=== PATIENT | male | born 1960 | race Caucasian/White ===

== ENCOUNTER 2019-06-15 09:35 | Emergency (ER) | payer MEDICAID ==
[~2019-06-15] VITALS: Ht 188 cm; Wt 95.3 kg
[2019-06-15 09:55] VITALS: BP 115/79
--- NOTE | 2019-06-15 10:20 | NUR ---
PATIENT PRESENTED TO ED C/O RIGHT LOWER LEG AND RIGHT FOOT ULCER, STATED "I RAN OUT OF MEDICATIONS AND SUPPLIES FOR MY WOUND", WOUND WITH MODERATE AMOUNT OF YELLOWISH DRAINAGE, NO ODOR, WOUND BED RED ON THE RIGHT LOWER LEG AND TOP OF FOOT, BOTTOM OF RIGHT FOOT WITH BLACK IN COLOR, NO C/O PAIN OR DISCOMFORT, PATIENT AAOX4, RR EVEN UNLABORED, AFEBRILE, ED MD DR. GARCIA MADE AWARE, BED IN LOWEST POSITION, WILL CONTINUE TO MONITOR CLOSELY. HX OF A-FIB, CHF, DM, HTN, LEFT BKA, RIGHT FOOT ULCER.
--- NOTE | 2019-06-15 10:33 | NUR ---
Patient discharged with v/s stable. Written and verbal after care instructions given and explained. Patient alert, oriented and verbalized understanding of instructions. Wheelchair bound. All questions addressed prior to discharge. Patient advised to follow up with PMD. Rx of augmentin 875 mg and doxycycline 100mg given. Patient educated on indication of medication including possible reaction and side effects. Opportunity to ask questions provided and answered.
[2019-06-15 10:34] VITALS: BP 115/79
== END 2019-06-15 10:33 | disposition home or self-care (01) ==
LOC: MED 09:35
DX: L98.499 Non-pressure chronic ulcer of skin of other sites with unspecified severity (principal); E11.9 Type 2 diabetes mellitus without complications; I11.0 Hypertensive heart disease with heart failure; I50.9 Heart failure, unspecified; Z98.890 Other specified postprocedural states
CPT/HCPCS: 82948; 99283

== ENCOUNTER 2019-06-16 19:58 | Inpatient (IN) | payer MEDICAID ==
[~2019-06-16] VITALS: Ht 188 cm; Wt 93.0 kg
[2019-06-16] MEDS: NACL 0.9% 1,000 ML IV SCH (09:11)
[2019-06-16 20:15] VITALS: BP 109/73
--- NOTE | 2019-06-16 20:24 | NUR ---
PT AMBULATED TO ER BED 8
[2019-06-16] MEDS ORDERED: NACL 0.9% 500 ML IV ONE (20:55)
--- NOTE | 2019-06-16 20:55 | NUR ---
PT C/O VOMITTING X1 TODAY AND LOSS OF APPETITE FOR 3DAYS. C/O GENERALIZED WEAKNESS. PT STATED "I'VE BEEN OUT OF MY HEART MEDS FOR 10 DAYS". PT WAS HERE YESTERDAY AND WAS GIVEN ANTIBIOTICS FOR HIS WOUNDS ON HIS RIGHT LOWER LEG AND RIGHT FOOT WOUNDS. C/O HEADACHE 5/10, NO BLURRY VISION, AAOX4, RR EVEN AND UNLABORED, TACHYCARDIC, ED MD DR. GARCIA MADE AWARE, WILL CONTINUE TO MONITOR CLOSELY, BED IN LOWEST POSITION.
[2019-06-16] MEDS ORDERED: DILTIAZEM 25 MG/5 ML VIAL IVP ONE (21:15)
[2019-06-16] MEDS ORDERED: ALUMINUM HYD/MAG/SIMETHICONE 30 ML UDC PO ONE (22:05)
[2019-06-16 22:08] LABS: BASOPHILS # (AUTO) 0.1 K/uL (0.00-0.22); BASOPHILS % (AUTO) 0.6 % (0.0-2.0); HEMATOCRIT 37.5 % (36-52); HEMOGLOBIN 11.6 g/dL (12.0-18.0); LYMPHOCYTES # (AUTO) 1.5 K/uL (2.0-11.5); LYMPHOCYTES % (AUTO) 13.6 % (20.5-51.1); MEAN CORPUSCULAR HEMOGLOBIN 26 pg (27-31); MEAN CORPUSCULAR HGB CONC 31 g/dL (33-37); MEAN CORPUSCULAR VOLUME 82.6 fL (80-94); MONOCYTES # (AUTO) 0.9 K/uL (0.8-1.0); MONOCYTES % (AUTO) 8.7 % (1.7-9.3); NEUTROPHILS # (AUTO) 8.2 K/uL (1.8-7.7); NEUTROPHILS % (AUTO) 77.1 % (42.2-75.2); PLATELET COUNT (AUTO) 235 K/uL (140-450); RED BLOOD CELL COUNT(AUTO) 4.54 MIL/uL (4.20-6.10); RED CELL DISTRIBUTION WIDTH 18.8 % (11.6-13.7); WHITE BLOOD COUNT (AUTO) 10.7 K/uL (4.8-10.8)
[2019-06-16 22:23] LABS: ANION GAP 13.8 (8-16); CARBON DIOXIDE 24.5 mmol/L (21-32); CREATININE 1.1 mg/dL (0.7-1.3); POTASSIUM 4.3 mmol/L (3.5-5.1)
--- NOTE | 2019-06-16 22:30 | NUR ---
PATIENT UNABLE TO GIVE URINE AT THIS TIME. WILL CONTINUE TO MONITOR CLOSELY.
[2019-06-16 22:31] LABS: ALBUMIN 2.6 g/dL (3.4-5.0); TOTAL BILIRUBIN 0.8 mg/dL (0.0-1.0)
[2019-06-16] MEDS ORDERED: PIPERACILLIN/TAZOBACTAM 3.375 GM in DEXTROSE 5% 50 ML IV ONE (22:45)
[2019-06-16] MEDS ORDERED: NACL 0.9% 1,000 ML IV ONE (22:45)
[2019-06-16] MEDS ORDERED: LORazepam 2 MG/ML VIAL IM/IVP PRN (23:00)
[2019-06-16] MEDS ORDERED: ONDANSETRON 4 MG/2 ML VIAL IM/IVP PRN (23:00)
[2019-06-16] MEDS ORDERED: DOCUSATE SODIUM 100 MG GELCAP PO PRN (23:00)
[2019-06-16] MEDS ORDERED: ACETAMINOPHEN 325 MG TAB PO PRN (23:00)
[2019-06-16] MEDS ORDERED: ZOLPIDEM 5 MG TAB PO PRN (23:00)
[2019-06-16] MEDS ORDERED: NITROGLYCERIN 0.4 MG TAB SL PRN (23:05)
[2019-06-16] MEDS ORDERED: PIPERACILLIN/TAZOBACTAM 3.375 GM VIAL IV ONE (23:17)
[2019-06-16 23:24] LABS: PROTHROMBIN TIME 14.5 secs (10.8-13.4)
[2019-06-16] MEDS ORDERED: DEXTROSE 50% 50 ML SYR IVP PRN (23:25)
[2019-06-16] MEDS ORDERED: HEPARIN PER PHARMACY MC PRN (23:30)
[2019-06-16 23:34] LABS: CHOL/HDL RATIO 3.8 (1-4.5); MAGNESIUM 1.8 mg/dL (1.8-2.4); PHOSPHORUS 3.2 mg/dL (2.5-4.9); THYROID STIMULATING HORMONE 1.7 uIU/mL (0.34-3.74)
--- NOTE | 2019-06-17 00:03 | NUR ---
PT TRANSPORTED TO [facility] RM 125B VIA GURNEY ON ACLS ACCOMPANIED BY 2RNS AND EMT, BEDSIDE REPORT GIVEN TO [facility] OWENS PT IN STABLE CONDITION
[2019-06-17 00:22] VITALS: BP 122/70
--- NOTE | 2019-06-17 00:22 | NUR ---
RECIEVED PT FROM ER / MAHESH ,LUIS M , AAOX4 .IV SITE INTACT AND PATENT , WITH LEFT LEG AMPUTATED , WITH RIGHT LEG AND FOOT OPEN WOUND - DRESSING DRY AND INTACT , TACHYCARDIC - 134 , ON O2 AT 4LPM/NC , ON NPO , TRANSFER TO BED , PLAN OF CARE DISCUSSED AND VERBALIZE UNDERSTANDING , MRSA PECIMEN COLLECTED AND SENT TO LAB . , ADMISSION ASSESSMENT DONE CALL LIGHT WITHIN REACH , PUT ON FALL PREVENTION PROTOCOL - BED ON LOW POSITION , SIDR RAILS UP X2 , WILL CONT. TO MONITOR.
[2019-06-17] MEDS ORDERED: FUROSEMIDE 20 MG/2 ML VIAL IVP SCH (00:25)
[2019-06-17] MEDS ORDERED: hePARIN / DEXT 5% PREMIX 250 ML IV SCH (01:25)
--- NOTE | 2019-06-17 01:48 | NUR ---
SENT TO CT DEPT - CT W/O CONTRAST OF AD=BD. AND PELVIS AND HEAD -DONE- PROCEDURE TOLERATED WELL.
[2019-06-17] MEDS ORDERED: METOPROLOL 25 MG TAB PO SCH ×3 (02:00→09:00)
--- NOTE | 2019-06-17 02:10 | NUR ---
BACK TO ROOM , PT STILL TACHYCARDIC , O2 SAT 95% , CALL LIGHT WITH REACH , REFER TO MOLLY MADE ORDER AND CARRIED OUT, WILL CONT. TO MONITOR
[2019-06-17] MEDS: MORPHINE SULFATE 2 MG/ML SYR IVP PRN ×2 (02:12→15:55)
[2019-06-17] MEDS ORDERED: PANTOPRAZOLE 40 MG INJ VIAL IVP ONE (02:30)
--- NOTE | 2019-06-17 02:30 | NUR ---
HEPARIN DRIP STARTED ORDERED , RESP. EVEN AND UNLABORED , CALL LIGHT WITHIN REACH , VOMITING , WILL CONT. TO MONITOR.
[2019-06-17] MEDS ORDERED: PANTOPRAZOLE 40 MG TABEC PO SCH ×3 (02:45→09:00)
[2019-06-17] MEDS ORDERED: BISACODYL 10 MG SUPP RC SCH (02:50)
[2019-06-17] MEDS ORDERED: ALUMINUM HYD/MAG/SIMETHICONE 30 ML UDC PO SCH (03:05)
[2019-06-17 04:00] VITALS: BP 124/65
--- NOTE | 2019-06-17 04:00 | NUR ---
MADE ROUNDS , RESP. EVEN AND UNLABORED , CALL LIGHT WITHIN REACH , WILL CONT. TO MONITOR. THE ER NURSE TRIED TO IV CANNULA INSERTION FOR ANOTHER ACCESS FOR IVF -BUT FAILED . INFROMED MOLLY.
[2019-06-17] MEDS ORDERED: DILTIAZEM 25 MG/5 ML VIAL IVP ONE (04:50)
--- NOTE | 2019-06-17 05:36 | NUR ---
PT REFUSED IV INSERTION AT THIS MOMENT, PT STATED LATER, HE IS NOT FEELING GOOD RIGHT NOW, EXPLAIN TO PT THE RISK AND BENEFITS PT STILL REFUSED.
[2019-06-17] MEDS: ALBUTEROL SULFATE/IPRATROPIU 3 ML SOL IH SCH ×3 (05:51→20:09)
[2019-06-17] MEDS ORDERED: PIPERACILLIN/TAZOBACTAM 3.375 GM in DEXTROSE 5% 50 ML IV SCH (06:00)
--- NOTE | 2019-06-17 06:00 | NUR ---
MADE ROUNDS , S/E BY MOLLY - NO FURTHER ORDERS MADE , CALL LIGHT WITHIN REACH , WILL CONT. TO MONITOR .
[2019-06-17] MEDS: BLOOD GLUCOSE MONITORING 1 DEV DEV FS SCH ×4 (06:36→21:20)
--- NOTE | 2019-06-17 07:00 | NUR ---
RECEIVED BEDSIDE REPORT FROM NIGHT NURSE. PT IS RESTING IN BED AOX4 BREATHING UNLABORED WITHOUT OBVIOUS SIGNS OF IMMEDIATE DISTRESS. NIGHT NURSE INFORMED ME SHE HAD NOT ADMINISTERED PM IV MEDICATIONS INCLUDING DILTIAZEM, ZOSYN, OR NORMAL SALINE WHILE PATIENT WAS RECEIVING IV HEPARIN THERAPY AND THAT PATIENT WAS AWAITING PICC LINE FOR FURTHER IV MEDICATION ADMINISTRATION. PT HAS HEPARIN INFUSING AT 1000 UNITS CURRENTLY THROUGH A RIGHT UPPER ARM IV THAT IS ASYMPTOMATIC AND PATENT. PT HAS ALL SAFETY MEASURES IN PLACE AND CALL LIGHT WITHIN REACH. PT HAS DRY AND INTACT DRESSINGS TO RIGHT LOWER EXTREMITY WITH NO ODOR. NIGHT NURSE INFORMED ME PATIENT BASELINE HEART RATE HAS BEEN ELEVATED ALL NIGHT AT TACHYCARDIA AND THIS IS NOT A NEW OCCURRENCE IF HEART RATE IS ELEVATED IN 140S WHEN I ASSESS.
--- NOTE | 2019-06-17 07:00 | NUR ---
ENDORSED TO AM SHIFT NURSE FOR CONTINUITY OF CARE - ON CLOSELY MONITOR.
[2019-06-17 08:00] VITALS: BP 130/98
[2019-06-17] MEDS: LACTOBACILLUS RHAMNOSUS GG 1 EACH CAP PO SCH (08:15)
[2019-06-17] MEDS: ASCORBIC ACID 500 MG TAB PO SCH (08:15)
[2019-06-17] MEDS: NICOTINE TRANSD SYS 14 MG/24 HR PATCH TD SCH ×2 (08:15→08:21)
[2019-06-17] MEDS: ASPIRIN 81 MG TAB.CHEW PO SCH (08:15)
[2019-06-17] MEDS: FERROUS SULFATE 325 MG TABEC PO SCH (08:16)
--- NOTE | 2019-06-17 08:21 | NUR ---
ADMINISTERED MEDICATIONS. SPOKE WITH CHARGE NURSE REGARDING HEPARIN SUBCUTANEOUS ORDERED WELL HEPARIN DRIP. SHE SPOKE TO PHARMACY AND CLARIFIED TO DISCONTINUE HEPARIN DRIP RIGHT NOW AND TO CALL BACK IN ABOUT AN HOUR REGARDING HEPARIN ADMINISTRATION FOR SUBCUTANEOUS. PT ALSO REFUSED NICOTINE PATCH. LABORER POWERHOUSE AT BEDSIDE RIGHT NOW PERFORMING WOUND CARE AND ASSESSMENT AND ULTRASOUND ALSO AT BEDSIDE.
--- NOTE | 2019-06-17 08:25 | NUR ---
AGENT TELEGRAPHER INFORMED ME WRITTEN ORDER FOR WOUND CARE INSTRUCTIONS ARE IN THE PATIENT CHART FOR REFERENCE FOR THE WOUND CARE INSTRUCTIONS.
--- NOTE | 2019-06-17 08:27 | NUR ---
SPOKE WITH PHARMACY REGARDING ZOSYN AND DILTIAZEM NOT ADMINISTERED ON PRIOR SHIFT AND IF I SHOULD ADMINISTER THESE MEDICATIONS NOW. SHE INFORMED ME SHE WOULD CHANGE THE TIMES AND TO ADMINISTER THESE MEDICATIONS NOW PENDING TIME CHANGES.
[2019-06-17] MEDS ORDERED: DILTIAZEM 25 MG/5 ML VIAL IVP SCH (08:29)
--- NOTE | 2019-06-17 08:47 | NUR ---
CALLED PICC LINE NURSE, AT [phone]. GOT CONSENT AND ALSO PICC LINE SUPPLIES. K[facility] PICC LINE NURSE WILL BE HERE IN 15 MINS. PHARMACY DATA ANALYST AT BEDSIDE
[2019-06-17] MEDS ORDERED: LISINOPRIL 5 MG TAB PO SCH (09:00)
[2019-06-17] MEDS: PIPERACILLIN/TAZOBACTAM 3.375 GM in DEXTROSE 5% 50 ML IV SCH ×3 (09:11→21:21)
--- NOTE | 2019-06-17 09:22 | NUR ---
ADMINISTERED MEDICATIONS CLARIFIED WITH PHARMACY TO ONLY ADMINISTER THE ONE DILTIAZEM ON EMAR AND ADMINISTER ZOSYN NOW. NO DISTRESS OF PT.
--- NOTE | 2019-06-17 09:30 | NUR ---
SPOKE TO DR TENA AT THIS TIME AFTER RECEIVING CALL AT 0907 REGARDING TROPONIN 0.078 AND LACTIC ACID 6.4 SHE INFORMED ME TO CALL RT AND REQUEST BREATHING TREATMENT WHICH I DID. NO FURTHER ORDERS OR OTHER CHANGES.
--- NOTE | 2019-06-17 09:58 | NUR ---
PT RESTING IN BED ULTRASOUND AT BEDSIDE.
--- NOTE | 2019-06-17 10:08 | NUR ---
REASSESSED BLOOD PRESSURE AND PULSE AFTER DILTIAZEM FOUND TO BE 129/90 AND 116 FOR PULSE. PT RESTING IN BED ULTRASOUND AT BEDSIDE. ALSO ADMINISTERED SUBCUTANEOUS HEPARIN. NO SIGNS OF DISTRESS AT THIS TIME.
[2019-06-17] MEDS ORDERED: VANCOMYCIN PER PHARMACY MC PRN (10:20)
--- NOTE | 2019-06-17 10:22 | NUR ---
PT RESTING IN BED HELPED SIT HIM UP TO FINISH HIS BREAKFAST. NO OTHER REQUESTS.
[2019-06-17] MEDS: INSULIN LISPRO SLIDING SCALE 100 UNITS/ML VIAL SUBQ PRN ×3 (11:10→21:37)
--- NOTE | 2019-06-17 11:11 | NUR ---
ADMINISTERED INSULIN PER SLIDING SCALE. PT RESTING IN BED REPOSITIONING HIMSELF AND DENYING ANY REQUESTS WITH NO DISTRESS.
[2019-06-17] MEDS: VANCOMYCIN 1,500 MG in DEXTROSE 5% 500 ML IV SCH (11:41)
--- NOTE | 2019-06-17 11:44 | NUR ---
ADMINISTERED MEDICATION. PT RESTING IN BED NO DISTRESS.
[2019-06-17 12:00] VITALS: BP 123/90
--- NOTE | 2019-06-17 13:19 | NUR ---
SPOKE TO ELBA PIERRE, THAT PATIENT NEEDS CAM BOOT PER PODIATRY. SHE WILL CONTACT PATIENTS INSURANCE IN REGARDS TO THE CAM BOOT
--- NOTE | 2019-06-17 13:20 | NUR ---
PT RESTING IN BED WITH NO DISTRESS. SPOKE TO HIM ABOUT HIS REQUESTED [facility] STATED THAT HE TAKES 60MG DAILY AND GETS IT AT [facility]" I SPOKE WITH DR TENA AND INFORMED HER OF THIS AND THAT THE [facility] IS CLOSED CURRENTLY AND ACCORDING TO PATIENT IS ONLY OPEN DURING THE EARLY MORNINGS 5 TO 9 AM. AWARE.
[2019-06-17] MEDS ORDERED: RIVAROXABAN 10 MG TAB PO SCH (14:00)
--- NOTE | 2019-06-17 14:08 | NUR ---
ADMINISTERED MEDICATIONS PER ORDER. PT RESTING IN BED AND THEN FELL ASLEEP AFTER ADMINISTRATION BREATHING UNLABORED AND WITHOUT DISTRESS.
[2019-06-17] MEDS: NACL 0.9% 1,000 ML IV SCH (15:08)
--- NOTE | 2019-06-17 15:16 | NUR ---
AT 1450 THIS NURSE WAS ON LUNCH BREAK WHEN I WAS CALLED TO COME TO PATIENT'S ROOM FOR MIDLINE ISSUE. WHEN I ARRIVED AT ROOM ONE OF THE LUMENS OF THE MIDLINE HAD BEEN CONNECTED WITH BOTH LURE LOCK WHITE CAPS ON THE SAME LUMEN (RED ONE) WHILE THE PURPLE LUMEN WAS CURRENTLY LEFT OPEN TO AIR. PT STATED THAT THE LINES HAD PULLED OFF OF THE LUMENS AND WERE HANGING AND SOMEONE HAD RECONNECTED THE ONE IV LINE ON TOP OF THE OTHER. I THEN REPLACED BOTH LURE LOCKS AND CLEANED BOTH LUMENS WITH ALCOHOL AND INFORMED MD OF WHAT HAD HAPPENED. THEY INFORMED ME TO CONTACT THE PICC LINE NURSE FOR FURTHER ADVICE. I THEN LEFT A MESSAGE WITH PICC LINE NURSE NUMBER TO CONTACT ME SOON POSSIBLE.
[2019-06-17] MEDS ORDERED: METO25TA PO (15:22)
[2019-06-17] MEDS ORDERED: ATOR20TA PO (15:22)
[2019-06-17] MEDS ORDERED: RIVA20TA4 PO (15:22)
[2019-06-17] MEDS ORDERED: INSU100I7 SQ (15:22)
[2019-06-17] MEDS ORDERED: DEXTROSE 50% 50 ML SYR IVP PRN (15:25)
[2019-06-17] MEDS ORDERED: INSULIN LISPRO SLIDING SCALE 100 UNITS/ML VIAL SUBQ PRN (15:25)
--- NOTE | 2019-06-17 15:37 | NUR ---
WAS INFORMED BY CHARGE NURSE THAT PICC LINE NURSE INFORMED TO ASPIRATE AND FLUSH LINES. INFORMED HER THAT IS WHAT I DID WHEN I REPLACED THE LURE LOCK LINES FOR THE MIDLINE.
[2019-06-17 16:00] VITALS: BP 115/89
[2019-06-17] MEDS: SODIUM FERRIC GLUCONATE 125 MG in NACL 0.9% 100 ML IV SCH (16:26)
[2019-06-17] MEDS ORDERED: BLOOD GLUCOSE MONITORING 1 DEV DEV FS SCH (16:30)
--- NOTE | 2019-06-17 16:37 | NUR ---
ADMINISTERED MEDICATION AND BROUGHT PATIENT A CUP OF TEA PER HIS REQUEST. NO OTHER REQUESTS OR SIGNS OF DISTRESS.
--- NOTE | 2019-06-17 16:50 | NUR ---
ATTEMPTED 2X TIMES TO CALL PHARMACY AND 1X ATTEMPT AT PHYSICALLY GOING TO PHARMACY TO REQUEST Z GUARD FOR PATIENT BE BROUGHT UP FOR MD ORDER. NO ANSWER TO PHONE OR DOOR ON ATTEMPTS.
[2019-06-17 16:51] LABS: BASOPHILS % (AUTO) 0.5 % (0.0-2.0); EOSINOPHILS % (AUTO) 0.3 % (0.0-4.0); HEMATOCRIT 37.7 % (36-52); HEMOGLOBIN 11.7 g/dL (12.0-18.0); LYMPHOCYTES # (AUTO) 1.2 K/uL (2.0-11.5); LYMPHOCYTES % (AUTO) 14.8 % (20.5-51.1); MEAN CORPUSCULAR HEMOGLOBIN 25 pg (27-31); MEAN CORPUSCULAR HGB CONC 31 g/dL (33-37); MEAN CORPUSCULAR VOLUME 81.8 fL (80-94); MONOCYTES # (AUTO) 0.7 K/uL (0.8-1.0); MONOCYTES % (AUTO) 8.5 % (1.7-9.3); NEUTROPHILS # (AUTO) 6.1 K/uL (1.8-7.7); NEUTROPHILS % (AUTO) 75.9 % (42.2-75.2); PLATELET COUNT (AUTO) 157 K/uL (140-450); RED BLOOD CELL COUNT(AUTO) 4.61 MIL/uL (4.20-6.10); RED CELL DISTRIBUTION WIDTH 19.1 % (11.6-13.7)
[2019-06-17 17:11] LABS: ANION GAP 14.1 (8-16); CARBON DIOXIDE 25.3 mmol/L (21-32); POTASSIUM 4.4 mmol/L (3.5-5.1)
--- NOTE | 2019-06-17 17:46 | NUR ---
PT RESTING IN BED NO DISTRESS OR REQUESTS.
--- NOTE | 2019-06-17 18:09 | NUR ---
PT RESTING IN BED NO SIGNS OF DISTRESS. BREATHING UNLABORED.
--- NOTE | 2019-06-17 19:00 | NUR ---
GAVE BEDSIDE REPORT TO NIGHT NURSE. ENDORSED WC ORDERS IN CHART IN PAPER FORM FOR FURTHER INSTRUCTIONS. PT IN STABLE CONDITION.
--- NOTE | 2019-06-17 19:00 | NUR ---
RECEIVED REPORT FORM HAYLEE RN DAYSHIFT AT BEDSIDE FOR CONTINUITY OF CARE, PT IN STABLE CONDITION
[2019-06-17 20:00] VITALS: BP 99/72
--- NOTE | 2019-06-17 20:00 | NUR ---
PT IN BED ALL FALLS PRECAUTIONS IN PLACE. PT IS AOX3-4. IV SITE IN LEFT AC 20G INTACT AND FLUSHED PATENT. PT ALSO HAS R UPPER MIDLINE DOUBLE LUMEN RUNNING N/S ORDERED. PT RIGHT FOOT DRESSING DRY AND INTACT. ALL REQUESTED NEEDS ATTENDED AND V/S FOLLOWS T 97.2 P 116 R 18 B/P 99/72 02 98% ON 2 LITERS VIA N/C. Addendum: 06/17/19 at 2351 by Isaura Petty RN PT HAS LEFT UPPER MIDLINE DOUBLE LUMEN CATH AND RIGHT ARM 20 G
[2019-06-17] MEDS ORDERED: DILTIAZEM 30 MG TAB PO SCH (21:00)
[2019-06-17] MEDS: METOPROLOL 25 MG TAB PO SCH (21:00)
--- NOTE | 2019-06-17 21:00 | NUR ---
PT FINGERSTICK IS 208, PT GIVEN 4 UNITS OF COVERAGE SUB Q. LOPRESSOR HELD DUE TO LOW B/P (99/72). PT ALSO GIVEN LANTUS COVERAGE AND A DIABETIC SNACK. IV SITE ON RIGHT UPPER ARM DISCONTINUED DUE TO FUNCTIONING MIDLINE ON LEFT UPPER ARM. ALL REQUESTED NEEDS ATTENDED AND CALL SMITH IN REACH. ALL FALLS AND CONTACT PRECAUTIONS IN PLACE.
[2019-06-17] MEDS: ATORVASTATIN 20 MG TAB PO SCH (21:27)
[2019-06-17] MEDS: INSULIN LANTUS 100 UNITS/ML 10 ML VIAL SUBQ SCH (21:47)
--- NOTE | 2019-06-17 23:30 | NUR ---
GERMAN MARIE AND IS RUNNING AT 250MLS ORDERED.
[2019-06-18] VITALS: BP 102/78
[2019-06-18] MEDS: VANCOMYCIN 1,500 MG in DEXTROSE 5% 500 ML IV SCH ×3 (00:17→23:28)
--- NOTE | 2019-06-18 00:35 | NUR ---
PT TRANSFERRED TO A WOUND BED. V/S FOLLOWS T 97.0 P 116 R 18 B/P 102/78 02 95% WITH 2 LITERS VIA N/C. ALL FALLS PRECAUTIONS IN PLACE AND ALL REQUESTED NEEDS ATTENDED.
[2019-06-18] MEDS: MORPHINE SULFATE 2 MG/ML SYR IVP PRN (02:00)
--- NOTE | 2019-06-18 02:00 | NUR ---
PT C/O OF SEVERE GENERALIZED PAIN, PT GIVEN MORPHINE PRN/IVP ORDERED. WILL MONITOR FOR EFFECT. ALL FALLS PRECAUTIONS IN PLACE, ALL REQUESTED NEEDS ATTENDED. CALL SMITH IN REACH.
[2019-06-18 04:00] VITALS: BP 96/63
--- NOTE | 2019-06-18 04:00 | NUR ---
PT IN BED ALL FALLS PRECAUTIONS AND CONTACT PRECAUTIONS IN PLACE. V/S T 97.6 P 129 R 18 B/P 96/63 02 94 WITH 2 LITERS VIA N/C. PT C/O MILD PAIN BUT TOLERABLE.
[2019-06-18] MEDS: HYDROcodone/APAP 5/325 MG 1 TAB TAB PO PRN (05:10)
--- NOTE | 2019-06-18 05:24 | NUR ---
PT C/O MODERATE PAIN IN RIBS, GIVEN 1 TAB OF NORCO PO/PRN. PT REQUEST FOLLOW UP CONCERNING METHADONE. PT SAID HE WAS TAKING 60 MG DAILY. HE REQUESTED THAT MD FOLLOW UP WITH CLINIC, RESIDENTS MADE AWARE.
[2019-06-18] MEDS: PANTOPRAZOLE 40 MG TABEC PO SCH (06:32)
[2019-06-18] MEDS: BLOOD GLUCOSE MONITORING 1 DEV DEV FS SCH ×4 (06:45→20:56)
[2019-06-18] MEDS: FUROSEMIDE 20 MG/2 ML VIAL IVP SCH ×2 (06:54→09:00)
--- NOTE | 2019-06-18 07:00 | NUR ---
LASIX ORDERED STAT BY DAMEON RIVERA MD MADE AWARE OF B/P 96/63. STILL WANTS LASIX TO BE GIVEN IVP.
--- NOTE | 2019-06-18 07:04 | NUR ---
RESIDENT IN ROOM MAKING AM ROUNDS. PT WAS GETTING OUT OF BREATH AND USING SOME ACCESSORY MUSCLES TO BREATH. RT CALLED TO GIVE NEB TREATMENT. MD DR XIAO ORDERED LASIX TO BE GIVEN STAT. LASIX GIVEN ALSO DAMEON RIVERA SAID THAT FLUIDS SHOULD BE TKO, BUT NO RATE WAS ORDERED AT THIS TIME. DIET WAS ALSO CHANGED DUE TO PT TOLERATING CLEAR LIQUID ID WELL TOLERATED. LABS DRAWN FROM MIDLINE AND SENT TO LAB. WILL ENDORSE PLAN OF CARE TO NEXT SHIFT. PT IN LOW BED
--- NOTE | 2019-06-18 07:10 | NUR ---
RECEIVED REPORT FROM RESOURCE ROOM TEACHER NURSE STEFFI FOR CONTINUITY OF CARE. PT IN STABLE CONDITION. IV INTACT AND PATENT. RESPIRATIONS EVEN AND UNLABORED. O2 2L VIA NC INTACT AND PATENT. SAFETY MEASURES IN PLACE. BED IN LOW POSITION. BED ALARM ON. CALL LIGHT AT BEDSIDE. WILL CONTINUE TO MONITOR.
[2019-06-18 07:41] LABS: MAGNESIUM 1.8 mg/dL (1.8-2.4); PHOSPHORUS 1.7 mg/dL (2.5-4.9)
[2019-06-18] MEDS: ALBUTEROL SULFATE/IPRATROPIU 3 ML SOL IH SCH ×3 (07:45→20:28)
[2019-06-18 07:47] LABS: BASOPHILS % (AUTO) 0.3 % (0.0-2.0); EOSINOPHILS # (AUTO) 0.1 K/uL (0-0.4); EOSINOPHILS % (AUTO) 0.7 % (0.0-4.0); HEMOGLOBIN 10.3 g/dL (12.0-18.0); LYMPHOCYTES # (AUTO) 0.5 K/uL (2.0-11.5); MEAN CORPUSCULAR HEMOGLOBIN 26 pg (27-31); MEAN CORPUSCULAR HGB CONC 31 g/dL (33-37); MEAN CORPUSCULAR VOLUME 81.5 fL (80-94); MONOCYTES # (AUTO) 0.5 K/uL (0.8-1.0); MONOCYTES % (AUTO) 5.7 % (1.7-9.3); NEUTROPHILS # (AUTO) 7.5 K/uL (1.8-7.7); NEUTROPHILS % (AUTO) 87.3 % (42.2-75.2); PLATELET COUNT (AUTO) 167 K/uL (140-450); RED BLOOD CELL COUNT(AUTO) 4.05 MIL/uL (4.20-6.10); WHITE BLOOD COUNT (AUTO) 8.5 K/uL (4.8-10.8)
[2019-06-18 08:00] VITALS: BP 113/83
--- NOTE | 2019-06-18 08:17 | NUR ---
CRITICAL VALUE TROPONIN 0.089. DR. DRAPER AWARE. WILL CONTINUE TO MONITOR.
[2019-06-18 08:36] LABS: CARBON DIOXIDE 26.6 mmol/L (21-32); CREATININE 0.8 mg/dL (0.7-1.3); POTASSIUM 3.6 mmol/L (3.5-5.1)
--- NOTE | 2019-06-18 08:40 | NUR ---
FAXED OVER MEDICAL RELEASE FOR TO [facility] PT RECEIVES METHADONE 60MG DAILY. SPOKE TO BETH. RELEASE PAPERWORK IN PT CHART.
[2019-06-18] MEDS ORDERED: PANTOPRAZOLE 40 MG TABEC PO SCH (09:00)
[2019-06-18] MEDS: NICOTINE TRANSD SYS 14 MG/24 HR PATCH TD SCH (09:00)
--- NOTE | 2019-06-18 09:00 | NUR ---
ELVIEIX HELD DUE TO EARLY MEDICATION ADMINISTRATION AT 0704. PT IN STABLE CONDITION. BED IN LOW POSITION. BED ALARM ON. CALL LIGHT AT BEDSIDE. WILL CONTINUE TO MONITOR.
[2019-06-18] MEDS: ASPIRIN 81 MG TAB.CHEW PO SCH (09:41)
[2019-06-18] MEDS: FERROUS SULFATE 325 MG TABEC PO SCH (09:42)
[2019-06-18] MEDS: LACTOBACILLUS RHAMNOSUS GG 1 EACH CAP PO SCH (09:42)
[2019-06-18] MEDS: LISINOPRIL 5 MG TAB PO SCH (09:42)
[2019-06-18] MEDS: ASCORBIC ACID 500 MG TAB PO SCH (09:42)
[2019-06-18] MEDS: METOPROLOL 25 MG TAB PO SCH (09:43)
[2019-06-18] MEDS: PIPERACILLIN/TAZOBACTAM 3.375 GM in DEXTROSE 5% 50 ML IV SCH ×3 (09:47→20:57)
[2019-06-18] MEDS: RIVAROXABAN 10 MG TAB PO SCH (10:03)
--- NOTE | 2019-06-18 10:15 | NUR ---
PODIATRY AT BEDSIDE AT THIS TIME. PT IN STABLE CONDITION. RESPIRATIONS EVEN AND UNLABORED. BED IN LOW POSITION. BED ALARM ON. CALL LIGHT AT BEDSIDE. WILL CONTINUE TO MONITOR.
[2019-06-18] MEDS: Z-GUARD PASTE TP SCH (10:16)
[2019-06-18] MEDS ORDERED: ALUMINUM HYD/MAG/SIMETHICONE 30 ML UDC PO SCH (11:05)
[2019-06-18] MEDS ORDERED: LIDOCAINE VISCOUS 2% 20 ML UDC PO SCH (11:06)
[2019-06-18] MEDS ORDERED: DICYCLOMINE HCL LIQUID 10 MG/5 ML UDC PO SCH (11:06)
[2019-06-18 12:00] VITALS: BP 121/74
--- NOTE | 2019-06-18 12:10 | NUR ---
PATIENT HAS BEEN SCREENED AND CATEGORIZED HIGH NUTRITION RISK. PATIENT WILL BE SEEN WITHIN 1-2 DAYS OF ADMISSION. 06/17/19 - 06/18/19 ARABELLA COX MBA, RD
--- NOTE | 2019-06-18 12:47 | NUR ---
PT EATING AT THIS TIME IN STABLE CONDITION. RESPIRATIONS EVEN AND UNLABORED. BED IN LOW POSITION. BED ALARM ON. CALL LIGHT AT BEDSIDE. WILL CONTINUE TO MONITOR.
[2019-06-18] MEDS ORDERED: DILTIAZEM 25 MG/5 ML VIAL IVP SCH (13:07)
--- NOTE | 2019-06-18 13:28 | NUR ---
GAVE ORDERED MEDICATION CARDIZEM DUE TO PT HR 166.
[2019-06-18] MEDS: INSULIN LISPRO SLIDING SCALE 100 UNITS/ML VIAL SUBQ PRN ×3 (13:36→21:03)
[2019-06-18] MEDS ORDERED: SODIUM PHOS / POTASSIUM PHOS 1 PKT PDR PO SCH (14:56)
--- NOTE | 2019-06-18 15:15 | NUR ---
06/18/19 RD INITIAL ASSESSMENT COMPLETED PLEASE REFER TO NUTRITION ASSESSMENT UNDER CARE ACTIVITY FOR ESTIMATED NUTRITIONAL NEEDS. RD RECOMMENDATIONS: 1. RECOMMEND CONTINUE CARDIAC DIET, SUFFICIENT TO MEET >75% ESTIMATED NUTRITIONAL NEEDS 2. F/U 3-5 DAYS; MODERATE RISK ARABELLA COX MBA, RD
--- NOTE | 2019-06-18 15:38 | NUR ---
EKG BEING PREFORMED AT BEDSIDE BY RT AT THIS TIME. PT IN STABLE CONDITION.
[2019-06-18 16:00] VITALS: BP 107/85
[2019-06-18] MEDS: DILTIAZEM 25 MG/5 ML VIAL IVP SCH ×2 (16:00→16:03)
--- NOTE | 2019-06-18 16:03 | NUR ---
GAVE ORDERED CARDIZEM MEDICATION DUE TO HR 138.
[2019-06-18] MEDS ORDERED: METHADONE 10 MG TAB PO SCH (16:55)
[2019-06-18] MEDS: SODIUM FERRIC GLUCONATE 125 MG in NACL 0.9% 100 ML IV SCH (17:41)
[2019-06-18] MEDS ORDERED: METOPROLOL 50 MG TAB ONE (17:47)
--- NOTE | 2019-06-18 18:01 | NUR ---
PT SLEEPING AT THIS TIME. RESPIRATIONS EVEN AND UNLABORED. BED IN LOW POSITION. BED ALARM ON. CALL LIGHT AT BEDSIDE. WILL CONTINUE TO MONITOR.
--- NOTE | 2019-06-18 19:18 | NUR ---
GAVE REPORT TO CONSULTANTS INTERN NURSE DAMEON FOR CONTINUITY OF CARE. PT IN STABLE CONDITION.
--- NOTE | 2019-06-18 19:19 | NUR ---
RECEIVED PT FROM [facility]. A/O X4 PERSON, PLACE TIME AND EVENT. DISCUSSED PLAN OF CARE. VERBALIZED UNDERSTANDING. NASAL CANULA 2L. NO RESPIRATORY DISTRESS. SKIN IS NON INTACT. R FOOT WOUND. DRESSING CLEAN DRY AND INTACT. NO DRAINAGE NOTED. LEFT LOWER LEG AMPUTATION. CONTACT PRECAUTIONS IN PLACE. MIDLINE BREONNA DOUBLE LUMEN. PATENT AND INTACT. BEDREST. FALL RISK PROTOCOL IN PLACE. BED IN LOWEST POSITION. CALL LIGHT WITHIN REACH. WILL CONTINUE.
[2019-06-18 20:00] VITALS: BP 115/85
[2019-06-18] MEDS: ATORVASTATIN 20 MG TAB PO SCH (21:00)
[2019-06-18] MEDS: METOPROLOL 50 MG TAB PO SCH (21:00)
[2019-06-18] MEDS ORDERED: METOPROLOL 25 MG TAB PO SCH (21:00)
--- NOTE | 2019-06-18 21:00 | NUR ---
METOPROLOL NOT GIVEN DUE TO DAYSHIFT RN GIVING DOSE AT 1743. CURRENT BP 115/85. HR UNCONTROLLED A FIB. MAINTAINING IN THE 140'S. WILL CONTINUE TO MONITOR.
[2019-06-18] MEDS: INSULIN LANTUS 100 UNITS/ML 10 ML VIAL SUBQ SCH (21:02)
--- NOTE | 2019-06-18 23:00 | NUR ---
DR BARROSO UNDER DR COOPER GROUP MADE AWARE OF PT UNCONTROLLED AFIB MAINTAINING IN THE 140'S. SAYS TO UPDATE HER IF HR INCREASES. WILL CONTINUE TO MONITOR.
[2019-06-18] MEDS: ALBUTEROL SULFATE/IPRATROPIU 3 ML SOL IH PRN (23:43)
[2019-06-19] VITALS (36 sets, daily range): BP systolic 88–176; BP diastolic 23–89
--- NOTE | 2019-06-19 | NUR ---
BREATHING TREATMENT CALLED FOR PT. O2 SAT 94%. HR REMAINS AT 144.
--- NOTE | 2019-06-19 00:15 | NUR ---
RT AT BEDSIDE.
[2019-06-19] MEDS ORDERED: FAMOTIDINE 20 MG TAB ONE (00:25)
[2019-06-19] MEDS: FAMOTIDINE 20 MG TAB PO SCH ×2 (00:53→09:44)
--- NOTE | 2019-06-19 01:29 | NUR ---
PT REQUESTED PAIN MEDS. WILL MEDICATE WITH PRN PAIN MEDICATION.
[2019-06-19] MEDS: HYDROcodone/APAP 5/325 MG 1 TAB TAB PO PRN (01:35)
--- NOTE | 2019-06-19 03:00 | NUR ---
ASSISTED WITH [facility]. TOLERATED WELL. NO PT DISTRESS. REQUESTED COLACE PRN. WILL ADMINISTER AND WILL CONTINUE TO MONITOR.
--- NOTE | 2019-06-19 04:00 | NUR ---
PT REFUSED VITALS TO BE TAKEN, STATES HE HASN'T BEEN ABLE TO REST DUE TO CONSTANT INTERRUPTION WITH HIS SLEEP. NO SIGNS OF RESP DISTRESS. NO LABORED BREATHING. NO SOB. EVEN CHEST RISE. HR 123. O2 SAT 94%. WILL CONTINUE TO MONITOR.
[2019-06-19] MEDS: PANTOPRAZOLE 40 MG TABEC PO SCH (05:35)
[2019-06-19] MEDS: BLOOD GLUCOSE MONITORING 1 DEV DEV FS SCH ×4 (05:39→21:00)
[2019-06-19] MEDS: INSULIN LISPRO SLIDING SCALE 100 UNITS/ML VIAL SUBQ PRN ×3 (06:09→16:34)
--- NOTE | 2019-06-19 06:10 | NUR ---
BLOOD GLUCOSE 211. 4 UNITS OF HUMALOG GIVEN. EDUCATED ON SIDE EFFECTS. VERBALIZED UNDERSTANDING. TOLERATED WELL.
--- NOTE | 2019-06-19 06:17 | NUR ---
WILL ENDORSE PT TO DAYSHIFT RN FOR CONTINUITY OF CARE. PT IN STABLE CONDITION. WILL CONTINUE TO MONITOR.
[2019-06-19 06:48] LABS: ANION GAP 10.8 (8-16); CARBON DIOXIDE 27.8 mmol/L (21-32); POTASSIUM 4.6 mmol/L (3.5-5.1)
[2019-06-19 06:49] LABS: CREATININE 0.8 mg/dL (0.7-1.3)
[2019-06-19 06:56] LABS: BASOPHILS % (AUTO) 0.2 % (0.0-2.0); EOSINOPHILS % (AUTO) 0.1 % (0.0-4.0); HEMATOCRIT 33.4 % (36-52); HEMOGLOBIN 10.6 g/dL (12.0-18.0); LYMPHOCYTES # (AUTO) 0.7 K/uL (2.0-11.5); MEAN CORPUSCULAR HEMOGLOBIN 26 pg (27-31); MEAN CORPUSCULAR HGB CONC 32 g/dL (33-37); MEAN CORPUSCULAR VOLUME 81.6 fL (80-94); MONOCYTES # (AUTO) 0.7 K/uL (0.8-1.0); MONOCYTES % (AUTO) 9.8 % (1.7-9.3); NEUTROPHILS # (AUTO) 5.3 K/uL (1.8-7.7); NEUTROPHILS % (AUTO) 78.9 % (42.2-75.2); PLATELET COUNT (AUTO) 154 K/uL (140-450); RED BLOOD CELL COUNT(AUTO) 4.09 MIL/uL (4.20-6.10); RED CELL DISTRIBUTION WIDTH 19.1 % (11.6-13.7); WHITE BLOOD COUNT (AUTO) 6.7 K/uL (4.8-10.8)
[2019-06-19] MEDS: ALBUTEROL SULFATE/IPRATROPIU 3 ML SOL IH SCH ×3 (07:03→19:00)
[2019-06-19 07:13] LABS: APPEARANCE,URINE CLEAR (CLEAR); BILIRUBIN,URINE 1+ (NEGATIVE); BLOOD, URINE NEGATIVE (NEGATIVE); COLOR,URINE YELLOW (YELLOW); LEUKOCYTE ESTERASE ,URINE NEGATIVE (NEGATIVE); UGLUCOSE 2+ (NEGATIVE)
--- NOTE | 2019-06-19 07:19 | NUR ---
RECEIVED PT FROM PRINTED CIRCUIT BOARDS PINNER RN DAMEON. PT IS AAOX4 TO PERSON, PLACE TIME AND EVENT. PT ON O2 2L VIA NASAL CANULA. NO RESPIRATORY DISTRESS NOTED AT THIS TIME. SKIN IS NON INTACT. PT HAS R FOOT S/P DEBRIDEMENT. DRESSING CLEAN DRY AND INTACT. PER PRINTED CIRCUIT BOARDS PINNER RN, PODIATRY WILL CHANGE WOUND DRESSING. LEFT LOWER LEG AMPUTATION. CONTACT PRECAUTIONS IN PLACE FOR HX OF MRSA NARES. PT HAS MIDLINE BREONNA DOUBLE LUMEN, NO BLOOD DRAWS ALLOWED. PATENT AND INTACT. PT IS ON BEDREST BUT HAS WHEELCHAIR AT BEDSIDE. FALL RISK PROTOCOL IN PLACE. BED IN LOWEST POSITION. CALL LIGHT WITHIN REACH. DISCUSSED POC WITH PT AND PT VERBALIZED UNDERSTANDING. WILL ROUND FREQUENTLY ON PT.
--- NOTE | 2019-06-19 08:58 | NUR ---
Wound care consult not done. Pt. was seen and treated by Brady Sepulveda DPM on 06/18/19and will f/u in house.
[2019-06-19] MEDS: LISINOPRIL 5 MG TAB PO SCH (09:00)
[2019-06-19] MEDS: NICOTINE TRANSD SYS 14 MG/24 HR PATCH TD SCH (09:00)
[2019-06-19] MEDS: METOPROLOL 50 MG TAB PO SCH ×2 (09:00→14:21)
--- NOTE | 2019-06-19 09:24 | NUR ---
ADMINISTERED MORNING MEDS TO PT. PT TOLERATED THEM WELL. PER PARAMETERS, ZESTRIL AND LOPRESSOR WERE HELD. WILL NOTIFY MD. BED IN LOW POSITION, CALL LIGHT WITHIN REACH. PT DENIES PAIN OR SOB AT THIS TIME. WILL CONTINUE TO ROUND FREQUENTLY ON PT.
[2019-06-19] MEDS: RIVAROXABAN 10 MG TAB PO SCH (09:42)
[2019-06-19] MEDS: ASPIRIN 81 MG TAB.CHEW PO SCH (09:43)
[2019-06-19] MEDS: METHADONE 10 MG TAB PO SCH (09:43)
[2019-06-19] MEDS: LACTOBACILLUS RHAMNOSUS GG 1 EACH CAP PO SCH (09:43)
[2019-06-19] MEDS: FUROSEMIDE 20 MG/2 ML VIAL IVP SCH (09:44)
[2019-06-19] MEDS: FERROUS SULFATE 325 MG TABEC PO SCH (09:44)
[2019-06-19] MEDS: PIPERACILLIN/TAZOBACTAM 3.375 GM in DEXTROSE 5% 50 ML IV SCH ×3 (09:44→21:55)
[2019-06-19] MEDS: ASCORBIC ACID 500 MG TAB PO SCH (09:44)
[2019-06-19] MEDS: Z-GUARD PASTE TP SCH (09:45)
--- NOTE | 2019-06-19 10:02 | NUR ---
PER , LOPRESSOR TO BE ADMINISTERED FOR UNCONTROLLED A-FIB. WILL ADMINISTER TO PT.
[2019-06-19 10:10] LABS: RBC,URINE 0-5 /HPF (0-5); WBC,URINE 0-5 /HPF (0-5); YEAST,URINE Few /HPF (None Seen)
[2019-06-19 10:11] LABS: NITRITE, URINE NEGATIVE (NEGATIVE)
--- NOTE | 2019-06-19 10:20 | NUR ---
PT REFUSING LOPRESSOR AT THIS TIME. I EXPLAINED THE IMPORTANCE OF MED BUT PATIENT DOES JOT WANT IT AT THIS TIME. WILL RETRY LATER. ORDERED TO GIVE FOR UNCONTROLLED A FIB.
[2019-06-19 10:49] LABS: BARBITURATE, URINE NEG. ng/ml (NEG <=200); BENZODIAZEPINE, URINE NEG. ng/mL (NEG <=200); CANNABINOID, URINE NEG. ng/mL (NEG <=50); COCAINE, URINE NEG. ng/mL (NEG <=300); OPIATE, URINE POS. ng/mL (NEG <=2000); PHENCYCLIDINE SCREEN,URINE NEG. ng/mL (NEG <=25)
--- NOTE | 2019-06-19 11:03 | NUR ---
RESIDENT AWARE OF PT REFUSING LOPRESSOR. WILL WAIT FOR ADDITIONAL ORDERS.
--- NOTE | 2019-06-19 12:11 | NUR ---
DISCHARGE PLANNING Received CM order for a Cam boot. Contacted [facility] and was informed [employer] is the DME supplier for this member. [employer] was called however [employer] doesn't dispense cam boots. Called [facility] and was requested to submit a prior auth form for this pt for the boot. Form was faxed to . Sw will continue following up as needed. Stacy Hoyt, ACSW, Ext [phone]
[2019-06-19] MEDS: VANCOMYCIN 1,500 MG in DEXTROSE 5% 500 ML IV SCH (12:30)
[2019-06-19] MEDS ORDERED: METOPROLOL 5 MG/5 ML VIAL IV SCH (12:52)
[2019-06-19] MEDS ORDERED: SODIUM PHOS / POTASSIUM PHOS 1 PKT PDR PO SCH (12:53)
--- NOTE | 2019-06-19 13:04 | NUR ---
PT RESTING IN BED. NO COMPLAINTS OF PAIN OR SOB AT THIS TIME. PT HR JUMPING FROM 130'S TO 160'S. RESIDENT ASSIGNED IS AWARE. AWAITING ORDERS FOR PT.
--- NOTE | 2019-06-19 13:24 | NUR ---
SATURATION 88% ON ROOM AIR PATIENT SELF REMOVED SUPPLEMENTAL OXYGEN POST HHN THERAPY PLACED ON SUPPLEMENTAL OXYGENT AT 2 LPM VIA NC
[2019-06-19] MEDS ORDERED: METOCLOPRAMIDE 10 MG/2 ML INJ VIAL IVP PRN (14:00)
[2019-06-19] MEDS ORDERED: glipiZIDE ER 5 MG TABER PO SCH (14:00)
--- NOTE | 2019-06-19 14:03 | NUR ---
S.T. BEDSIDE SWALLOW EVAL COMPLETED Pt presents with adequate oropharyngeal swallow function across all textures. No overt s/s aspiration observed. Pt cleared throat during eval but verbally indicated that it was not due to aspiration. Recommend: 1) Continue P.O. diet but downgrade to mechanical soft chopped, thin liquids due to pt edentulous and not compliant with sitting fully upright for P.O. intake. 2) P.O. meds as tolerated. No further tx indicated at this time. DC to [facility]. Endorsed to [facility]. TIME [id number]
--- NOTE | 2019-06-19 14:09 | NUR ---
WOUND CARE EVALUATION NOTE: SKIN ASSESSMENT DONE , NO OPEN ACTIVE WOUND. -SACRALCOCCYX BLANCHABLE REDNESS, OPTIFOAM IN PLACE FOR PREVENTION -R/L INNER BUTTOCKS INCONTINENT ASSOCIATED DERMATITIS, SKIN REDNESS WITH SKIN INTACT -LEFT BKA STUMP HEALED SCARS -RIGHT LOWER LEG DRESSING CHANGED BY PODIATRY TODAY. DRESSING DRY CLEAN AND IN PLACE. RECOMMENDATION: -CONTINUE Z-GUARD TO R/L BUTTOCKS BID AND PRN IF SOILING -APPLY OPTIFOAM TO SACRALCOCCYX PREVENTION -TURN AND REPOSITION PATIENT Q 2H -ASSESS AND MONITOR SKIN CONDITION DURING POSITION CHANGE -OFFLOAD BILATERAL HEELS BY PLACING PILLOWS UNDER CALVES AT ALL TIMES, UNLESS OTHERWISE CONTRAINDICATED -PRESSURE REDISTRIBUTION BY PLACING PILLOWS AND OFFLOADING SACRALCOCCYX -KEEP SKIN CLEAN AND DRY AT ALL TIMES.
[2019-06-19] MEDS ORDERED: SENNA 8.6 MG TAB PO SCH (14:15)
[2019-06-19] MEDS ORDERED: AMIODARONE 150 MG in DEXTROSE 5% 100 ML IV SCH (15:00)
--- NOTE | 2019-06-19 15:30 | NUR ---
PT TRANSFERRED FROM TELEMETRY 125 B TO ICU. PT IS AFEBRILE, AAOX4, ABLE TO MAKE NEEDS KNOWN. SINUS TACHY ON MONITOR, HR IN 140'S. ON O2 AT 3 LPM/NC, CRACKLES HEARD BILATERAL LUNGS, NO SOB NOTED. MIDLINE DOUBLE LUMEN TO LEFT UPPER ARM IN PLACE. ABDOMEN SOFT, ROUND, NONTENDER, BOWEL SOUNDS PRESENT X 4 QUADRANTS. SKIN IS DRY AND WARM TO TOUCH. NON-BLANCHABLE REDNESS NOTED TO SACRAL AREA, OPTIFOAM DRESSING IN PLACE. DRESSING CLEAN DRY AND INTACT TO RIGHT LEG WOUNDS, LEFT LEG AMPUTATION NOTED.NO SIGNS OF DISTRESS NOTED. HOB 30 DEGREES, BED IN LOWEST POSITION LOCKED, CALL LIGHT WITHIN REACH. WILL CONTINUE TO MONITOR. Addendum: 06/19/19 at 1654 by Jurgen Tyler RN Leon. FIB ON MONITOR
--- NOTE | 2019-06-19 15:30 | NUR ---
PT TRANSFERRED TO ICU FOR HIGHER LEVEL OF CARE. PER RESIDENT, PT HR TOO UNSTABLE TO CONTINUE IN MED SURG/TELE. REPORT GIVEN TO [facility] ICU NURSE FOR CONTINUITY OF CARE. PT STABLE AND COOPERATIVE ASIDE FROM UNCONTROLLED A-FIB. ALL BELONGINGS INCLUDING WHEELCHAIR TAKEN WITH PT.
[2019-06-19] MEDS: AMIODARONE 450 MG in DEXTROSE 5% 250 ML IV SCH (16:09)
[2019-06-19] MEDS: ALBUTEROL SULFATE/IPRATROPIU 3 ML SOL IH PRN (16:47)
--- NOTE | 2019-06-19 17:30 | NUR ---
PT ABLE TO SIGN CONSENT FORM FOR CT CHEST ANGIO W/WO CONTRAST. PT IS NPO SINCE 16:30.
[2019-06-19] MEDS ORDERED: INSULIN LISPRO 100 UNITS/ML VIAL SUBQ SCH (18:00)
--- NOTE | 2019-06-19 18:00 | NUR ---
PT IS NPO SINCE [address] CHEST ANGIO W/WO CONTRAST, AND ONE TIME DOSE OF HUMALOG 10 UNITS HELD AT THIS TIME.
--- NOTE | 2019-06-19 19:26 | NUR ---
REPORT GIVEN TO TRAFFIC II MANAGER RN FOR CONTINUITY OF CARE. NO S/SX OF ACUTE DISTRESS NOTED AT THIS TIME.
--- NOTE | 2019-06-19 19:30 | NUR ---
RECEIVED BEDSIDE REPORT FROM MORNING SHIFT RN, CLEMENT. PT IS AWAKE, AAOX4. PERRL. ON 2L NASAL CANNULA, CRACKLES HEARD ON UPPER/LOWER BILATERAL LOBES. PT IS ON CARDIAC DIET, NPO AT THIS TIME DUE TO CT WITH CONTRAST AT 2029. BOWEL SOUNDS ACTIVE X4. PT IS CONTINENT HAS URINAL AT BEDSIDE. PT IS AFIB ON SUBSTANCE ABUSE THERAPIST. BP 155/60, RR 26, HR 138, TEMP 97.9. SATING 99%. PT HAS LEFT UA MIDLINE NS TKO AND AMIODARONE DRIP AT 33ML/HR. HOB ABOVE 30 DEG, LEFT BKA, AND CELLULITIS ON RLE COVERED WITH DRESSING, REMAINS DRY/INTACT. ON CONTACT PRECAUTIONS.
--- NOTE | 2019-06-19 19:40 | NUR ---
CALLED DR. HEATH INFORMED PT COMPLAINS OF 8/10 PAIN AT RLE FOR CELLULITIS AND PT NPO STATUS. TO PUT NEW ORDER FOR MORPHINE.
--- NOTE | 2019-06-19 19:46 | NUR ---
HHN TX NOT GIVEN. PT HR IS 145. RN AWARE AND AT BEDSIDE. WILL CONTINUE TO MONITOR.
[2019-06-19] MEDS: MORPHINE SULFATE 2 MG/ML SYR IVP PRN (20:11)
--- NOTE | 2019-06-19 20:22 | NUR ---
CALLED DR DE IN TO SIGN CONSENT FORM FOR CT CONTRAST, STATED OK TO HOLD PO MEDS AT THIS TIME
--- NOTE | 2019-06-19 20:36 | NUR ---
CALLED CT, SPOKE WITH MARGARITA, STATED PT HAS TO WAIT FOR CT SCAN AT THIS TIME THEY ARE BUSY WITH ER PATIENTS. WILL CALL BACK WITHIN HOUR.
[2019-06-19] MEDS: METOPROLOL 25 MG TAB PO SCH (21:00)
[2019-06-19] MEDS ORDERED: INSULIN LANTUS 100 UNITS/ML 10 ML VIAL SUBQ SCH (21:00)
[2019-06-19] MEDS ORDERED: MAGNESIUM CITRATE 300 ML BTL PO SCH (21:00)
[2019-06-19] MEDS: INSULIN LANTUS 100 UNITS/ML 10 ML VIAL SUBQ SCH (21:00)
--- NOTE | 2019-06-19 21:59 | NUR ---
CALLED SPOKE WITH DR. HEATH, INFORMED THAT WE HELD PO MEDS INCLUDING LOPRESSOR AT THIS TIME, PT REMAINS ON AMIODARONE DRIP, AND HR ELEVATED AT 129-133. DR. NUNES AT BEDSIDE TO SEE PATIENT.
[2019-06-19] MEDS ORDERED: FUROSEMIDE 20 MG/2 ML VIAL IVP SCH (22:30)
--- NOTE | 2019-06-19 22:59 | NUR ---
RE-CHECK BG SINCE PATIENT IS NPO AT THIS TIME FOR CT, PREVIOUS BG WAS 161. DID NOT ADMINISTER LANTUS INSULIN. INFORMED DR. NUNES STATED OK TO NOT GIVE TH LANTUS INSULIN, LOPRESSOR HELD, AND TO ADMINISTER REMAINING PO MEDS AFTER PT RETURNS FROM CT SCAN, WILL CARRY OUT. Addendum: 06/20/19 at 0113 by Ekaterina Solano RN BG THAT WAS REASSESSED AT THIS TIME WAS 93.
--- NOTE | 2019-06-19 23:10 | NUR ---
CALLED DR. NUNES, CONFIRMED TO GIVE THE CITROMA AFTER THE CT SCAN.
[2019-06-20] VITALS (99 sets, daily range): BP systolic 84–149; BP diastolic 35–100
--- NOTE | 2019-06-20 | NUR ---
TIME [address] SCAN GENESIS FROM RADIOLOGY ASSISTED GETTING PATIENT SET UP, INSERTED CONTRAST DYE INTO BREONNA MIDLINE AND CHECKED IV IS SECURE AND OKAY TO USED. PT RETURNED TO ICU AT 0000.
[2019-06-20] MEDS: POLYETHYLENE GLYCOL 17 GM/PKT PO SCH ×3 (00:11→20:41)
[2019-06-20] MEDS: ATORVASTATIN 20 MG TAB PO SCH ×2 (00:11→20:41)
[2019-06-20] MEDS: SENNA 8.6 MG TAB PO SCH ×3 (00:12→20:41)
[2019-06-20] MEDS: VANCOMYCIN 1,500 MG in DEXTROSE 5% 500 ML IV SCH ×3 (00:17→22:36)
[2019-06-20] MEDS: Z-GUARD PASTE TP SCH ×2 (00:18→13:22)
[2019-06-20] MEDS ORDERED: MAGNESIUM CITRATE 300 ML BTL ONE (00:34)
[2019-06-20] MEDS: AMIODARONE 450 MG in DEXTROSE 5% 250 ML IV SCH ×2 (02:46→19:03)
--- NOTE | 2019-06-20 02:51 | NUR ---
HR DECREASED TO 114-118, AMIODARONE DRIP REMAINS INFUSING AT 17CC/HR, PT EASY TO AROUSE. ON 2L N/C SATING AT 96%, RR 25. HOB ABOVE 30 DEG.
--- NOTE | 2019-06-20 04:20 | NUR ---
REPOSITIONED PATIENT IN BED, BED BATH PROVIDED TO PATIENT ASSIST X2, PT COMPLAINS OF DIFFICULTLY BREATHING AND PLACED NASAL CANNULA IN MOUTH. RT CALLED AT THIS TIME. ELEVATED HOB TO 45 DEG.
--- NOTE | 2019-06-20 04:30 | NUR ---
CALLED RT RAH AT BEDSIDE TO ASSESS PATIENT, RECOMMENDED TO INTUBATED PATIENT, CONTACT ER PHYSICIAN AND RESIDENT DOCS ON NEED FOR INTUBATION.
--- NOTE | 2019-06-20 04:55 | NUR ---
CALLED DR. NUNES ENDORSED THAT ACCORDING TO HOUSE SOUP NOT ENOUGH OF FENT/VERSED AVAILABLE AT THIS TIME WILL NEED TO CALL [facility] TO [facility]IX, DR NUNES TO UPDATE WITH NEW ORDERS FOR SEDATION.
[2019-06-20] MEDS ORDERED: SUCCINYLCHOLINE CHLORIDE 200 MG/10 ML VIAL IVP SCH (05:00)
[2019-06-20] MEDS ORDERED: ETOMIDATE 20 MG/10 ML VIAL IVP SCH (05:00)
--- NOTE | 2019-06-20 05:00 | NUR ---
CALLED [facility], SPOKE WITH JOSÉ MIGUEL, UPDATED ON IVP SEDATION NEEDS TO BE VERIFIED AT THIS TIME.
--- NOTE | 2019-06-20 05:01 | NUR ---
CALLED TO ICU FOR PT HAVING TROUBLE BREATHING. BAGGED PT WITH 100% FIO2. PT INTUBATED AT 0430 BY ER . MD NUNES AT BEDSIDE WELL. SETTINGS PER AC 14,500,+5 AND TITRATE FIO2 TOLERATED. PT INTUBATED WITH 7.5 ETT AT 23 CM AT LIP. ETT IS IN PLACE AND SECURED WITH ANCHOR-FAST. COLLECTED SPUTUM SAMPLE BUT LAB WONT ACCEPT IT BECAUSE ITS RED FLUID. WILL ENDORSE TO NEXT SHIFT TO RECOLLECT. VENT IS CONNECTED TO RED OUTLET.ALARMS AUDIBLE. AMBU BAG AT BEDSIDE. PT IS NOT ALERT. NO SOB OR DISTRESS. WILL CONTINUE TO MONITOR.
[2019-06-20] MEDS: MIDAZOLAM 2 MG/2 ML VIAL IV PRN ×2 (05:06→08:20)
--- NOTE | 2019-06-20 05:10 | NUR ---
GENESIS FROM RAD AT BEDSIDE TO COMPLETE CHEST XRAY FOLLOWING INTUBATION/NGT PLACEMENT.
--- NOTE | 2019-06-20 05:20 | NUR ---
CALLED JOSE RAMIREZ TO UPDATED ON PATIENT STATUS LEFT MESSAGE WITH CALL BACK NUMBER FOR ICU.
[2019-06-20] MEDS ORDERED: FUROSEMIDE 40 MG/4 ML VIAL IVP SCH (05:30)
--- NOTE | 2019-06-20 05:36 | NUR ---
RECEIVED CALL BACK FROM JOSE RAMIREZ, PROVIDED TELEPHONE CONSENT FOR RESTRAINTS AND UPDATED ON CURRENT PT STATUS. JOSE STATED SHE WILL MAKE A VISIT TO ICU TO SEE PATIENT.
[2019-06-20 06:07] LABS: HEPATITIS A ANTIBODY IGM Negative (Negative); HEPATITIS B CORE AB TOTAL Positive (Negative); HEPATITIS B SURFACE ANTIBODY Reactive (.); HEPATITIS B SURFACE ANTIGEN Negative (Negative)
[2019-06-20] MEDS: MORPHINE SULFATE 2 MG/ML SYR IVP PRN (06:13)
[2019-06-20] MEDS: ALBUTEROL SULFATE/IPRATROPIU 3 ML SOL IH SCH ×3 (06:34→19:18)
--- NOTE | 2019-06-20 06:35 | NUR ---
RECEIVED PT ON CARESCAPE ON DOCUMENTED SETTINGS, PTS ETT IS SECURE SIZE 7.5 AT 23 CM, ANCHOR FAST IN PLACE, PT IN HF QUIET HHN WITHHELD DUE TO ELEVATED HEART RATE, BMV HOB, VENT PLUGGED INTO RED OUTLET
--- NOTE | 2019-06-20 06:35 | NUR ---
INCREASE RR TO 18, VT TO 550
[2019-06-20] MEDS ORDERED: DEXT 5% / NACL 0.9% 500 ML IV SCH (06:50)
[2019-06-20] MEDS: BLOOD GLUCOSE MONITORING 1 DEV DEV FS SCH ×4 (06:59→21:32)
--- NOTE | 2019-06-20 07:01 | NUR ---
100ML D50 GIVEN TO PATIENT AT THIS TIME, DR OLIVEIRA AT BEDSIDE CHECKED BG=10 AMD 250ML CRANBERRY JUICE GIVEN VIA NGT.
[2019-06-20] MEDS ORDERED: DEXTROSE 50% 50 ML SYR IVP ONE (07:03)
--- NOTE | 2019-06-20 07:15 | NUR ---
RECEIVED BEDSIDE REPORT FROM EXERCISE SPECIALIST RNLESLIE. PT IS JUST INTUBATED. DROWSY. PERRL 2MM SLUGGISH. COARSE LUNG SOUNDS. AFIB ON MONITOR. BP AND O2 SAT STABLE. BOWEL SOUNDS ACTIVE X4. SIFUENTES IN PLACE, DRAINING CLEAR YELLOW URINE. PT HAS LEFT UA MIDLINE, AMIODARONE DRIP AT 17ML/HR. HOB ABOVE 40 DEG, LEFT BKA, AND CELLULITIS ON RLE COVERED WITH IDA BANDAGE, DRY AND INTACT. SACRAL REDNESS NOTED. ON CONTACT PRECAUTIONS FOR HX MRSA. SAFETY PRECAUTIONS IN PLACE. WILL CONTINUE TO MONITOR.
[2019-06-20] MEDS: PANTOPRAZOLE 40 MG TABEC PO SCH (07:33)
--- NOTE | 2019-06-20 07:50 | NUR ---
PT IS AWAKE, ABLE TO COMMUNICATE WITH WRITING. PT COMPLAINED BUTT SORE. REPOSITIONED PT. PT ASKING WHY HE IS BEING TIED. REORIENTED PT AND EXPLAINED TO PT THE PURPOSE OF THOSE TUBINGS AND MADE PT AGREE NOT TO PULL ANY TUBINGS. PT NODDED. REMOVED PT'S SOFT WRIST RESTRAINTS.
[2019-06-20] MEDS ORDERED: glipiZIDE ER 5 MG TABER PO SCH (08:00)
[2019-06-20] MEDS: fentaNYL 1 MG in NACL 0.9% 80 ML IV PRN (08:13)
--- NOTE | 2019-06-20 08:17 | NUR ---
JOSE RAMIREZ CALLED STATED SHE IS ON WAY TO ICU, ENDORSED TO RNCARMEL. PT SEDATED BUT AWAKE, NODDED IN UNDERSTANDING.
[2019-06-20] MEDS: MIDAZOLAM MDV 50 MG in NACL 0.9% 40 ML IV PRN (08:23)
--- NOTE | 2019-06-20 08:25 | NUR ---
STARTED VERSED AND FENTANYL DRIPS. RASS GOAL -3.
--- NOTE | 2019-06-20 08:40 | NUR ---
SIFUENTES CARE DONE, ORAL CARE DONE. REMOVED OPTIFOAM DRESSING ON THE SACRAL AREA, SMALL OPEN SKIN NOTED ON SACRAL-COCCYX. APPLIED Z GUARD AND REATTACHED OPTIFOAM. REPOSITIONED PT.
[2019-06-20] MEDS ORDERED: INSULIN LANTUS 100 UNITS/ML 10 ML VIAL SUBQ SCH (09:00)
[2019-06-20] MEDS: LISINOPRIL 5 MG TAB PO SCH (09:00)
[2019-06-20] MEDS: METOPROLOL 25 MG TAB PO SCH ×2 (09:00→21:00)
--- NOTE | 2019-06-20 09:40 | NUR ---
PT HAS NO FAMILY. PERSON TO NOTIFY IS PT'S FRIEND, JOSE. JOSE WERE CALLED, AGREES ON THE PROCEDURE. CENTRAL LINE CONSENT SIGNED BY PT'S FRIEND ANDREW THOMAS. DR DIAZ INSERTED CVC TO THE RIGHT IJ.
[2019-06-20] MEDS: METHADONE 10 MG TAB PO SCH (10:13)
[2019-06-20] MEDS: ASPIRIN 81 MG TAB.CHEW PO SCH (10:13)
[2019-06-20] MEDS: ASCORBIC ACID 500 MG TAB PO SCH (10:14)
[2019-06-20] MEDS: FAMOTIDINE 20 MG TAB PO SCH (10:14)
[2019-06-20] MEDS: LACTOBACILLUS RHAMNOSUS GG 1 EACH CAP PO SCH (10:15)
[2019-06-20] MEDS: RIVAROXABAN 10 MG TAB PO SCH (10:24)
--- NOTE | 2019-06-20 10:24 | NUR ---
Late Entry: DUSTIN called [facility] Libby [phone] regarding doctor's order for cam boot and SNF eval. Libby provided a list of contracted facilities: [facility] [phone] [facility] [phone] [facility] [phone] [facility] [phone] [facility] [phone] DUSTIN faxed clinical information to [facility], [facility], [facility], and [facility]. Libby stated that DME supplier is through [employer] [phone]. DUSTIN called [facility] and spoke to Mikaela. Per Mikaela, cam [facility] DUSTIN called [facility] to seek additional contracted DME providers. [facility] put SW on hold. DUSTIN consulted with [employer]er of Development Planner and Case Management Stacy who took over the call. Reference # for phone call: [id number]. DUSTIN/IGNACIO will follow up as needed.
[2019-06-20] MEDS: PIPERACILLIN/TAZOBACTAM 3.375 GM in DEXTROSE 5% 50 ML IV SCH ×3 (10:30→20:41)
--- NOTE | 2019-06-20 10:30 | NUR ---
STARTED G TUBE FEEDING AT 10ML/HR. WATER FLUSH 20ML Q8H
--- NOTE | 2019-06-20 10:35 | NUR ---
D/C D5 IVF.
[2019-06-20] MEDS: FUROSEMIDE 100 MG in DEXTROSE 5% 100 ML IV SCH (10:50)
--- NOTE | 2019-06-20 10:55 | NUR ---
WOUND CULTURE AND URINE CULTURE SENT TO LAB, DRESSING TO THE RLE WAS CHANGED BY MITCH NAVARRO.
[2019-06-20 11:03] LABS: BASOPHILS % (AUTO) 0.1 % (0.0-2.0); HEMATOCRIT 32.3 % (36-52); HEMOGLOBIN 9.9 g/dL (12.0-18.0); LYMPHOCYTES # (AUTO) 0.3 K/uL (2.0-11.5); LYMPHOCYTES % (AUTO) 2.2 % (20.5-51.1); MEAN CORPUSCULAR HEMOGLOBIN 25 pg (27-31); MEAN CORPUSCULAR HGB CONC 31 g/dL (33-37); MONOCYTES # (AUTO) 0.3 K/uL (0.8-1.0); MONOCYTES % (AUTO) 2.3 % (1.7-9.3); NEUTROPHILS # (AUTO) 11.5 K/uL (1.8-7.7); NEUTROPHILS % (AUTO) 95.4 % (42.2-75.2); PLATELET COUNT (AUTO) 171 K/uL (140-450); RED CELL DISTRIBUTION WIDTH 18.6 % (11.6-13.7); WHITE BLOOD COUNT (AUTO) 12.1 K/uL (4.8-10.8)
[2019-06-20 11:09] LABS: CARBON DIOXIDE 23.4 mmol/L (21-32); CREATININE 1.4 mg/dL (0.7-1.3); POTASSIUM 4.4 mmol/L (3.5-5.1)
[2019-06-20 11:13] LABS: MAGNESIUM 1.8 mg/dL (1.8-2.4); PHOSPHORUS 4.1 mg/dL (2.5-4.9)
[2019-06-20] MEDS: NICOTINE TRANSD SYS 14 MG/24 HR PATCH TD SCH (11:29)
[2019-06-20 12:04] LABS: BARBITURATE, URINE NEG. ng/ml (NEG <=200); BENZODIAZEPINE, URINE POS. ng/mL (NEG <=200); CANNABINOID, URINE NEG. ng/mL (NEG <=50); COCAINE, URINE NEG. ng/mL (NEG <=300); OPIATE, URINE POS. ng/mL (NEG <=2000); PHENCYCLIDINE SCREEN,URINE NEG. ng/mL (NEG <=25)
[2019-06-20 12:18] LABS: APPEARANCE,URINE HAZY (CLEAR); BILIRUBIN,URINE 1+ (NEGATIVE); BLOOD, URINE 3+ (NEGATIVE); COLOR,URINE YELLOW (YELLOW); LEUKOCYTE ESTERASE ,URINE NEGATIVE (NEGATIVE); NITRITE, URINE NEGATIVE (NEGATIVE); PH,URINE 5.5 (5.0-9.0); UGLUCOSE NEGATIVE (NEGATIVE)
[2019-06-20 12:35] LABS: RBC,URINE 50-80 /HPF (0-5); WBC,URINE 0-5 /HPF (0-5)
[2019-06-20 12:36] LABS: COARSE GRANULAR CASTS,URINE 0-10 /LPF (None Seen); FINE GRANULAR CASTS,URINE 0-10 /LPF (None Seen)
--- NOTE | 2019-06-20 13:09 | NUR ---
PT'S FRIEND, JOSE CAME, ASKING IF PT CAN MAKE IT OUT OF THIS. CALLED RESIDENT MD, WHO WILL BE TALKING TO THEM.
[2019-06-20] MEDS: INSULIN LISPRO SLIDING SCALE 100 UNITS/ML VIAL SUBQ PRN (13:19)
--- NOTE | 2019-06-20 13:20 | NUR ---
REMOVED OPTIFOAM DRESSING ON THE SACRAL, PIC TAKEN. REAPPLIED Z GUARD AND NEW OPTIFOAM.
--- NOTE | 2019-06-20 13:30 | NUR ---
G TUBE FEEDING RESIDUAL 10ML, INCREASED RATE TO 20ML/HR.
--- NOTE | 2019-06-20 13:34 | NUR ---
DR OAKES TALKED TO PT'S GIRL FRIEND JOSE.
[2019-06-20 15:16] LABS: FOLIC ACID 15.8 ng/mL (>3.0)
--- NOTE | 2019-06-20 16:00 | NUR ---
G TUBE RESIDUAL 10ML, INCREASE FEEDING TO 30ML/HR.
--- NOTE | 2019-06-20 16:07 | NUR ---
06/20/19 RD FOLLOW UP COMPLETED PLEASE REFER TO NUTRITION ASSESSMENT UNDER CARE ACTIVITY FOR ESTIMATED NUTRITIONAL NEEDS. 1.CONTINUE GLUCERNA 1.2 AT 70 ML/HR WITH FREE WATER FLUSH OF 160 ML Q6 H -THIS WILL PROVIDE 2,016 KCAL AND 120 GM PROTEIN WHICH MEETS 100% OF PATIENT�S RECOMMENDED NEEDS. 2. RD TO FOLLOW-UP 2-3 DAYS, HIGH RISK COLT RAI, RD
--- NOTE | 2019-06-20 19:28 | NUR ---
Received pt stable on vent support at documented settings, suctioned scant amount of thin clear secretions, gag present, hhn tx given, tolerated well, no resp distress or SOB noted at this time, 7.5 ETT secured at 23 cm at the lip, alarms set and audible, ambu bag at bedside, vent plugged into red outlet, cont pulse ox on, will cont to monitor.
--- NOTE | 2019-06-20 19:30 | NUR ---
RECEIVED BEDSIDE REPORT FROM MORNING NURSE. PATIENT SEDATED WITH VERSED AND FENTANYL DRIP, RASS -3 NOTED. ETT TO VENT WITH SETTING A/C MODE, 45% FIO2, VT 550, RATE 18, PEEP 5. BILATERAL LUNG SOUND RHONCHI. NGT TO LEFT NARES TO FEEDING WITH GLUCERNA 1.2 70ML/HR WITH WATER FLUSH 160ML Q4, TOLERATED WELL, RESIDUAL 10CC NOTED. RIGHT IJ WITH TRIPLE LUMENS AND MIDLINE TO LEFT UPPER ARM RUNNING WITH VERSED 2MG/HR, FENTANYL 47.5MCG/KG/HR, AMIODARONE 0.51MG/HR, AND LASIX 5MG/HR NOTED. A-FIB ON MONITOR. F/C IN PLACE WITH YELLOW CLEAR URINE DRAINING TO GRAVITY. ACTIVE BOWEL SOUND FROM ALL 4 QUADS. RIGHT LEG WITH DRESSING FOR CELLULITIS, LEFT BKA NOTED. CALL LIGHT WITHIN REACH. WILL CONTINUE TO MONITOR. Addendum: 06/20/19 at 2349 by Anil Sullivan RN FEEDING RATE 30ML/HR
--- NOTE | 2019-06-20 20:50 | NUR ---
AT BEDSIDE TO CHECK THE PATIENT.
--- NOTE | 2019-06-20 21:00 | NUR ---
HOLD LOPRESSOR PER PARAMETER BP 98/57 NOTED.
--- NOTE | 2019-06-20 21:15 | NUR ---
DR. HOWARD CALLED ON THE PHONE AND SHE ORDERED TO PUSH DOWN THE ETT TO 2 CM. AND DO CHEST X-RAY IN THE MORNING; RT RAZA NOTIFIED AND DID IT.
--- NOTE | 2019-06-20 21:21 | NUR ---
Advanced ETT 2 cm to 25 cm at the lip per CXR and Dr Franco, tolerated well, no resp distress or SOB noted at time of intervention. spo2 100%, CXR to follow, will cont to monitor.
--- NOTE | 2019-06-20 22:00 | NUR ---
TUBE FEEDING INCREASED TO 40ML/HR, RESIDUAL CHECKED 20CC NOTED. WILL CONTINUE TO MONITOR.
[2019-06-21] VITALS (104 sets, daily range): BP systolic 85–128; BP diastolic 48–89
--- NOTE | 2019-06-21 | NUR ---
NO ACUTE DISTRESS NOTED. FLACC 0 NOTED. TOLERATED WELL WITH VENT AND TUBE FEEDING. WILL CONTINUE TO MONITOR.
[2019-06-21] MEDS: Z-GUARD PASTE TP SCH ×2 (01:17→12:06)
[2019-06-21] MEDS: MIDAZOLAM MDV 50 MG in NACL 0.9% 40 ML IV PRN (01:44)
[2019-06-21] MEDS: fentaNYL 1 MG in NACL 0.9% 80 ML IV PRN ×2 (01:52→20:03)
--- NOTE | 2019-06-21 02:30 | NUR ---
PATIENT SEDATED WITH VERSED AND FENTANYL DRIP. TOLERATED WELL WITH TUBE FEEDING, 10CC RESIDUAL NOTED. NO ACUTE RESPIRATORY DISTRESS NOTED.
[2019-06-21] MEDS: FUROSEMIDE 100 MG in DEXTROSE 5% 100 ML IV SCH (04:19)
--- NOTE | 2019-06-21 05:00 | NUR ---
MORNING CARE GIVEN, PATIENT TOLERATED WELL. SEDATED WITH VERSED AND FENTANYL DRIP, RASS -3. NO ACUTE DISTRESS NOTED. FLACC 0. WILL CONTINUE TO MONITOR.
[2019-06-21] MEDS: ALBUTEROL SULFATE/IPRATROPIU 3 ML SOL IH SCH ×3 (06:35→19:00)
--- NOTE | 2019-06-21 06:35 | NUR ---
REC' D PT ON CARESCAPE VENT SETTINGS AC 18 VT 550 PEEP 5 FIO2 40% ALARMS ON AND AUDIBLE AND AMBU BAG AT SIDE OF VENT AND VENT IS PLUGGED INTO RED OUTLET, I\L TX GIVEN WITH DUONEB 3ML WITH NO ADVERSE REACTION POST TX B\S ARE CLEAR BILATERALLY SXN PT SMALL AMT OF CLEAR SECRETIONS, PT IS ORALLY INTUBATED WITH 7.5 ET TUBE SECURED WITH ANCHOR FAST AT 25CM MIDLINE AND SKIN INTEGRITY IS INTACT, PT RESTING WITH NO SIGNS OF DISTRESS NOTED AT THIS TIME.
[2019-06-21 06:38] LABS: ANION GAP 10.8 (8-16); CARBON DIOXIDE 27.7 mmol/L (21-32); CREATININE 1.1 mg/dL (0.7-1.3); POTASSIUM 3.5 mmol/L (3.5-5.1)
[2019-06-21 06:47] LABS: MAGNESIUM 1.6 mg/dL (1.8-2.4); PHOSPHORUS 2.1 mg/dL (2.5-4.9)
[2019-06-21] MEDS: PANTOPRAZOLE 40 MG TABEC PO SCH (06:56)
[2019-06-21] MEDS: BLOOD GLUCOSE MONITORING 1 DEV DEV FS SCH ×4 (07:01→21:49)
--- NOTE | 2019-06-21 07:30 | NUR ---
RECEIVED BEDSIDE REPORT FROM ROLLOUT MANAGER RN, PT SEDATED, RASS -3. VSS, FLACC 0, ETT TO VENT WITH FIO2 40, TV 550, R 18, PEEP 5, CLEAR LUNG SOUNDS COLLETTE. A-FIB ON SHELLFISH MANAGER, CAP REFILL <3 S, LARGE SOFT ABDOMEN WITH ACTIVE BOWEL SOUNDS, NGT TO LET NARES, PATENT, POSITIVE PLACEMENT, FEEDING WITH GLUCERNA1.2 AT 50ML/HR, 10ML RESIDUALS AT THIS TIME, SIFUENTES CATHETER IN PLACE, CLEAR YELLOW URINE VIA GRAVITY, SKIN IS WARM AND DRY TO TOUCH, OPEN WOUND PRESENT (SEE WOUND ASSESSMENT), LEFT BKA NOTED, CENTRAL LINE TO RIJ, TLC, PATENT, RUNNING VERSED AT 2MG/HR, FENTANYL AT 47.5 MCG/MIN, AND AMIODARONE AT 0.5 MG/HR, LEFT MIDLINE IN PLACE, PATENT RUNNING LASIX AT 5MG/HR. SEVERE WEAKNESS TO ALL EXTREMITIES, HOB ELEVATED TO 30 DEGREES, SAFETY MEASURE IN PLACE, ORAL CARE PROVIDED, POSITION CHANGED FOR OFF LOAD PRESSURE, WILL CONTINUE TO MONITOR.
[2019-06-21 07:34] LABS: BASOPHILS % (AUTO) 0.2 % (0.0-2.0); EOSINOPHILS % (AUTO) 0.4 % (0.0-4.0); HEMATOCRIT 31.9 % (36-52); HEMOGLOBIN 10.2 g/dL (12.0-18.0); LYMPHOCYTES # (AUTO) 0.9 K/uL (2.0-11.5); LYMPHOCYTES % (AUTO) 10.4 % (20.5-51.1); MEAN CORPUSCULAR HEMOGLOBIN 26 pg (27-31); MEAN CORPUSCULAR HGB CONC 32 g/dL (33-37); MEAN CORPUSCULAR VOLUME 81.3 fL (80-94); MONOCYTES # (AUTO) 0.3 K/uL (0.8-1.0); MONOCYTES % (AUTO) 3.6 % (1.7-9.3); NEUTROPHILS # (AUTO) 7.3 K/uL (1.8-7.7); NEUTROPHILS % (AUTO) 85.4 % (42.2-75.2); PLATELET COUNT (AUTO) 182 K/uL (140-450); RED BLOOD CELL COUNT(AUTO) 3.92 MIL/uL (4.20-6.10); RED CELL DISTRIBUTION WIDTH 19.3 % (11.6-13.7); WHITE BLOOD COUNT (AUTO) 8.5 K/uL (4.8-10.8)
[2019-06-21] MEDS ORDERED: DOBUTamine 500 MG/D5W PREMIX 250 ML IV SCH (08:20)
--- NOTE | 2019-06-21 08:49 | NUR ---
as per dr. garcia increase fio2 to 60%
[2019-06-21] MEDS: LISINOPRIL 5 MG TAB PO SCH (09:00)
[2019-06-21] MEDS: METOPROLOL 25 MG TAB PO SCH ×2 (09:00→21:26)
[2019-06-21] MEDS: METHADONE 10 MG TAB PO SCH (09:13)
[2019-06-21] MEDS: PIPERACILLIN/TAZOBACTAM 3.375 GM in DEXTROSE 5% 50 ML IV SCH ×3 (09:13→21:00)
[2019-06-21] MEDS: ASPIRIN 81 MG TAB.CHEW PO SCH (09:14)
[2019-06-21] MEDS: SENNA 8.6 MG TAB PO SCH ×2 (09:14→21:25)
[2019-06-21] MEDS: ASCORBIC ACID 500 MG/5 ML ORASYR PO SCH (09:14)
[2019-06-21] MEDS: RIVAROXABAN 10 MG TAB PO SCH (09:15)
[2019-06-21] MEDS ORDERED: MAG SULF 2000 MG/WATER PREMIX 100 ML IV SCH (09:15)
[2019-06-21] MEDS: LACTOBACILLUS RHAMNOSUS GG 1 EACH CAP PO SCH (09:16)
[2019-06-21] MEDS: FAMOTIDINE 20 MG TAB PO SCH (09:16)
[2019-06-21] MEDS: POLYETHYLENE GLYCOL 17 GM/PKT PO SCH ×2 (09:17→21:27)
--- NOTE | 2019-06-21 09:30 | NUR ---
SCHEDULED MEDICATION GIVEN VIA GT, PT TOLERATED WELL.
--- NOTE | 2019-06-21 10:00 | NUR ---
NO S/S OF DISTRESS, VSS, FLACC 0, POSITION CHANGED FOR OFF LOAD PRESSURE.
[2019-06-21] MEDS: NACL 0.9% 500 ML IV SCH (10:25)
[2019-06-21] MEDS: NICOTINE TRANSD SYS 14 MG/24 HR PATCH TD SCH (10:27)
[2019-06-21] MEDS: AMIODARONE 450 MG in DEXTROSE 5% 250 ML IV SCH (11:30)
--- NOTE | 2019-06-21 12:00 | NUR ---
NO CHANGE OF CONDITION AT THIS TIME, VSS, FLACC 0, ORAL CARE PROVIDED, POSITION CHANGED FOR OFF LOAD PRESSURE.
[2019-06-21] MEDS ORDERED: SODIUM PHOS / POTASSIUM PHOS 1 PKT PDR GT SCH (13:15)
[2019-06-21] MEDS ORDERED: SODIUM PHOS / POTASSIUM PHOS 1 PKT PDR PO SCH (13:15)
--- NOTE | 2019-06-21 13:54 | NUR ---
SKIN ASSESSMENT DONE WITH PRIMARY RN WITH CHANGE OF SKIN CONDITION NOTICE. PT. IS RESTLESS DURING ASSESSMENT. FRICTION TO SACRALCOCCYX AND BILATERAL ELBOWS WITH REDNESS. NOTIFIED TABATHA IN SKIN. -PRESSURE ULCER STAGE2 TO SACRALCOCCYX 1X1CM SUPERFICIAL DEPTH, WOUND BED 100% GRANULATING TISSUE, MOIST, NO ODOR,PERIWOUND SKIN INTACT WITH SURROUNDING REDNESS/PURPLE COLOR INDICATED FURTHER DAMAGE. -RIGHT /LEFT ELBOWS BLANCHABLE REDNESS, SKIN INTACT RECOMMENDATIONS: -CLEANSE SACRALCOCCYX WOUND WITH NS, PAT DRY, APPLY Z-GUARD AND COVER WITH OPTIFOAM QD AND PRN IF SOILING. -APPLY FOAM DRESSING TO RIGHT/LEFT ELBOWS PREVENTION. -CONTINUE TO TURN AND REPOSITION, KEEP SACRALCOCCYX AREA DRY AND CLEAN POSSIBLE.
--- NOTE | 2019-06-21 14:00 | NUR ---
WOUND CARE PROVIDED, PICTURE TAKEN, DRESSING CHANGED, PT TOLERATED WELL, VSS, FLACC 0, POSITION CHANGED FOR OFF LOAD PRESSURE.
--- NOTE | 2019-06-21 16:00 | NUR ---
VSS, FLACC 0, PM CARE AND ORAL CARE PROVIDED, SIFUENTES CATHETER CARE PROVIDED, POSITION CHANGED FOR OFF LOAD PRESSURE.
--- NOTE | 2019-06-21 16:05 | NUR ---
DR. DE LA ROSA CAME IN TO SEE PT AT BEDSIDE, UPDATED PT'S CONDITION, WILL FOLLOW UP WITH NEW ORDERS.
--- NOTE | 2019-06-21 17:05 | NUR ---
DR. HOWARD CAME IN TO SEE PT AT BEDSIDE, UPDATED PT'S CONDITION, RT AT BEDSIDE, WILL FOLLOW UP WITH NEW ORDERS.
[2019-06-21] MEDS: FUROSEMIDE 40 MG/4 ML VIAL IVP SCH (17:24)
--- NOTE | 2019-06-21 18:00 | NUR ---
NO S/S OF DISTRESS, VSS, FLACC 0, POSITION CHANGED FOR OFF LOAD PRESSURE.
--- NOTE | 2019-06-21 18:40 | NUR ---
VENT CK DONE. ABG DRAWN, PH 7.445, PCO2 40.7, PO2 74.4, HCO2 27.3, BE 3, , CALL DR CASTELLANO , BUT DR MENDOZA CALLED BACK AND HE TOLD ME THAT NO CHANGES IN PT VENT SETTINGS. HHNDUONEB HOLD DUE TO HR 125-133
--- NOTE | 2019-06-21 19:15 | NUR ---
RECEIVED REPORT FROM AM NURSE. PT AT BED EYES CLOSED. PT SEDATED, RASS -3, AFEBRILE, 97.3, PERRL 2MM, BREATHING REGULARLY, UNLABORED, ETT TO VENT, FIO2 70%, PC/AC, RR 18, PEEP 5, LUNG SOUNDS RALES ON RIGHT UPPER LOBE, CLEAR ON LEFT UPPER, MIDDLE, LOWER LOBES, HR A.FIB 130 WITH PVC, S1S2 PRESENT, CAP REFILL <3S, ABDOMEN, SOFT, ROUND, NONDISTENDED, NONTENDER,, NGT IN PLACE GLUCERNA RUNNING AT 70 ML/HR, 160 ML. Q4HR H20 WATER FLUSH, RIGHT IJ TRIPLE LUMEN, RUNNING NS 10 ML/HR, FENTANYL 47 MCG/KG/MIN, VERSED 2MG/MIN, SKIN NONINTACT, SACRAL WOUND, DRESSING IN PLACE, DRY, INTACT, RIGHT LOWER LEG WRAPPED WITH KERLIX DRESSING, DRY AND INTACT. SIFUENTES IN PLACE. DRAINING YELLOW, CLEAR, AROMATIC, URINE. Addendum: 06/22/19 at 0222 by Raheem Fraser RN CORRECTION: VERSED RUNNING AT 2MG/HR
--- NOTE | 2019-06-21 19:21 | NUR ---
REPORT GIVEN TO TEXTILE COLORIST FORMULATOR NURSE AT BEDSIDE FOR CONTINUE OF CARE, PT IS IN STABLE CONDITION AT THIS TIME.
[2019-06-21] MEDS: AMIODARONE 200 MG TAB PO SCH (21:25)
[2019-06-21] MEDS: ATORVASTATIN 20 MG TAB PO SCH (21:25)
--- NOTE | 2019-06-21 21:30 | NUR ---
DR. RITTER AT BEDSIDE. ORDERED ZOSYN TO BE CONTINUED INITIAL PLAN.
--- NOTE | 2019-06-21 21:45 | NUR ---
MEDICATIONS GIVEN. VAP ORAL CARE PERFORMED. PT TOELRATED WELL. WILL CONTINUE TO MONITOR.
[2019-06-21] MEDS: INSULIN LISPRO SLIDING SCALE 100 UNITS/ML VIAL SUBQ PRN (22:08)
[2019-06-22] VITALS (106 sets, daily range): BP systolic 83–140; BP diastolic 46–86
--- NOTE | 2019-06-22 01:25 | NUR ---
VAP ORAL CARE PERFORMED, SUCTIONED PT WITH THICK, WHITE, MUCOUS, PT TOLERATED PROCEDURE WELL.
[2019-06-22] MEDS: Z-GUARD PASTE TP SCH ×3 (01:48→13:00)
[2019-06-22] MEDS: PIPERACILLIN/TAZOBACTAM 3.375 GM in DEXTROSE 5% 50 ML IV SCH ×4 (02:39→20:37)
[2019-06-22] MEDS: MIDAZOLAM MDV 50 MG in NACL 0.9% 40 ML IV PRN (02:41)
--- NOTE | 2019-06-22 03:20 | NUR ---
PT AT BED EYES CLOSED, BREATHING REGULARLY, VS WNL, HOB 30 DEGREES, SIDERAILS UP X2, BED AT LOWEST POSITION, WILL CONTINUE TO MONITOR.
--- NOTE | 2019-06-22 05:28 | NUR ---
VAP ORAL CARE PERFORMED. SUCTIONED THICK, WHITE, MUCOUS, MODERATE AMOUNT. PT TOLERATED PROCEDURE WELL. RIGHT IJ DRESSING CHANGED.
[2019-06-22] MEDS: PANTOPRAZOLE 40 MG TABEC PO SCH (05:30)
[2019-06-22 06:11] LABS: ANION GAP 7.4 (8-16); CARBON DIOXIDE 33.8 mmol/L (21-32); CREATININE 0.8 mg/dL (0.7-1.3); POTASSIUM 3.2 mmol/L (3.5-5.1)
[2019-06-22 06:27] LABS: MAGNESIUM 1.7 mg/dL (1.8-2.4)
[2019-06-22 06:45] LABS: BASOPHILS % (AUTO) 0.2 % (0.0-2.0); EOSINOPHILS # (AUTO) 0.1 K/uL (0-0.4); EOSINOPHILS % (AUTO) 0.8 % (0.0-4.0); HEMOGLOBIN 10.4 g/dL (12.0-18.0); LYMPHOCYTES # (AUTO) 0.7 K/uL (2.0-11.5); MEAN CORPUSCULAR HEMOGLOBIN 26 pg (27-31); MEAN CORPUSCULAR HGB CONC 32 g/dL (33-37); MEAN CORPUSCULAR VOLUME 81.4 fL (80-94); MONOCYTES # (AUTO) 0.5 K/uL (0.8-1.0); MONOCYTES % (AUTO) 7.3 % (1.7-9.3); NEUTROPHILS # (AUTO) 5.5 K/uL (1.8-7.7); NEUTROPHILS % (AUTO) 80.7 % (42.2-75.2); PLATELET COUNT (AUTO) 188 K/uL (140-450); RED BLOOD CELL COUNT(AUTO) 4.05 MIL/uL (4.20-6.10); RED CELL DISTRIBUTION WIDTH 19.1 % (11.6-13.7); WHITE BLOOD COUNT (AUTO) 6.8 K/uL (4.8-10.8)
[2019-06-22] MEDS: BLOOD GLUCOSE MONITORING 1 DEV DEV FS SCH ×4 (06:48→20:36)
[2019-06-22] MEDS: INSULIN LISPRO SLIDING SCALE 100 UNITS/ML VIAL SUBQ PRN ×4 (06:53→20:35)
[2019-06-22] MEDS: ALBUTEROL SULFATE/IPRATROPIU 3 ML SOL IH SCH ×3 (06:57→19:39)
--- NOTE | 2019-06-22 07:20 | NUR ---
CHANGE OF SHIFT REPORT GIVEN TO AM NURSE.
--- NOTE | 2019-06-22 07:21 | NUR ---
RECEIVED BEDSIDE REPORT FROM GRASSLAND CONSERVATIONIST RN, PT SEDATED, RASS -3. VSS, FLACC 0, ETT TO VENT WITH PC SETTING FIO2 60, R 18, PEEP 5, CLEAR LUNG SOUNDS COLLETTE. A-FIB ON PAYROLL OFFICER, CAP REFILL <3 S, SOFT ABDOMEN WITH ACTIVE BOWEL SOUNDS, NGT TO LET NARES, PATENT, POSITIVE PLACEMENT, FEEDING WITH GLUCERNA1.2 AT 70ML/HR, 15 ML RESIDUALS AT THIS TIME, SIFUENTES CATHETER IN PLACE, CLEAR YELLOW URINE VIA GRAVITY, SKIN IS WARM AND DRY TO TOUCH, OPEN WOUND PRESENT (SEE WOUND ASSESSMENT), LEFT BKA NOTED, CENTRAL LINE TO RIJ, TLC, PATENT, RUNNING VERSED AT 2MG/HR, FENTANYL AT 47.5 MCG/MIN, LEFT MIDLINE IN PLACE, PATENT AND SL. SEVERE WEAKNESS TO ALL EXTREMITIES, HOB ELEVATED TO 30 DEGREES, SAFETY MEASURE IN PLACE, ORAL CARE PROVIDED, POSITION CHANGED FOR OFF LOAD PRESSURE, WILL CONTINUE TO MONITOR.
--- NOTE | 2019-06-22 07:22 | NUR ---
RECEIVING PT ON VENT WITH SETTING AT CHART, BREATH SOUND PRESENT BILAT CLEAR AND DIMINISHED ET TUBE SECURE SUCTION WITH MINIMUM OF WHITE SECRETION AMBU BAG BEDSIDE AND VENTILATOR PLUG IN THE RED OUTLET WILL CONTINUE TO MONITOR PT ON VENT
--- NOTE | 2019-06-22 07:42 | NUR ---
decreased fi02to .60 rn aware
--- NOTE | 2019-06-22 08:20 | NUR ---
PT RESTLESS, PULLED OUT NG TUBE AND ADMINISTRATIVE RESOURCES ASSOCIATE WIRES, TRYING TO REACH OUT THE ET TUBE, DR. HEATH MADE AWARE, ORDERED SOFT RESTRAIN, WILL PUT PT ON RESTRAIN AND CONTINUE TO MONITOR.
[2019-06-22] MEDS: LISINOPRIL 5 MG TAB PO SCH (09:00)
[2019-06-22] MEDS: METOPROLOL 25 MG TAB PO SCH ×2 (09:00→20:37)
[2019-06-22] MEDS: AMIODARONE 200 MG TAB PO SCH ×2 (09:27→20:34)
[2019-06-22] MEDS: METHADONE 10 MG TAB PO SCH (09:27)
[2019-06-22] MEDS: FUROSEMIDE 40 MG/4 ML VIAL IVP SCH ×2 (09:27→17:18)
[2019-06-22] MEDS: ASCORBIC ACID 500 MG/5 ML ORASYR PO SCH (09:28)
[2019-06-22] MEDS: LACTOBACILLUS RHAMNOSUS GG 1 EACH CAP PO SCH (09:28)
[2019-06-22] MEDS: POLYETHYLENE GLYCOL 17 GM/PKT PO SCH ×2 (09:28→20:32)
[2019-06-22] MEDS: FAMOTIDINE 20 MG TAB PO SCH (09:28)
[2019-06-22] MEDS ORDERED: POTASSIUM CHLORIDE 20% 40 MEQ/15 ML UDC GT SCH (09:30)
--- NOTE | 2019-06-22 09:30 | NUR ---
INSERTED OGT, SUCTION PROVIDED, PLACEMENT CHECKED BY TWO RNS AT BEDSIDE, SCHEDULED MEDICATION GIVEN, CONTINUE GT FEEDING AT THIS TIME, WILL CONTINUE TO MONITOR.
[2019-06-22] MEDS: RIVAROXABAN 10 MG TAB PO SCH (09:38)
[2019-06-22] MEDS: NICOTINE TRANSD SYS 14 MG/24 HR PATCH TD SCH (09:43)
[2019-06-22] MEDS: ASPIRIN 81 MG TAB.CHEW PO SCH (09:46)
[2019-06-22] MEDS: SENNA 8.6 MG TAB PO SCH ×2 (09:47→20:33)
--- NOTE | 2019-06-22 10:00 | NUR ---
NO S/S OF DISTRESS, VSS, FLACC 0, POSITION CHANGED FOR OFF LOAD PRESSURE.
[2019-06-22] MEDS: NACL 0.9% 500 ML IV SCH (10:21)
[2019-06-22] MEDS: VANCOMYCIN 1,000 MG in DEXTROSE 5% 250 ML IV SCH ×2 (11:35→23:15)
[2019-06-22] MEDS ORDERED: MAG SULF 2000 MG/WATER PREMIX 50 ML IV SCH (12:00)
--- NOTE | 2019-06-22 12:00 | NUR ---
NO S/S OF DISTRESS, VSS, FLACC 0, ORAL CARE PROVIDED, POSITION CHANGED FOR OFF LOAD PRESSURE.
--- NOTE | 2019-06-22 12:40 | NUR ---
DR. HOWARD CAME IN TO SEE PT AT BEDSIDE, UPDATED PT'S CONDITION, RT AND RESIDENT AT BEDSIDE, WILL FOLLOW UP WITH NEW ORDERS.
--- NOTE | 2019-06-22 14:00 | NUR ---
NO S/S OF DISTRESS, VSS, FLACC 0, POSITION CHANGED FOR OFF LOAD PRESSURE.
--- NOTE | 2019-06-22 16:00 | NUR ---
PM CARE AND ORAL CARE PROVIDED, F/C DONE, WOUND CARE PROVIDED, PT TOLERATED WELL, POSITION CHANGED FOR OFF LOAD PRESSURE.
--- NOTE | 2019-06-22 17:04 | NUR ---
CONTINUED TO MONITOR PT ON VENT WITH SETTINGS CHARTED BREATH SOUNDS PRESENT CLEAR SXN PT WITH MIN AMT OFF WHITE SECS ETT SECURE AMBU BAG AT BEDSIDE VENT PLUGGED INTO RED OUTLET
--- NOTE | 2019-06-22 18:00 | NUR ---
NO CHANGE OF CONDITION, VSS, FLACC 0, POSITION CHANGED FOR OFF LOAD PRESSURE.
[2019-06-22] MEDS: fentaNYL 1 MG in NACL 0.9% 80 ML IV PRN (18:23)
--- NOTE | 2019-06-22 19:10 | NUR ---
DR. ALFORD IN THE ROOM AT THIS TIME. WILL F/U IF ANY CHANGES MADE. PT STABLE AT THIS TIME. Addendum: 06/22/19 at 2121 by Heidy Helton RN DR. OAKES NOT DR. ALFORD
--- NOTE | 2019-06-22 19:13 | NUR ---
REPORT GIVEN TO FIREWALL SECURITY ENGINEER NURSE AT BEDSIDE FOR CONTINUE OF CARE, PT IS IN STABLE CONDITION AT THIS TIME.
--- NOTE | 2019-06-22 19:15 | NUR ---
REPORT GIVEN BY DAY NURSE AT BEDSIDE. RT CRUZ AND MD OAKES AT PATIENT BEDSIDE. PATIENT LYING IN BED WITH EYES CLOSED. MECHANICAL VENTILATOR SETTINGS AT FI02 40-PINSP 16-RR 12-PEEP 5 ON A/C PC. 25 AT LIP LINE. SEDATED WITH FENTANYL 47.5MCG/HR WITH A DRY WEIGHT OF 95 KG AND VERSED 2MG/HR WITH NS RUNNING AT 10ML/HR. PATIENT HAS OG LINE INTACT HEARD BY AUSCULTATION. NO RESIDUAL. GLUCERNA 1.2 70 CC/HR WITH A 160 CC FREE WATER Q4H RUNNING. PERRL BOTH EYES. PUPILS SYMMETRICAL. R IJ TRIPLE LUMEN DRESSING INTACT AND DRY. PATENT AND RUNNING ALL 3 MEDS. LUNCG SOUNDS BILATERAL AND SYMMETRICAL WITH RHONCHI HEARD. ALL 4 QUADRANTS ACTIVE BOWEL SOUNDS. SIFUENTES CATHETER INTACT WITH YELLOW URINE IN TUBING. NO BM AT THIS TIME. WOUND COVERED ON RIGHT LOWER EXTREMITY INTACT AND DRY. MIDLINE ON LEFT ARM ABOVE INNNER ELBOW. SIDE RAILS UP. HOB 30 DEGREES. SAFETY PRECAUTIONS IN PLACE. COLOR OF SKIN PINK AND DRY, WARM TO TOUCH. TEMPT 98.6. WILL CONTINUE TO MONITOR.
--- NOTE | 2019-06-22 19:52 | NUR ---
RT IN THE ROOM AT THIS TIME. PT STABLE AT THIS TIME.
--- NOTE | 2019-06-22 20:02 | NUR ---
CALLED RESIDENT DOCTORS, SPOKE WITH DR. OAKES. CLARIFIED WITH HIM THE PROTONIX AND SODIUM CHLORIDE ORDER. PER DR. OAKES CONTINUE PT ON NS AT 10ML/HR D/T HYPONATREMIA. PROTONIX ORDER TO BE CHANGED.
[2019-06-22] MEDS ORDERED: FAMOTIDINE 20 MG/2 ML VIAL IV SCH (20:10)
[2019-06-22] MEDS: ATORVASTATIN 20 MG TAB PO SCH (20:33)
--- NOTE | 2019-06-22 21:25 | NUR ---
DR. RITTER AT PATIENT BEDSIDE. UPDATED PATIENT STATUS. NO CHANGES AT THIS TIME.
--- NOTE | 2019-06-22 23:30 | NUR ---
RT IN ROOM TO CHECK PT ALARM. WILL F/U
[2019-06-23] VITALS (67 sets, daily range): BP systolic 85–130; BP diastolic 46–81
--- NOTE | 2019-06-23 01:00 | NUR ---
ZGUARD ORDERED. ZGUARD APPLIED DURING WOUND CARE CHECK. DRESSING DRY AND INTACT
[2019-06-23] MEDS: Z-GUARD PASTE TP SCH ×3 (01:20→14:45)
[2019-06-23] MEDS: PIPERACILLIN/TAZOBACTAM 3.375 GM in DEXTROSE 5% 50 ML IV SCH ×4 (02:38→20:36)
--- NOTE | 2019-06-23 04:00 | NUR ---
VAP ORAL CARE PERFORMED. PT SUCTIONED OF CREAMY COLORED SECRETIONS. TOLERATED WELL. VSS AT THIS TIME.
--- NOTE | 2019-06-23 04:00 | NUR ---
VAP ORAL CARE PERFORMED. CHECKED PT WOUNDS AGAIN AT THIS TIME, DRESSINGS INTACT AND DRY. NO BM AT THIS TIME. VSS. WILL CONTINUE TO MONITOR
[2019-06-23] MEDS: MIDAZOLAM MDV 50 MG in NACL 0.9% 40 ML IV PRN (05:23)
[2019-06-23 06:40] LABS: MAGNESIUM 1.6 mg/dL (1.8-2.4); PHOSPHORUS 2.3 mg/dL (2.5-4.9)
--- NOTE | 2019-06-23 06:45 | NUR ---
CHANGE OF SHIFT RT AT PT BEDSIDE.
[2019-06-23 06:49] LABS: ANION GAP 3.6 (8-16); CARBON DIOXIDE 37.8 mmol/L (21-32); CREATININE 0.8 mg/dL (0.7-1.3); POTASSIUM 3.4 mmol/L (3.5-5.1)
[2019-06-23 06:52] LABS: BASOPHILS % (AUTO) 0.2 % (0.0-2.0); EOSINOPHILS # (AUTO) 0.1 K/uL (0-0.4); HEMATOCRIT 32.1 % (36-52); HEMOGLOBIN 10.1 g/dL (12.0-18.0); MEAN CORPUSCULAR HEMOGLOBIN 26 pg (27-31); MEAN CORPUSCULAR HGB CONC 32 g/dL (33-37); MEAN CORPUSCULAR VOLUME 81.8 fL (80-94); MONOCYTES # (AUTO) 0.7 K/uL (0.8-1.0); MONOCYTES % (AUTO) 9.8 % (1.7-9.3); NEUTROPHILS # (AUTO) 5.1 K/uL (1.8-7.7); PLATELET COUNT (AUTO) 153 K/uL (140-450); RED BLOOD CELL COUNT(AUTO) 3.92 MIL/uL (4.20-6.10); RED CELL DISTRIBUTION WIDTH 19.6 % (11.6-13.7); WHITE BLOOD COUNT (AUTO) 6.9 K/uL (4.8-10.8)
[2019-06-23] MEDS: BLOOD GLUCOSE MONITORING 1 DEV DEV FS SCH ×4 (06:53→20:35)
[2019-06-23] MEDS: INSULIN LISPRO SLIDING SCALE 100 UNITS/ML VIAL SUBQ PRN ×4 (06:57→20:39)
[2019-06-23] MEDS: ALBUTEROL SULFATE/IPRATROPIU 3 ML SOL IH SCH ×3 (07:01→19:04)
--- NOTE | 2019-06-23 07:10 | NUR ---
RECEIVED BEDSIDE REPORT FROM MIGRATORY FARM HAND RNWENDY. PT IN BED WITH RASS -3, ETT TO VENT. VERSED AND FENTANYL WERE TURNED OFF FOR SEDATION VACATION AND WEAN OFF TRIAL. FIO2 32%, PEEP 5, RR12, 25 AT LIP LINE. OGT IN PLACE PLACEMENT CONFIRMED BY AUSCULTATION. RESIDUAL 10ML. RUNNING GLUCERNA 1.2, 70 ML/HR. WATER FLUSH 160 ML Q4H. PERRL EYES, 3MM. R IJ TRIPLE LUMEN DRESSING INTACT AND DRY, RUNNING 10ML NS. RIGHT UA MIDLINE FLUSHED, PATENT AND INTACT. LUNG SOUNDS CRACKLES. BOWEL SOUNDS ACTIVE. SIFUENTES CATHETER IN PLACE DRAINING CLEAR YELLOW URINE. RIGHT LOWER EXTREMITY DRESSING INTACT AND DRY. SIDE RAILS UP X2. HOB 30 [address]GREES. SAFETY PRECAUTIONS IN PLACE. WILL CONTINUE TO MONITOR.
--- NOTE | 2019-06-23 07:12 | NUR ---
RECIVED PT ON VENT WITH SETTINGS CHARTED BREATH SOUNDS PRESENT BILAT CLEAR BREATH SOUNDS PESENT BILAT WITH SOME HICK UP LIKE BREATHS DECREASED FI02 TO ,32 RN AWARE SXNPT WITH MIN AMT SECS PT ON SEDATION VACATION VENT PLUGGED INTO RED OUTLET WILL CONTINUE TO MONITOR PT ON VENT
[2019-06-23] MEDS: POLYETHYLENE GLYCOL 17 GM/PKT PO SCH ×2 (08:16→20:35)
[2019-06-23] MEDS: ASCORBIC ACID 500 MG/5 ML ORASYR PO SCH (08:16)
[2019-06-23] MEDS: LACTOBACILLUS RHAMNOSUS GG 1 EACH CAP PO SCH (08:18)
[2019-06-23] MEDS: NICOTINE TRANSD SYS 14 MG/24 HR PATCH TD SCH (08:18)
[2019-06-23] MEDS: METOPROLOL 25 MG TAB PO SCH ×2 (08:19→20:36)
[2019-06-23] MEDS: LISINOPRIL 5 MG TAB PO SCH (08:19)
[2019-06-23] MEDS: METHADONE 10 MG TAB PO SCH (08:19)
[2019-06-23] MEDS: FAMOTIDINE 20 MG TAB PO SCH ×2 (08:20→20:36)
[2019-06-23] MEDS: FUROSEMIDE 40 MG/4 ML VIAL IVP SCH ×2 (08:20→16:54)
[2019-06-23] MEDS: ASPIRIN 81 MG TAB.CHEW PO SCH (08:20)
[2019-06-23] MEDS: AMIODARONE 200 MG TAB PO SCH ×2 (08:20→20:35)
[2019-06-23] MEDS: RIVAROXABAN 10 MG TAB PO SCH (08:22)
[2019-06-23] MEDS ORDERED: POTASSIUM CHLORIDE 20% 40 MEQ/15 ML UDC GT SCH (09:00)
--- NOTE | 2019-06-23 09:00 | NUR ---
PT PLACED ON CPAP [address] ANITA JAUREGUI PT WITH MON AMT THICK YELLOW SECS BREATH SOUNDS PRESENT BILAT CLEAR DIMINISHED PT NOT AWAKE RACTS TO STIMULI SEEMS TO NOE CPAP OK AT THIS TIME AMBU BAG AT BEDSIDE VENT PLUGGED INTO RED OUTLET WILL CONTINUE TO MONITOR PT ON VENT
[2019-06-23] MEDS: SENNA 8.6 MG TAB PO SCH ×2 (09:13→20:35)
[2019-06-23] MEDS: VANCOMYCIN 1,000 MG in DEXTROSE 5% 250 ML IV SCH ×2 (11:34→23:08)
--- NOTE | 2019-06-23 12:30 | NUR ---
PT TRYING TO PULL TUBES OUT. REORIENTED PT. PT CALMED DOWN. AND ABLE TO FOLLOW SIMPLE COMMAND BY SQUEEZING HIS HAND. HOWEVER, PT IS NOT FULLY AWAKE, NO VERBAL RESPONSE.
--- NOTE | 2019-06-23 13:00 | NUR ---
CHANGED DRESSING ON THE RIGHT LE AND SACRAL, Z GUARD APPLIED TO PERINEAL AREA. ABD SKIN FOLD NEAR PERINEAL AREA HAS INCONTINENT DERMATITIS, PIC TAKEN, Z GUARD AND INTERDRY APPLIED.
--- NOTE | 2019-06-23 15:01 | NUR ---
06/23/19 RD FOLLOW UP COMPLETED PLEASE REFER TO NUTRITION ASSESSMENT UNDER CARE ACTIVITY FOR ESTIMATED NUTRITIONAL NEEDS. 1. CONTINUE GLUCERNA 1.2 AT 70 ML/HR WITH FREE WATER FLUSH OF 160 ML Q6 H -THIS WILL PROVIDE 2,016 KCAL AND 120 GM PROTEIN, WHICH MEETS 100% OF ESTIMATED KCAL NEEDS AND 84% OF ESTIMATED PROTEIN NEEDS. 2. RD TO FOLLOW-UP 2-3 DAYS, HIGH RISK COLT RAI RD
--- NOTE | 2019-06-23 15:55 | NUR ---
REPOSITIONED PT. PT GOT AGITATED AND TRYING TO PULL TUBES OUT. VENTILATOR WENT FROM CPAP MODE TO AC/VC MODE. CALLED RT CATALINO. CATALINO CAME AND CHANGED BACK TO CPAP.
--- NOTE | 2019-06-23 16:00 | NUR ---
REORIENTED PT, PT IS CALM AT THIS TIME.
[2019-06-23] MEDS: NACL 0.9% 500 ML IV SCH (16:18)
--- NOTE | 2019-06-23 18:15 | NUR ---
DR HOWARD CAME, PT FIGHTING VENT, TURNING HIS BODY LEFT AND RIGHT. DR HOWARD ORDER TO TURNING BACK VERSED AND FENTANYL.
--- NOTE | 2019-06-23 18:41 | NUR ---
CONTINUED TO MONITOR PT ON VENT PLACED BACK ON PC BY DR HOWARD BREATH SOUNDS PRESENT BILAT COARSE ETT SECURE AMBU BAG AT BEDSIDE SXN MOD AMT THICK YELLOW SECS VENT PLUGGED INTO RED OUTLET WILL PASS ON IN REPORT
--- NOTE | 2019-06-23 19:30 | NUR ---
RECEIVED REPORT FROM MORNING RN, CARMEL, FOR CONTINUITY OF CARE. VS STABLE AT THIS TIME. AFEBRILE. PERRL. FLACC 0. PT UNABLE TO MAKE NEEDS KNOWN. PT CURRENTLY SEDATED WITH VERSED AT 2MG/HR AND FENTANYL AT 47.5 MCG/HR. RASS -3. ETT TO VENT WITH SETTINGS A/C PC FIO2 35%, PRESSURE 16, RR12, AND PEEP 5. RESPIRATIONS ARE EVEN AND UNLABORED. CHEST RISE SYMMETRIC. CRACKLES HEARD ALL THROUGHOUT. OXYGEN SATURATION WNL. S1+S2 HEARD. PULSES ARE PALPABLE IN ALL EXTREMITIES. AFIB WITH PVCS ON MONITOR. ABDOMEN ROUND, SOFT AND NONDISTENDED. OGT IN PLACE. PLACEMENT CHECKED. NO RESIDUAL ASPIRATED AT THIS TIME. BS ACTIVE IN ALL QUADRANTS. PT HAS GLUCERNA RUNNING AT 70ML/HR AND WATER FLUSH 160ML Q4H. SIFUENTES CATHETER IN PLACE. CURRENTLY DRAINING CLEAR AND YELLOW URINE. NO BLADDER DISTENTION NOTED. NO BM AT THIS TIME. SKIN IS WARM AND DRY TO TOUCH. DRESSINGS ARE CLEAN, DRY AND INTACT. PT HAS LEFT UPPER ARM MIDLINE AND RIGHT IJ CENTRAL LINE. ALL DRESSINGS ARE CLEAN, DRY AND INTACT. PT CURRENTLY HAS NS AT 10ML/HR. HOB AT 30 DEGREES. ALL SAFETY PRECAUTIONS ARE IN PLACE. BED AT LOW POSSIBLE POSITION. ORAL CARE PROVIDED TO PT. CALL LIGHT WITHIN REACH AND WILL CONTINUE TO MONITOR PT.
[2019-06-23] MEDS ORDERED: MAG SULF 2000 MG/WATER PREMIX 50 ML IV SCH (19:40)
--- NOTE | 2019-06-23 20:20 | NUR ---
DR. RITTER AT BEDSIDE. GAVE HIM UPDATE REGARDING PT'S CONDITION. PER DR. RITTER KEEP THE SAME IV ABX FOR NOW. WILL CONTINUE TO MONITOR PT FOR S/S OF INFECTION.
[2019-06-23] MEDS: ATORVASTATIN 20 MG TAB PO SCH (20:35)
[2019-06-23] MEDS: fentaNYL 1 MG in NACL 0.9% 80 ML IV PRN (20:39)
--- NOTE | 2019-06-23 22:03 | NUR ---
NO CHANGE IN PT'S CONDITION AT THIS TIME. PT STILL HAS ADEQUATE URINE OUTPUT. RESPIRATIONS ARE EVEN AND UNLABORED. PT DOES NOT APPEAR TO BE EXPERIENCING ANY DISCOMFORT AT THIS TIME. FLACC 0. RASS -3. ALL SAFETY PRECAUTIONS REMAINS IN PLACE. WILL CONTINUE TO MONITOR PT.
--- NOTE | 2019-06-23 23:12 | NUR ---
VANCO TROUGH 10.5; 2300 VANCOMYCIN DOSE ADMINISTERED PER PARAMETER ON ORDER.
[2019-06-24] VITALS (73 sets, daily range): BP systolic 84–163; BP diastolic 24–96
--- NOTE | 2019-06-24 00:16 | NUR ---
VAP ORAL CARE PROVIDED TO PT. STILL SEDATED WITH VERSED AND FENTANYL WITH THE SAME RATE AT THE BEGINNING OF THE SHIFT. RASS -3. FLACC 0. RESPIRATIONS EVEN AND UNLABORED. NO SOB NOTED. NON-BEHAVIORAL RESTRAINTS STILL IN PLACE. PT TURNED AND REPOSITIONED. ALL SAFETY PRECAUTIONS ARE IN PLACE WILL CONTINUE TO MONITOR PT.
[2019-06-24] MEDS: Z-GUARD PASTE TP SCH ×3 (00:58→12:39)
--- NOTE | 2019-06-24 02:50 | NUR ---
VS STABLE AT THIS TIME. NO CHANGE IN PT'S CONDITION AT THIS TIME. AFIB WITH PVC ON MONITOR. OXYGEN SATURATION WNL. RESPIRATIONS ARE EVEN AND UNLABORED. ALL SAFETY PRECAUTIONS ARE IN PLACE.
[2019-06-24] MEDS: PIPERACILLIN/TAZOBACTAM 3.375 GM in DEXTROSE 5% 50 ML IV SCH ×4 (03:28→21:07)
--- NOTE | 2019-06-24 04:20 | NUR ---
MORNING CARE PROVIDED TO PT. TOLERATED BEING TURNED AND REPOSITIONED. VS REMAINS STABLE. REMAINS AFIB ON MONITOR. ALL SAFETY PRECAUTIONS ARE IN PLACE. WILL CONTINUE TO MONITOR PT
[2019-06-24 05:24] LABS: BASOPHILS % (AUTO) 0.4 % (0.0-2.0); EOSINOPHILS # (AUTO) 0.1 K/uL (0-0.4); HEMOGLOBIN 9.9 g/dL (12.0-18.0); LYMPHOCYTES # (AUTO) 1.1 K/uL (2.0-11.5); LYMPHOCYTES % (AUTO) 16.8 % (20.5-51.1); MEAN CORPUSCULAR HEMOGLOBIN 26 pg (27-31); MEAN CORPUSCULAR HGB CONC 32 g/dL (33-37); MEAN CORPUSCULAR VOLUME 82.2 fL (80-94); MONOCYTES # (AUTO) 0.6 K/uL (0.8-1.0); MONOCYTES % (AUTO) 9.5 % (1.7-9.3); NEUTROPHILS # (AUTO) 4.9 K/uL (1.8-7.7); NEUTROPHILS % (AUTO) 72.3 % (42.2-75.2); PLATELET COUNT (AUTO) 128 K/uL (140-450); RED BLOOD CELL COUNT(AUTO) 3.77 MIL/uL (4.20-6.10); RED CELL DISTRIBUTION WIDTH 20.2 % (11.6-13.7); WHITE BLOOD COUNT (AUTO) 6.7 K/uL (4.8-10.8)
[2019-06-24 05:38] LABS: ANION GAP 0.2 (8-16); CREATININE 0.7 mg/dL (0.7-1.3); POTASSIUM 3.3 mmol/L (3.5-5.1)
[2019-06-24 05:42] LABS: MAGNESIUM 1.6 mg/dL (1.8-2.4); PHOSPHORUS 2.8 mg/dL (2.5-4.9)
[2019-06-24 05:45] LABS: CARBON DIOXIDE 43.1 mmol/L (21-32)
--- NOTE | 2019-06-24 06:30 | NUR ---
DR. HEATH AT BEDSIDE TO SEE PT. UPDATED HIM REGARDING PT'S CONDITION.
[2019-06-24] MEDS: INSULIN LISPRO SLIDING SCALE 100 UNITS/ML VIAL SUBQ PRN ×3 (06:31→15:33)
[2019-06-24] MEDS: BLOOD GLUCOSE MONITORING 1 DEV DEV FS SCH ×4 (06:32→21:19)
[2019-06-24] MEDS: ALBUTEROL SULFATE/IPRATROPIU 3 ML SOL IH SCH ×3 (06:48→19:02)
--- NOTE | 2019-06-24 06:48 | NUR ---
RECEIVED PT ON CARESCAPE ON DOCUMENTED SETTINGS, ALARMS ARE ON AND FUNCTIONAL, PTS ETT IS SECURE, 23 CM ANCHOR FAST IN PLACE, PT IN HF ASLEEP , HHN GIVEN I\L WITH 3 MG DUONEB, BMV HOB, VENT PLUGGED INTO RED OUTLET
--- NOTE | 2019-06-24 08:00 | NUR ---
RECEIVED PATIENT ORALLY INTUBATED, 24CM LIP LEVEL, ON VENTILATOR PC MODE FIO2 35% PRESSURE 16 RATE 12 PEEP5, RECEIVED OFF SEDATIONS, PLAN TO CPAP TODAY, LOCALIZES TO PAIN, WITH OG TUBE AND FEEDING TURNED OFF
[2019-06-24] MEDS: ASCORBIC ACID 500 MG/5 ML ORASYR PO SCH (08:06)
[2019-06-24] MEDS: FUROSEMIDE 40 MG/4 ML VIAL IVP SCH ×3 (08:07→18:48)
[2019-06-24] MEDS: POLYETHYLENE GLYCOL 17 GM/PKT PO SCH ×2 (08:07→21:09)
[2019-06-24] MEDS: ASPIRIN 81 MG TAB.CHEW PO SCH (08:07)
[2019-06-24] MEDS: LISINOPRIL 5 MG TAB PO SCH (08:08)
[2019-06-24] MEDS: LACTOBACILLUS RHAMNOSUS GG 1 EACH CAP PO SCH (08:08)
[2019-06-24] MEDS: SENNA 8.6 MG TAB PO SCH ×2 (08:09→21:07)
[2019-06-24] MEDS: FAMOTIDINE 20 MG TAB PO SCH ×2 (08:09→21:08)
[2019-06-24] MEDS: AMIODARONE 200 MG TAB PO SCH ×2 (08:10→21:13)
[2019-06-24] MEDS: METOPROLOL 25 MG TAB PO SCH ×2 (08:10→21:08)
[2019-06-24] MEDS: METHADONE 10 MG TAB PO SCH (08:11)
--- NOTE | 2019-06-24 08:33 | NUR ---
PT PLACED ON CPAP 5 PS 8 ,PT APNEIC RETURED TO PC Addendum: 06/24/19 at 0851 by Sarah Cadena RT PLACED PT ON CPAP AGAIN HEART RATED INCREASED TO 144 RETURNED TO P\C
[2019-06-24] MEDS: RIVAROXABAN 10 MG TAB PO SCH (09:48)
[2019-06-24] MEDS: NICOTINE TRANSD SYS 14 MG/24 HR PATCH TD SCH (09:51)
[2019-06-24] MEDS ORDERED: POTASSIUM CHLORIDE 20% 40 MEQ/15 ML UDC GT SCH (11:00)
[2019-06-24] MEDS ORDERED: MAG SULF 2000 MG/WATER PREMIX 50 ML IV SCH (11:00)
[2019-06-24] MEDS: VANCOMYCIN 1,250 MG in DEXTROSE 5% 250 ML IV SCH ×2 (11:12→23:42)
[2019-06-24] MEDS: FOAM DRESSING TP SCH (12:38)
[2019-06-24] MEDS: fentaNYL 1 MG in NACL 0.9% 80 ML IV PRN ×2 (12:41→23:45)
[2019-06-24] MEDS: MIDAZOLAM MDV 50 MG in NACL 0.9% 40 ML IV PRN (15:29)
[2019-06-24] MEDS: NACL 0.9% 500 ML IV SCH (18:33)
--- NOTE | 2019-06-24 18:48 | NUR ---
DR. CASTRO AT BEDSIDE. INFORMED PHYSICIAN OF BLOOD PRESSURE TREND. PER PHYSICIAN "OK TO HOLD LASIX AFTERNOON DOSE"
--- NOTE | 2019-06-24 19:01 | NUR ---
REPORT GIVEN TO NIGHT RN
--- NOTE | 2019-06-24 19:05 | NUR ---
RECEIVED REPORT FROM DAYSHIFT NURSE AT PATIENT'S BEDSIDE. PATIENT STABLE FLACC 0. WILL FOLLOWUP FOR CONTINUITY OF CARE.
--- NOTE | 2019-06-24 19:25 | NUR ---
PT FOUND ON CHARTED SETTINGS. TX GIVEN INLINE W/O ADVERSE EFFECTS. AIRWAY PATENT AND SECURE. VENT PLUGGED INTO RED OUTLET. ALARMS ARE SET APPROPRIATELY AND AUDIBLE. PT IS RESTING COMFORTABLY AT THIS TIME. WILL MONITOR.
--- NOTE | 2019-06-24 19:35 | NUR ---
DR. HUDSONANY IN FOR UPDATES AND TO ASSESS PATIENT. NO NEW ORDERS AT THIS TIME.
--- NOTE | 2019-06-24 20:40 | NUR ---
DR. MANCIA IN TO ASSESS PATIENT, NO NEW ORDERS AT THIS TIME
[2019-06-24] MEDS: ATORVASTATIN 20 MG TAB PO SCH (21:08)
--- NOTE | 2019-06-24 22:35 | NUR ---
PATIENT REPOSITIONED, ASSESSED SKIN FOR BREAKDOWN AND RESTRAINTS TEMPORARILY REMOVED. PATIENT IS AROUSED WITH LIGHT TOUCH, ON FENTANYL AND VERSED DRIPS, NO CHANGE IN STATUS.
[2019-06-25] VITALS (18 sets, daily range): BP systolic 91–149; BP diastolic 44–97
--- NOTE | 2019-06-25 00:29 | NUR ---
VAP ORAL CARE PROVIDED, PATIENT WITHDRAWS TO LIGHT SUCTION. PATIENT TOLERATED FAIRLY. PATIENT REPOSITIONED AND RESTRAINTS REMOVED TO ASSESS CIRCULATION. NO SIGNS OF INJURY. WILL CONTINUE FREQUENT ROUNDS.
--- NOTE | 2019-06-25 02:40 | NUR ---
VSS. FLACC 0. PATIENT TURNED AND REPOSITIONED.VENT SETTING THE SAME START OF SHIFT. RESPIRATIONS UNLABORED, RESTRAINTS IN PLACE.
[2019-06-25] MEDS: Z-GUARD PASTE TP SCH ×3 (03:44→13:56)
[2019-06-25] MEDS: PIPERACILLIN/TAZOBACTAM 3.375 GM in DEXTROSE 5% 50 ML IV SCH ×4 (03:44→21:38)
--- NOTE | 2019-06-25 04:25 | NUR ---
ORAL CARE, SPONGE BATH, JAMIE CARE PROVIDED. PATIENT DID NOT TOLERATE WELL, INFUSION FOR SEDATION WAS OCCLUDED DUE TO POSITIONING.PATIENT REDIRECTED, READJUSTED LINES AND FLUSHED RIJ LINES, INFUSION GOING THROUGH NOW. LEFT UPPER ARM MIDLINE DRESSING CHANGED, AND DATED, DRY AND INTACT. SIFUENTES CATHETER SECUREMENT REPLACED. BLOOD NOTED IN SIFUENTES CATHETER. SUCTION CANISTER DISCARDED IN BIOHAZARD BIN AND REPLACED. PATIENT'S LEFT INDEX FINGERNAIL SLIGHTLY BLEEDING DUE TO HITTING ON SIDERAIL WHEN CHANGING POSITION. SIDERAILS SANITIZED, PATIENT SEDATED RASS -3, VITALS WITHIN NORMAL LIMITS.
[2019-06-25] MEDS: MIDAZOLAM MDV 50 MG in NACL 0.9% 40 ML IV PRN (05:22)
--- NOTE | 2019-06-25 05:38 | NUR ---
DR. HEATH IN TO ASSESS PATIENT AND RECEIVE UPDATES. PATIENT STABLE, RESTING WELL, EYES CLOSED, FLACC 0.
[2019-06-25] MEDS: ALBUTEROL SULFATE/IPRATROPIU 3 ML SOL IH SCH ×3 (06:21→19:28)
--- NOTE | 2019-06-25 06:21 | NUR ---
REC'D PT ON CARESCAPE VENT SETTINGS PC16 RR 12 ITME 0.95 PEEP 5 FIO2 28% ALARMS ON AND AUDIBLE AND AMBU BAG IS AT SIDE OF VENT AND VENT IS PLUGGED INTO RED OUTLET, I\L TX GIVEN WITH DUONEB 3ML WITH NO ADVERSE REACTION POST TX, B\S ARE CLEAR BILATERALLY, SXN PT SMALL AMT OF YELLOW SECRETIONS, PT IS ORALLY INTUBATED WITH 7.5 ET TUBE SECURED WITH ANCHOR FAST AT 23CM AND SKIN INTEGRITY IS INTACT PT IS RESTING
[2019-06-25 06:37] LABS: BASOPHILS % (AUTO) 0.3 % (0.0-2.0); EOSINOPHILS # (AUTO) 0.1 K/uL (0-0.4); EOSINOPHILS % (AUTO) 1.1 % (0.0-4.0); HEMATOCRIT 33.4 % (36-52); HEMOGLOBIN 10.4 g/dL (12.0-18.0); LYMPHOCYTES # (AUTO) 1.5 K/uL (2.0-11.5); MEAN CORPUSCULAR HEMOGLOBIN 26 pg (27-31); MEAN CORPUSCULAR HGB CONC 31 g/dL (33-37); MEAN CORPUSCULAR VOLUME 82.4 fL (80-94); MONOCYTES # (AUTO) 0.8 K/uL (0.8-1.0); MONOCYTES % (AUTO) 9.7 % (1.7-9.3); NEUTROPHILS # (AUTO) 5.8 K/uL (1.8-7.7); NEUTROPHILS % (AUTO) 70.9 % (42.2-75.2); PLATELET COUNT (AUTO) 152 K/uL (140-450); RED BLOOD CELL COUNT(AUTO) 4.06 MIL/uL (4.20-6.10); RED CELL DISTRIBUTION WIDTH 19.9 % (11.6-13.7); WHITE BLOOD COUNT (AUTO) 8.2 K/uL (4.8-10.8)
[2019-06-25 06:41] LABS: ANION GAP 4.3 (8-16); CARBON DIOXIDE 39.2 mmol/L (21-32); CREATININE 0.8 mg/dL (0.7-1.3); MAGNESIUM 2.1 mg/dL (1.8-2.4); PHOSPHORUS 3.8 mg/dL (2.5-4.9); POTASSIUM 3.5 mmol/L (3.5-5.1)
--- NOTE | 2019-06-25 07:20 | NUR ---
RECEIVED BEDSIDE CHANGE OF SHIFT REPORT FROM PM NURSE. PATIENT'S VITALS ARE STABLE AND IS SEDATED WTIH RASS -3 AND ON FENTANYL 95MCG/H AND VERSED 4MG/H. PERRLA PRESENT. PATIENT HAS RIJ CENTRAL TRIPLE LUMEN CENTRAL LINE WITH ALL LUMENS PATENT AND DRESSING/INSERTION SITE IS DRY AND INTACT. PATIENT ALSO HAS PATENT LEFT MIDLINE WITH DRESSING AND INSERTION SITE DRY AND INTACT IVF NORMAL SALINE RUNNING AT 10 ML/H. ETT SIZE 7.5 TO VENT WITH ETT 23CM AT TOOTH/GUM LINE. VENTILATOR MODE AC/PC; SETTINGS: FI02: 28%, INSPIRATORY PRESSURE: 16, RR: 12, AND PEEP OF 5. NSR ON TREATING PLANT OPERATOR. TACHYPNEIC RESPIRATIONS WITH CLEAR LUNG SOUNDS THROUGHOUT. SKIN WARM, DRY, AND INTACT EXCEPT FOR RIGHT LOWER LEG CELLULITIS AND DEEP TISSUE INJURY ON SACRUM. BILATERAL HAND 2+ PITTING EDEMA PRESENT. PATIENT HAS OG FEEDING TUBE RUNNING AT 70ML/H OF GLUCERNA FORMULA WITH WATER 160ML Q4H. OG TUBE PLACEMENT AND PATENCY CONFIRMED, WITH NO RESIDUALS. PATIENT HAS BILATERAL SOFT WRIST RESTRAINTS. SIFUENTES CATHETER IN PLACE, PATENT AND WITH DARK GLADYS URINE. BED LEFT IN LOW POSITION, HOB AT 30 DEGREES, AND CALL LIGHT WITHIN REACH. WILL CONTINUE TO MONITOR PATIENT.
[2019-06-25] MEDS: BLOOD GLUCOSE MONITORING 1 DEV DEV FS SCH ×4 (07:30→21:00)
--- NOTE | 2019-06-25 07:45 | NUR ---
PATIENT HAD 1 LARGE BROWN MUSHY BM. TUBE FEEDING OFF. PERINEAL ANAL CARE DONE. SOFT WRIST RESTRAINTS RE APPLIED AFTER ROUTINE RELEASE AND FOR ROUTINE ASSESSMENT. WILL CONTINUE TO DO NPO FOR CPAP TRIAL AND POSSIBLE EXTUBATION
--- NOTE | 2019-06-25 08:00 | NUR ---
VERSED AND FENTANYL OFF FOR SEDATION VACATION AND PLAN TO CPAP
--- NOTE | 2019-06-25 08:10 | NUR ---
PATIENT OPENS EYES TO LIGHT PAIN AND ABLE TO OBEY COMMANDS, NOD AND SHAKE HEAD FOR YES OR NO QUESTIONS. REORIENTED PATIENT AND INFORMED OF PLAN OF CARE FOR TODAY
--- NOTE | 2019-06-25 08:19 | NUR ---
NOTED PATIENT'S ETT TUBE OUT WITH VENTILATOR ALARM "PATIENT DISCONNECTED" SO2 98% AT THIS TIME, AMBUBAGGING DONE SO2 100%, RT MICHELLE INFOMED
--- NOTE | 2019-06-25 08:20 | NUR ---
called to icu 7 due to pt self extubated and placed on 100% nrb dr. singleton called and order abg to be done and ordered racepinphine 2.25% with 2 cc normal saline breathing tx. placed then placed on 60% cool areosol
[2019-06-25] MEDS ORDERED: RACEPINEPHRINE 2.25% 13.5 MG/0.5 ML NEBU INH SCH (08:45)
[2019-06-25] MEDS ORDERED: RACEPINEPHRINE 2.25% 13.5 MG/0.5 ML NEBU INH ONE (08:46)
--- NOTE | 2019-06-25 08:57 | NUR ---
PATIENT ON AEROSOL MASK 40% FIO2 PER RT MICHELLE, PATIENT'S SO2 100% AT THIS TIME, PATIENT OPENING EYES SPONTANEOUSLY AND OBEYING COMMANDS
[2019-06-25] MEDS: POLYETHYLENE GLYCOL 17 GM/PKT PO SCH ×2 (09:00→21:00)
[2019-06-25] MEDS: NICOTINE TRANSD SYS 14 MG/24 HR PATCH TD SCH (09:11)
[2019-06-25] MEDS: FUROSEMIDE 40 MG/4 ML VIAL IVP SCH ×2 (09:12→17:20)
[2019-06-25] MEDS: NACL 0.9% 500 ML IV SCH ×2 (10:20→15:42)
[2019-06-25] MEDS ORDERED: VANCOMYCIN PER PHARMACY MC PRN (10:40)
--- NOTE | 2019-06-25 11:09 | NUR ---
DECREASED FIO2 TO 40% CA
[2019-06-25] MEDS: VANCOMYCIN 1,250 MG in DEXTROSE 5% 250 ML IV SCH ×2 (11:25→23:45)
[2019-06-25] MEDS: RIVAROXABAN 10 MG TAB PO SCH (11:28)
[2019-06-25] MEDS: LISINOPRIL 5 MG TAB PO SCH (11:30)
[2019-06-25] MEDS: METHADONE 10 MG TAB PO SCH (11:30)
[2019-06-25] MEDS: SENNA 8.6 MG TAB PO SCH ×2 (11:30→21:00)
[2019-06-25] MEDS: ASCORBIC ACID 500 MG/5 ML ORASYR PO SCH (11:31)
[2019-06-25] MEDS: LACTOBACILLUS RHAMNOSUS GG 1 EACH CAP PO SCH (11:31)
[2019-06-25] MEDS: FAMOTIDINE 20 MG TAB PO SCH ×2 (11:31→21:39)
[2019-06-25] MEDS: ASPIRIN 81 MG TAB.CHEW PO SCH (11:31)
[2019-06-25] MEDS: METOPROLOL 25 MG TAB PO SCH ×2 (11:33→21:00)
[2019-06-25] MEDS: AMIODARONE 200 MG TAB PO SCH ×2 (11:33→21:39)
--- NOTE | 2019-06-25 12:39 | NUR ---
DECREASED FIO2 TO 30% AT 9L AND INFORMED RN BARRETT
--- NOTE | 2019-06-25 12:41 | NUR ---
INFORMED DR. HEATH THAT TUBE FEEDING STOPPED FOR NOW AND OG TUBE MEDICATIONS WERE GIVEN, METHADONE GIVEN GRADUALLY WHILE RE ASSESSING RESPIRATORY AND NEUROLOGICAL STATUS. "OK THAT'S FINE" PER DR. HEATH. MIRALAX NOT GIVEN PATIENT HAD 1 LARGE BM EARLIER. PATIENT CONTINUES TO BE SATURATING 100%, OPENS EYES TO LIGHT PAIN
--- NOTE | 2019-06-25 15:30 | NUR ---
Performed wound care on right lower extremity and sacrum. Cleaned and repositioned patient, took his temperature and gave medications.
[2019-06-25] MEDS: INSULIN LISPRO SLIDING SCALE 100 UNITS/ML VIAL SUBQ PRN (15:45)
[2019-06-25] MEDS ORDERED: HALOPERIDOL IM 5 MG/ML VIAL IM ONE (17:10)
[2019-06-25] MEDS: DEXT 5% / NACL 0.45% 1,000 ML IV SCH (18:38)
--- NOTE | 2019-06-25 19:10 | NUR ---
RECEIVED REPORT FROM AM NURSE. PT AT BED RESTLESS, AWAKE, LIFTING LEGS, PERRLA 3MM, BRISK, HEART RATE REGULAR SINUS RHYTHM ON MONITOR, S1S2 PRESENT, CAP REFILL <3S, TRACE EDEMA ON LEFT HAND, LUNG SOUNDS CRACKLES ON BILATERAL UPPER LOBES, DIMINISHED AT BASES, PT ON VENTURI MASK AT 30%, 4L/MIN, BREATHING REGULARLY, ABDOMEN SOFT ROUND, NONDISTENDED, NONTENDER, OG TUBE IN PLACE, SIFUENTES CATHETER IN PLACE, YELLOW, URINE, DRAINING. SKIN NON INTACT, SACROCOCCYX AREA DTI, WITH SKIN TEAR ON THE MIDDLE, OPTIFOAM DRESSING IN PLACE, SCATTERED RASHES ON TRUNK AND BILATERAL AXILLARY AREA, LEFT LEG BKA, RIGHT LEG DRESSING ON LOWER LEG EXTREMITIES, LEFT BOOT PROTECTOR IN PLACE. RIGHT IJ IN PLACE, SALINE LOCK, LEFT UPPER ARM, CENTRAL LINE, DOUBLE LUMEN, D5 1/2 NS, RUNNING AT 50 ML/HR, HOB AT 30 DEGREES, SIDE RAILS UP X2, CALL LIGHT WITHIN REACH. Addendum: 06/26/19 at 0258 by Raheem Fraser RN BILATERAL SOFT WRIST RESTRAINTS. IN PLACE
[2019-06-25] MEDS: LORazepam 2 MG/ML VIAL IM/IVP PRN (20:02)
[2019-06-25] MEDS: ATORVASTATIN 20 MG TAB PO SCH (21:39)
--- NOTE | 2019-06-25 22:40 | NUR ---
INFORMED PHARMACY OF [facility] TROUGH OF 15.6, RECEIVED INFORMATION THAT VANCOMYCIN IS OK TO GIVE.
[2019-06-26] VITALS (10 sets, daily range): BP systolic 90–146; BP diastolic 54–88
[2019-06-26] MEDS: Z-GUARD PASTE TP SCH ×3 (01:49→13:01)
--- NOTE | 2019-06-26 02:39 | NUR ---
PT AT BED RESTING, EYES CLOSED, BREATHING REGULARLY. HOB AT 30 DEGREES, SIDE RAILS UP X2, CALL LIGHT WITHIN REACH.
[2019-06-26] MEDS: PIPERACILLIN/TAZOBACTAM 3.375 GM in DEXTROSE 5% 50 ML IV SCH ×3 (03:09→23:43)
--- NOTE | 2019-06-26 04:15 | NUR ---
PT AT BED RESTING, EYES CLOSED, BREATHING REGULARLY. HOB AT 30 DEGREES, SIDE RAILS UP X2, CALL LIGHT WITHIN REACH.
[2019-06-26] MEDS: ALBUTEROL SULFATE/IPRATROPIU 3 ML SOL IH SCH ×3 (06:58→19:04)
[2019-06-26 07:10] LABS: BASOPHILS % (AUTO) 0.3 % (0.0-2.0); EOSINOPHILS % (AUTO) 0.7 % (0.0-4.0); HEMATOCRIT 29.2 % (36-52); HEMOGLOBIN 9.2 g/dL (12.0-18.0); LYMPHOCYTES # (AUTO) 0.9 K/uL (2.0-11.5); LYMPHOCYTES % (AUTO) 12.9 % (20.5-51.1); MEAN CORPUSCULAR HEMOGLOBIN 26 pg (27-31); MEAN CORPUSCULAR HGB CONC 31 g/dL (33-37); MEAN CORPUSCULAR VOLUME 82.2 fL (80-94); MONOCYTES # (AUTO) 0.7 K/uL (0.8-1.0); MONOCYTES % (AUTO) 9.8 % (1.7-9.3); NEUTROPHILS # (AUTO) 5.5 K/uL (1.8-7.7); NEUTROPHILS % (AUTO) 76.3 % (42.2-75.2); PLATELET COUNT (AUTO) 115 K/uL (140-450); RED BLOOD CELL COUNT(AUTO) 3.56 MIL/uL (4.20-6.10); RED CELL DISTRIBUTION WIDTH 19.7 % (11.6-13.7); WHITE BLOOD COUNT (AUTO) 7.1 K/uL (4.8-10.8)
[2019-06-26 07:15] LABS: ANION GAP 3.9 (8-16); CREATININE 0.7 mg/dL (0.7-1.3); POTASSIUM 3.1 mmol/L (3.5-5.1)
[2019-06-26 07:18] LABS: MAGNESIUM 1.7 mg/dL (1.8-2.4); PHOSPHORUS 3.4 mg/dL (2.5-4.9)
--- NOTE | 2019-06-26 07:29 | NUR ---
RECEIVED BEDSIDE REPORT FROM ASSISTANT CREDIT MANAGER RN,MAHOGANY, FOR CONTINUITY OF CARE. PATIENT IS AAOX2, ABLE TO MAKE NEEDS KNOWN, FOLLOWS SOME COMMANDS, RESTLESS AT THIS TIME, SOFT WRISTS RESTRAINTS ASSESSED AND ENFORCED, NO SIGNS OF INJURY NOTED. PATIENT SKIN IS WARM, DRY, NOT INTACT, HE HAS A PRESSURE INJURY TO SACROCOCCYX, DRESSING AND ZGUARD APPLIED. PATIENT IS ON AEROSOL MASK AT 28%, 6LPM. PATIENT IS SR ON MONITOR. SAFETY ALARMS AND PRECAUTIONS ASSESSED AND ENFORCED. WILL CONTINUE TO MONITOR.
--- NOTE | 2019-06-26 07:30 | NUR ---
CHANGE OF SHIFT REPORT GIVEN TO AM NURSE.
[2019-06-26 07:32] LABS: CARBON DIOXIDE 41.2 mmol/L (21-32)
[2019-06-26] MEDS: BLOOD GLUCOSE MONITORING 1 DEV DEV FS SCH ×4 (07:44→21:16)
[2019-06-26] MEDS: ASCORBIC ACID 500 MG/5 ML ORASYR PO SCH (08:12)
[2019-06-26] MEDS: POLYETHYLENE GLYCOL 17 GM/PKT PO SCH ×2 (08:12→21:02)
[2019-06-26] MEDS: METHADONE 10 MG TAB PO SCH (08:14)
[2019-06-26] MEDS: FUROSEMIDE 40 MG/4 ML VIAL IVP SCH ×2 (08:17→16:02)
[2019-06-26] MEDS: LACTOBACILLUS RHAMNOSUS GG 1 EACH CAP PO SCH (08:17)
[2019-06-26] MEDS: METOPROLOL 25 MG TAB PO SCH ×2 (08:18→20:52)
[2019-06-26] MEDS: AMIODARONE 200 MG TAB PO SCH ×2 (08:18→20:53)
[2019-06-26] MEDS: ASPIRIN 81 MG TAB.CHEW PO SCH (08:18)
[2019-06-26] MEDS: FAMOTIDINE 20 MG TAB PO SCH ×2 (08:18→20:54)
[2019-06-26] MEDS: LISINOPRIL 5 MG TAB PO SCH (08:19)
[2019-06-26] MEDS: NICOTINE TRANSD SYS 14 MG/24 HR PATCH TD SCH (08:30)
[2019-06-26] MEDS ORDERED: MAG SULF 2000 MG/WATER PREMIX 50 ML IV SCH (08:30)
--- NOTE | 2019-06-26 08:33 | NUR ---
DR. COOPER AND RESIDENTS AT BEDSIDE.
[2019-06-26] MEDS: SENNA 8.6 MG TAB PO SCH ×2 (08:45→20:54)
--- NOTE | 2019-06-26 09:04 | NUR ---
PATIENT'S FRIENDS ARE HERE AT BEDSIDE.
[2019-06-26] MEDS: RIVAROXABAN 10 MG TAB PO SCH (09:51)
[2019-06-26] MEDS: VANCOMYCIN 1,250 MG in DEXTROSE 5% 250 ML IV SCH ×2 (11:31→23:04)
[2019-06-26] MEDS: KETOROLAC 15 MG/ML VIAL IVP PRN ×2 (11:56→18:03)
[2019-06-26] MEDS ORDERED: POTASSIUM CHLORIDE 40 MEQ, LIDOCAINE MPF 1% - 5 mL VIAL 25 MG in NACL 0.9% 250 ML IV SCH (12:00)
--- NOTE | 2019-06-26 12:12 | NUR ---
SPEECH THERAPIST AT BEDSIDE FOR SWALLOW EVAL.
[2019-06-26] MEDS: LORazepam 2 MG/ML VIAL IM/IVP PRN ×3 (12:54→20:47)
--- NOTE | 2019-06-26 12:57 | NUR ---
S.T. BEDSIDE SWALLOW EVAL COMPLETED See report for details. Pt presents w/ moderate-severe oropharyngeal dysphagia c/b poor oral bolus management, delayed pharyngeal swallow initiation and wet vocal quality after swallows of thin and nectar thick liquids. Pt is at risk for aspiration. Recommend: 1) Advance to pureed diet, honey thick liquids only. No straws. 2) P.O. meds crushed and mixed w/ puree 3) Defer to MD for dietary restrictions. 4) 1:1 feeder w/ aspiration precautions. 5) Advance diet slowly/conservatively per pt tolerance. DC to nsg care at this time. Endorsed to MITCH Castillo. Time [id number]
[2019-06-26] MEDS: DEXT 5% / NACL 0.45% 1,000 ML IV SCH (13:01)
--- NOTE | 2019-06-26 13:49 | NUR ---
DR. MENDOZA IN TO SEE PATIENT, UPDATED ON PATIENT'S CONDITION. WILL FOLLOW UP ON ANY ORDERS
--- NOTE | 2019-06-26 14:21 | NUR ---
PICC LINE D/C, PATIENT TOLERATED WELL
--- NOTE | 2019-06-26 15:53 | NUR ---
PATIENT IS RESTLESS, REORIENTED PATIENT, RELEASED RESTRAINTS FOR 15 MINS BUT PATIENT CONTINUES TO PULL ON PICC LINE AND SIFUENTES CATHETER, EDUCATED ON PREVENTING INJURY BUT PATIENT IS NOT COOPERATIVE. RESTRAINTS BACK IN PLACE, NO INJURY NOTED.
--- NOTE | 2019-06-26 16:24 | NUR ---
06/26/19 RD FOLLOW UP COMPLETED PLEASE REFER TO NUTRITION ASSESSMENT UNDER CARE ACTIVITY FOR ESTIMATED NUTRITIONAL NEEDS. 1. CONTINUE PUREE DIET WITH HONEY THICK LIQUIDS TOLERATED 2. RD TO FOLLOW-UP 2-3 DAYS, HIGH RISK COLT RAI RD
--- NOTE | 2019-06-26 18:21 | NUR ---
PATIENT PULLED OUT RIJ CENTRAL LINE, DR. OAKES IS AWARE. STARTED PERIPHERAL IV TO LEFT HAND 22 GAUGE. PATIENT TOLERATED WELL. PER DR. OAKES, RECEIVED ORDER FOR HALDOL 2MG IM ONE TIME DOSE.
--- NOTE | 2019-06-26 18:51 | NUR ---
HALDOL 2MG IM ADMINISTERED, PATIENT TOLERATED WELL. SIFUENTES CATHETER D/C, PATIENT TOLERATED WELL.
[2019-06-26] MEDS ORDERED: HALOPERIDOL IM 5 MG/ML VIAL IM SCH (19:00)
--- NOTE | 2019-06-26 19:22 | NUR ---
ENDORSED CONTINUITY OF CARE TO AUTHORIZER [facility] RN. PATIENT TRANSFERRED TO [facility] VIA RNEY.
--- NOTE | 2019-06-26 19:25 | NUR ---
RECEIVED PT CONFUSED TRYING TO GET OUT OF BED ON TELEMETRY ST, RT LE MULTIPLES WOUND AND DRESSING, , AND LEFT BKA SACROCOCCYGEAL DRESSING DRY AND INTACT PT ORIENTED TO THE FLOOR CALL LIGHT WITHIN REACH MEDIC WILL BE GIVEN ORDER
[2019-06-26] MEDS ORDERED: HALOPERIDOL IM 5 MG/ML VIAL IM ONE (20:50)
[2019-06-26] MEDS: ATORVASTATIN 20 MG TAB PO SCH (20:55)
[2019-06-26] MEDS: INSULIN LISPRO SLIDING SCALE 100 UNITS/ML VIAL SUBQ PRN (21:17)
--- NOTE | 2019-06-26 21:30 | NUR ---
PT CONFUSED VERY AGITATED MEDIC GIVEN ORDER AND MILIEU THERAPIST AT BED SIDE EVEN PTON BILATERAL SOFT WRIST RESTERAINT, ON TELMETRY SR
[2019-06-26] MEDS ORDERED: PIPERACILLIN/TAZOBACTAM 3.375 GM VIAL IV ONE (23:52)
--- NOTE | 2019-06-27 | NUR ---
PT RESTING AFTER MEDIC GIVEN SLEEPING PEARL RESTORER AT BED SIDE ALL TIME AND PT ON BILATERAL SOFT WRIST RESTRAIN,
[2019-06-27] MEDS: Z-GUARD PASTE TP SCH ×3 (01:00→13:56)
[2019-06-27] MEDS: LORazepam 2 MG/ML VIAL IM/IVP PRN ×4 (02:41→23:45)
--- NOTE | 2019-06-27 03:00 | NUR ---
PT IS REPOSITIONED Q2H CONFUSED, WITH PERIODOS OF AGITATION ON TELMETRY SR
--- NOTE | 2019-06-27 05:00 | NUR ---
SPONGE BATH GIVEN LINEN CHANGED REPOSITIONED Q 2H IV ONLEFT HAND INFUSING WELL ON TELMETRY SR AND ST DEPRESSION
[2019-06-27] MEDS: PIPERACILLIN/TAZOBACTAM 3.375 GM in DEXTROSE 5% 50 ML IV SCH ×3 (06:23→17:28)
[2019-06-27] MEDS ORDERED: PIPERACILLIN/TAZOBACTAM 3.375 GM VIAL IV ONE (06:29)
[2019-06-27] MEDS: ALBUTEROL SULFATE/IPRATROPIU 3 ML SOL IH SCH ×3 (06:35→19:50)
[2019-06-27] MEDS: BLOOD GLUCOSE MONITORING 1 DEV DEV FS SCH ×4 (06:40→20:25)
--- NOTE | 2019-06-27 07:01 | NUR ---
PT WILL BE ENDODRSED TO DAY SHIFT NURSE FOR CONTINUE OF CARE
--- NOTE | 2019-06-27 07:02 | NUR ---
RECEIVED REPORT FROM COTTON STOMPER NURSE. PATIENT LYING DOWN IN BED TRYING TO GET OUT. AAOX1, ANXIOUS, SKIN COLOR APPROPRIATE TO ETHNICITY, WARM TO TOUCH. HAS RLE OPEN CELLULITIS, DRESSING DRY AND INTACT. IV SITE INTACT, PATENT, AND INFUSING IVF PER MD ORDERS. RESPIRATIONS EVEN, UNLABORED, ON ROOM AIR REVIEWED PLAN OF CARE WITH PATIENT. UNABLE TO COMPREHEND. SAFETY MEASURES IN PLACE, CALL LIGHT WITHIN REACH. WILL CONTINUE TO MONITOR.
[2019-06-27 07:39] LABS: CREATININE 0.9 mg/dL (0.7-1.3)
[2019-06-27 07:50] LABS: ANION GAP 8.5 (8-16); POTASSIUM 3.5 mmol/L (3.5-5.1)
[2019-06-27 07:54] LABS: PHOSPHORUS 3.1 mg/dL (2.5-4.9)
[2019-06-27 08:00] VITALS: BP 130/85
--- NOTE | 2019-06-27 08:06 | NUR ---
PATIENT LYING DOWN ANXIOUS, TRYING TO GET UP AND PULL ON IV LINES. ATIVAN GIVEN AT THIS TIME PER MD ORDERS. WILL CONTINUE TO MONITOR.
[2019-06-27 08:09] LABS: BASOPHILS % (AUTO) 0.4 % (0.0-2.0); EOSINOPHILS # (AUTO) 0.1 K/uL (0-0.4); EOSINOPHILS % (AUTO) 1.2 % (0.0-4.0); HEMATOCRIT 33.2 % (36-52); HEMOGLOBIN 10.4 g/dL (12.0-18.0); LYMPHOCYTES % (AUTO) 12.8 % (20.5-51.1); MEAN CORPUSCULAR HEMOGLOBIN 26 pg (27-31); MEAN CORPUSCULAR HGB CONC 31 g/dL (33-37); MEAN CORPUSCULAR VOLUME 82.2 fL (80-94); MONOCYTES % (AUTO) 12.9 % (1.7-9.3); NEUTROPHILS # (AUTO) 5.8 K/uL (1.8-7.7); NEUTROPHILS % (AUTO) 72.7 % (42.2-75.2); PLATELET COUNT (AUTO) 127 K/uL (140-450); RED BLOOD CELL COUNT(AUTO) 4.04 MIL/uL (4.20-6.10); RED CELL DISTRIBUTION WIDTH 19.9 % (11.6-13.7); WHITE BLOOD COUNT (AUTO) 7.9 K/uL (4.8-10.8)
[2019-06-27] MEDS: FOAM DRESSING TP SCH (09:00)
[2019-06-27] MEDS: DEXT 5% / NACL 0.45% 1,000 ML IV SCH (09:10)
--- NOTE | 2019-06-27 09:30 | NUR ---
SITTER AT BEDSIDE. PATIENT PULLED OUT IV LINE. EYE PHYSICIAN AT BEDSIDE PUTTING NEW IV LINE. WILL CONTINUE TO MONITOR.
[2019-06-27] MEDS: QUEtiapine FUMARATE 25 MG TAB PO SCH ×3 (10:15→21:00)
[2019-06-27] MEDS: NACL 0.9% 500 ML IV SCH (10:20)
[2019-06-27] MEDS: LISINOPRIL 5 MG TAB PO SCH (10:21)
[2019-06-27] MEDS: METOPROLOL 25 MG TAB PO SCH ×2 (10:21→20:26)
[2019-06-27] MEDS: ASPIRIN 81 MG TAB.CHEW PO SCH (10:21)
[2019-06-27] MEDS: ASCORBIC ACID 500 MG/5 ML ORASYR PO SCH (10:22)
[2019-06-27] MEDS: SENNA 8.6 MG TAB PO SCH ×3 (10:22→21:00)
[2019-06-27] MEDS: RIVAROXABAN 10 MG TAB PO SCH (10:22)
[2019-06-27] MEDS: FUROSEMIDE 40 MG/4 ML VIAL IVP SCH ×2 (10:23→17:28)
[2019-06-27] MEDS: LACTOBACILLUS RHAMNOSUS GG 1 EACH CAP PO SCH (10:23)
[2019-06-27] MEDS: NICOTINE TRANSD SYS 14 MG/24 HR PATCH TD SCH (10:23)
[2019-06-27] MEDS: AMIODARONE 200 MG TAB PO SCH ×3 (10:23→22:00)
[2019-06-27] MEDS: POLYETHYLENE GLYCOL 17 GM/PKT PO SCH ×3 (10:24→21:00)
[2019-06-27] MEDS: FAMOTIDINE 20 MG TAB PO SCH ×3 (10:24→21:00)
[2019-06-27] MEDS ORDERED: LORazepam 2 MG/ML VIAL IM/IVP SCH (10:30)
--- NOTE | 2019-06-27 10:43 | NUR ---
PATIENT LYING DOWN IN BED CONFUSED, TRYING TO GET OUT OF BED AND PULL OUT LINES. ATIVAN X 1 DOSE GIVEN PER MD ORDERS. OTHER SCHEDULED MEDICATIONS DUE GIVEN. SITTER AT BEDSIDE. WILL CONTINUE TO MONITOR.
--- NOTE | 2019-06-27 10:44 | NUR ---
RECEIVED A CALL FROM SULEMA PIERRE FROM [facility], MADE HER AWARE OF PATIENT'S DC PLAN TO SNF FOR CONTINUING IV ANTIBIOTIC AND PT. SHE STATED THAT SHE WILL FAX OVER CONTRACTED FACILITY. WILL FOLLOW UP
[2019-06-27] MEDS: VANCOMYCIN 1,250 MG in DEXTROSE 5% 250 ML IV SCH ×2 (11:29→23:00)
[2019-06-27 12:00] VITALS: BP 123/77
--- NOTE | 2019-06-27 12:00 | NUR ---
PATIENT LYING DOWN IN BED SLEEPING, AROUSABLE BY TOUCH. ASSISTED PATIENT IN REPOSITIONING. NO RESTRAINTS ON AT THIS TIME. SITTER AT BEDSIDE. WILL CONTINUE TO MONITOR.
[2019-06-27] MEDS: INSULIN LISPRO SLIDING SCALE 100 UNITS/ML VIAL SUBQ PRN ×2 (12:17→17:45)
--- NOTE | 2019-06-27 13:15 | NUR ---
WOUND CARE DRESSINGS CHANGED PER MD ORDERS ON RLE CELLULITIS WOUNDS. PATIENT TOLERATED WELL. WILL CONTINUE TO MONITOR.
--- NOTE | 2019-06-27 13:30 | NUR ---
ASSISTED FLOOR MECHANIC IN CLEANING AND REPOSITIONING PATIENT. SCHEDULED MEDICATIONS DUE GIVEN. WOUND CARE DRESSING CHANGED PERFORMED PER MD ORDERS. PATIENT TOLERATED WELL. WILL CONTINUE TO MONITOR.
[2019-06-27 16:00] VITALS: BP 113/76
--- NOTE | 2019-06-27 17:46 | NUR ---
PATIENT AWAKE, CONFUSED TRYING TO GET OUT OF BED AND PULL IV LINES. SITTER AT BEDSIDE. NO RESTRAINTS AT THIS TIME. ATIVAN AND OTHER SCHEDULED MEDICATIONS DUE GIVEN AT THIS TIME. WILL CONTINUE TO MONITOR.
--- NOTE | 2019-06-27 19:24 | NUR ---
GAVE REPORT TO SENIOR NET WEB DEVELOPER NURSE FOR CONTINUITY OF CARE. PATIENT IN STABLE CONDITION.
--- NOTE | 2019-06-27 19:25 | NUR ---
REPORT RECEIVED FROM AM NURSE AT BEDSIDE. PT IN STABLE CONDITION. AAOX1. INTRODUCED SELF TO PT. BOARD UPDATED. FLACC 0. NO SOB. AFEBRILE. PT IS ON BEDREST. 1:1 SITTER. IV SITE R HAND 24G RUNNING D5 1/2NS@50ML/HR PATENT AND INTACT. SKIN WARM, DRY, AND NOT INTACT DUE TO MULTIPLE WOUNDS AND SACRAL ULCER STAGE 2. BED LOCKED IN LOW POSITION. CALL SMITH WITHIN REACH. SAFETY PRECAUTION IN PLACE. ALL NEEDS MET AT THIS TIME.
[2019-06-27 20:00] VITALS: BP 114/61
[2019-06-27] MEDS: ATORVASTATIN 20 MG TAB PO SCH ×2 (20:29→21:00)
--- NOTE | 2019-06-27 20:30 | NUR ---
BS 102. NO INSULIN COVERAGE NEEDED. LOPRESSOR HELD DUE TO DECREASED BP OF 114/61. LIPITOR, CARDORONE, MIRALAX, PEPCID, SENNA, AND SEROQUEL WERE PULLED FROM THE PYXIS. I MIXED THEM IN APPLESAUCE TO GIVE TO PT BUT PATIENT IS AAOX1 AND WAS GIVEN ATIVAN EARLIER. NOTIFIED THAT PATIENT IS UNABLE TO TAKE MEDICATION AT THIS TIME. MD SAID ALL OTHER MEDICATIONS ARE OK TO NOT GIVE. BUT WHEN PATIENT WAKES UP GIVE HIM CARDORONE. OTHER MEDICATIONS NON-ADMINISTERED AND WAITING FOR PATIENT TO BECOME MORE AWAKE AND ORIENTED BEFORE GIVING CARDORONE.
--- NOTE | 2019-06-27 22:00 | NUR ---
PT MORE AWAKE AND ALERT. AMIODARONE GIVEN PO WITH APPLESAUCE. PT TOLERATED WELL.
--- NOTE | 2019-06-27 22:40 | NUR ---
CRITICAL VALUE CALLED IN BY LAB. PORTER@20.5. NOTIFIED. WILL CALL PHARMACY.
--- NOTE | 2019-06-27 23:00 | NUR ---
CALLED PHARMACY TO INFORM THEM THAT THE VANCO TROUGH IS 20.5. PHARMACY SAID TO HOLD THIS DOSE AND ENDORSE TO IN HOUSE PHARMACY TO ADJUST THE NEXT DOSE.
--- NOTE | 2019-06-27 23:45 | NUR ---
ATIVAN GIVEN IVP. PT TOLERATED WELL.
[2019-06-28] VITALS: BP 106/75
--- NOTE | 2019-06-28 00:16 | NUR ---
MICHAEL MARIE AND LUKAS. PT TOLERATING WELL. Addendum: 06/28/19 at 0122 by Memo Mccloud RN BOBY RUANO.
[2019-06-28] MEDS: Z-GUARD PASTE TP SCH ×3 (00:17→13:35)
[2019-06-28] MEDS: PIPERACILLIN/TAZOBACTAM 3.375 GM in DEXTROSE 5% 50 ML IV SCH ×4 (00:19→17:43)
--- NOTE | 2019-06-28 02:00 | NUR ---
PT AWAKE AND VERY CONFUSED AND AGITATED. WILL CONTINUE TO MONITOR.
--- NOTE | 2019-06-28 03:30 | NUR ---
PT SLEEPING COMFORTABLY BUT AROUSABLE. NO S/S OF DISTRESS NOTED. WILL CONTINUE TO MONITOR.
[2019-06-28 04:00] VITALS: BP 107/64
[2019-06-28] MEDS: DEXT 5% / NACL 0.45% 1,000 ML IV SCH (05:10)
--- NOTE | 2019-06-28 05:15 | NUR ---
PT BECAME EXTREMELY AGITATED AND TRIED TO GET OUT OF BED. PT SAID HE WANTED TO GO HOME. PATIENT WAS HELPED TO THE FLOOR BY MYSELF AND THE VEHICLE MAINTENANCE SUPERVISOR. I ASKED HIM WHERE HE WAS GOING AND HE SAID HE WAS LEAVING AND CRAWLED TOWARDS THE DOOR. SECURITY WAS CALLED TO KEEP PATIENT IN HIS ROOM. PATIENT PICKED UP AND PUT ON HIS WHEELCHAIR. PT DID NOT FALL. PT IS SAFE.
--- NOTE | 2019-06-28 06:19 | NUR ---
MICHAEL HUNG AND RUNNING. PT TOLERATED WELL.
[2019-06-28] MEDS: BLOOD GLUCOSE MONITORING 1 DEV DEV FS SCH ×4 (06:42→21:04)
--- NOTE | 2019-06-28 06:42 | NUR ---
BS 135. NO INSULIN COVERAGE NEEDED.
--- NOTE | 2019-06-28 07:27 | NUR ---
RECEIVED REPORT FROM WATER SERVER NURSE. PATIENT SITTING ON HIS WHEELCHAIR WATCHING TV. SITTER AT BEDSIDE. AAOX2, INTERMITTENT CONFUSION. IV SITE INTACT, PATENT, AND INFUSING IVF PER MD ORDERS. RESPIRATIONS EVEN, UNLABORED, ON ROOM AIR. SITTER AT BEDSIDE. REVIEWED PLAN OF CARE WITH PATIENT. REINFORCEMENT NEEDED. SAFETY MEASURES IN PLACE, CALL LIGHT WITHIN REACH. WILL CONTINUE TO MONITOR.
[2019-06-28] MEDS: ALBUTEROL SULFATE/IPRATROPIU 3 ML SOL IH SCH ×3 (07:39→19:13)
[2019-06-28 08:00] VITALS: BP 120/75
--- NOTE | 2019-06-28 08:55 | NUR ---
LATE ENTRY FOR 06/27/19: ALL CLINICAL FAXED TO: [facility] AT [phone]. [facility] - [phone] [facility] - [phone] [facility] - [phone] PER KEVIN OF [facility], NO BEDS AT THIS TIME. PER ANGEL OF [facility], WILL REVIEW CLINICALS PER HANNAH OF [facility], WILL REVIEW CLINICALS
[2019-06-28] MEDS: POLYETHYLENE GLYCOL 17 GM/PKT PO SCH ×2 (09:00→21:03)
--- NOTE | 2019-06-28 09:50 | NUR ---
PATIENT CONFUSED, TRYING TO GET OUT OF BED AND PULL IV LINES. SCHEDULED MEDICATIONS DUE GIVEN. SITTER AT BEDSIDE. WILL CONTINUE TO MONITOR.
[2019-06-28] MEDS: LORazepam 2 MG/ML VIAL IM/IVP PRN ×2 (09:51→20:05)
[2019-06-28] MEDS: FUROSEMIDE 40 MG/4 ML VIAL IVP SCH ×2 (09:54→17:00)
[2019-06-28] MEDS: LACTOBACILLUS RHAMNOSUS GG 1 EACH CAP PO SCH (09:54)
[2019-06-28] MEDS: RIVAROXABAN 10 MG TAB PO SCH (09:55)
[2019-06-28] MEDS: FAMOTIDINE 20 MG TAB PO SCH ×2 (09:56→21:02)
[2019-06-28] MEDS: ASCORBIC ACID 500 MG/5 ML ORASYR PO SCH (09:56)
[2019-06-28] MEDS: LISINOPRIL 5 MG TAB PO SCH (09:56)
[2019-06-28] MEDS: ASPIRIN 81 MG TAB.CHEW PO SCH (09:56)
[2019-06-28] MEDS: SENNA 8.6 MG TAB PO SCH ×2 (09:56→21:03)
[2019-06-28] MEDS: QUEtiapine FUMARATE 25 MG TAB PO SCH ×2 (09:56→21:03)
[2019-06-28] MEDS: METOPROLOL 25 MG TAB PO SCH ×2 (09:56→21:03)
[2019-06-28] MEDS: NICOTINE TRANSD SYS 14 MG/24 HR PATCH TD SCH (10:00)
--- NOTE | 2019-06-28 10:05 | NUR ---
ATTEMPT TO RE-EVALUATE WOUNDS AND PT. IS RESTLESS AT THIS TIME. WILL TRY AGAIN
[2019-06-28] MEDS: NACL 0.9% 500 ML IV SCH (10:20)
[2019-06-28] MEDS ORDERED: LORazepam 2 MG/ML VIAL IM/IVP SCH (10:43)
--- NOTE | 2019-06-28 10:45 | NUR ---
PER TICO OF [facility] AT [phone], THEY ONLY HAVE FEMALE BEDS AT THIS TIME.
[2019-06-28] MEDS: AMIODARONE 200 MG TAB PO SCH ×2 (10:53→21:02)
--- NOTE | 2019-06-28 11:00 | NUR ---
PATIENT CONTINUOUSLY TRYING TO GET OUT OF BED HANGING ON TO SIDE RAILS AND REFUSES TO GET BACK TO BED. ATIVAN X 1 DOSE GIVEN AT THIS TIME PER MD ORDERS. PATIENT CALMER AFTER ATIVAN. SITTER AT BEDSIDE. WILL CONTINUE TO MONITOR.
[2019-06-28 12:00] VITALS: BP 115/70
--- NOTE | 2019-06-28 12:05 | NUR ---
CONTINUES TO BE CONFUSED AND TRYING TO GET OUT OF BED. SITTER AT BEDSIDE. SCHEDULED MEDICATIONS DUE GIVEN. WILL CONTINUE TO MONITOR.
[2019-06-28] MEDS: INSULIN LISPRO SLIDING SCALE 100 UNITS/ML VIAL SUBQ PRN ×2 (12:34→21:11)
[2019-06-28] MEDS: VANCOMYCIN 1,000 MG in DEXTROSE 5% 250 ML IV SCH ×2 (13:25→23:00)
--- NOTE | 2019-06-28 14:00 | NUR ---
PATIENT LYING DOWN IN BED SLEEPING, AROSUABLE BY VOICE. SITTER AT BEDSIDE. NO DISTRESS NOTED. WILL CONTINUE TO MONITOR.
[2019-06-28 16:00] VITALS: BP 95/54
--- NOTE | 2019-06-28 16:52 | NUR ---
ASSISTED HALL TENDER IN CLEANING AND REPOSITIONING PATIENT. PATIENT TOLERATED WELL. WILL CONTINUE TO MONITOR.
--- NOTE | 2019-06-28 19:25 | NUR ---
GAVE REPORT TO LAB NURSE NURSE FOR CONTINUITY OF CARE. PATIENT IN STABLE CONDITION.
--- NOTE | 2019-06-28 19:26 | NUR ---
RECEIVED PATIENT ON ROOM AIR, PULSE OX SAT 95%. SCHEDULED BREATHING TREATMENT ADMINISTERED. TOLERATED TX WELL, NO ADVERSE SIDE EFFECTS. ASSISTED IN DRESSING PATIENT. NO RESPIRATORY DISTRESS NOTED AT THIS TIME. WILL CONTINUE TO MONITOR.
--- NOTE | 2019-06-28 19:30 | NUR ---
RECEIVED BEDSIDE REPORT FROM DAY SHIFT RN, PATIENT MOVING AROUND IN BED, YELLING, NOT ABLE TO FOLLOW COMMANDS STATING HE NEEDS TO GET OUT OF THIS CAR. SITTER AT BEDSIDE. WILL MEDICATE WITH ATIVAN, V/S STABLE. IV IN RIGHT HAND DRESSING INTACT. LEFT BKA, RIGHT LEG CELLULITIS, SACRAL ULCER NOTED. ON RA, CALL LIGHT WITHIN REACH, BED IN LOWEST POSITION.
[2019-06-28 20:00] VITALS: BP 110/78
[2019-06-28] MEDS: ATORVASTATIN 20 MG TAB PO SCH (21:03)
--- NOTE | 2019-06-28 21:04 | NUR ---
DUE MEDICATION GIVEN EDUCATION PROVIDED
--- NOTE | 2019-06-28 23:22 | NUR ---
DR OAKES INSTRUCTED TO HOLD VANCO DUE TO VANCO TROUGH 20.5 Addendum: 07/03/19 at 0545 by Mary Jara RN CALLED DR OAKES, DR OAKES WAS REPORTED TO BE IN SURGERY, LEFT MESSAGE TO CALL BACK REGARDING IF HE WANTED ME TO GIVE VANCO. DR OAKES CALLED BACK AND INSTRUCTED HE WILL REVIEW ORDERS TO SEE IF WE SHOULD GIVE VANCO. DR OAKES CALLED BACK AND INSTRUCTED TO HOLD VANCO.
[2019-06-29] VITALS: BP 105/70
[2019-06-29] MEDS: PIPERACILLIN/TAZOBACTAM 3.375 GM in DEXTROSE 5% 50 ML IV SCH ×4 (00:13→18:29)
[2019-06-29] MEDS: Z-GUARD PASTE TP SCH ×3 (00:14→14:09)
[2019-06-29] MEDS: DEXT 5% / NACL 0.45% 1,000 ML IV SCH ×2 (00:14→21:10)
--- NOTE | 2019-06-29 01:00 | NUR ---
WOUND CARE PROVIDED EDUCATION GIVEN PATIENT UNABLE TO VERBALIZE UNDERSTANDING
--- NOTE | 2019-06-29 02:00 | NUR ---
SLEEPING IN BED SITTER AT BEDSIDE
[2019-06-29 04:00] VITALS: BP 108/80
--- NOTE | 2019-06-29 04:00 | NUR ---
PATIENT HAD 1 BM JAMIE CARE PROVIDED
--- NOTE | 2019-06-29 06:10 | NUR ---
PATIENT HAD BM BED BATH PROVIDED
[2019-06-29] MEDS: BLOOD GLUCOSE MONITORING 1 DEV DEV FS SCH ×4 (06:28→20:55)
--- NOTE | 2019-06-29 06:59 | NUR ---
WILL ENDORSED PATIENT TO DAY SHIFT NURSE, PATIENT STABLE.
[2019-06-29] MEDS: ALBUTEROL SULFATE/IPRATROPIU 3 ML SOL IH SCH ×3 (07:35→19:00)
[2019-06-29 08:00] VITALS: BP 97/46
[2019-06-29 08:31] LABS: BASOPHILS % (AUTO) 0.7 % (0.0-2.0); EOSINOPHILS # (AUTO) 0.1 K/uL (0-0.4); EOSINOPHILS % (AUTO) 1.3 % (0.0-4.0); HEMATOCRIT 32.1 % (36-52); HEMOGLOBIN 10.2 g/dL (12.0-18.0); LYMPHOCYTES # (AUTO) 0.8 K/uL (2.0-11.5); LYMPHOCYTES % (AUTO) 11.6 % (20.5-51.1); MEAN CORPUSCULAR HEMOGLOBIN 26 pg (27-31); MEAN CORPUSCULAR HGB CONC 32 g/dL (33-37); MEAN CORPUSCULAR VOLUME 82.4 fL (80-94); MONOCYTES # (AUTO) 0.8 K/uL (0.8-1.0); MONOCYTES % (AUTO) 11.5 % (1.7-9.3); NEUTROPHILS # (AUTO) 5.1 K/uL (1.8-7.7); NEUTROPHILS % (AUTO) 74.9 % (42.2-75.2); PLATELET COUNT (AUTO) 156 K/uL (140-450); RED BLOOD CELL COUNT(AUTO) 3.89 MIL/uL (4.20-6.10); RED CELL DISTRIBUTION WIDTH 19.6 % (11.6-13.7); WHITE BLOOD COUNT (AUTO) 6.8 K/uL (4.8-10.8)
[2019-06-29 08:40] LABS: ANION GAP 7.4 (8-16); CARBON DIOXIDE 35.2 mmol/L (21-32); CREATININE 0.8 mg/dL (0.7-1.3)
[2019-06-29 08:44] LABS: POTASSIUM 2.6 mmol/L (3.5-5.1)
[2019-06-29 08:47] LABS: MAGNESIUM 1.6 mg/dL (1.8-2.4); PHOSPHORUS 2.8 mg/dL (2.5-4.9)
--- NOTE | 2019-06-29 08:50 | NUR ---
RECEIVED CRITICAL LAB FOR POTASSIUM 2.6L, REPORTED TO DR HEATH AND DR HEATH WAS AWARE. PER DR HEATH, HE WILL INPUT THE ORDER.
[2019-06-29] MEDS ORDERED: POTASSIUM CHLORIDE 10 MEQ TABER PO SCH ×2 (09:00→17:30)
[2019-06-29] MEDS ORDERED: POTASSIUM CHLORIDE 40 MEQ, LIDOCAINE MPF 1% - 5 mL VIAL 25 MG in NACL 0.9% 250 ML IV SCH (09:30)
--- NOTE | 2019-06-29 09:45 | NUR ---
PATIENT ATTEMPTED TO PULL OUT IV LINE, BLOOD RE-FLOW AND KERLIX WAS WET AND DIRTY. CHANGED KERLIX AND CHANGE IV LINE, IV LINE PATENT AND INTACT. EDUCATION PROVIDED TO PATIENT, BUT PT UNABLE TO COMPREHEND. 1:1 SITTER BY BEDSIDE. BED IN LOW POSITION AND CALL LIGHT WITHIN IN REACH. TELE MONITOR IN PLACE.
[2019-06-29] MEDS: POLYETHYLENE GLYCOL 17 GM/PKT PO SCH ×2 (10:07→20:41)
[2019-06-29] MEDS: ASPIRIN 81 MG TAB.CHEW PO SCH (10:07)
[2019-06-29] MEDS: METOPROLOL 25 MG TAB PO SCH ×2 (10:08→20:31)
[2019-06-29] MEDS: LISINOPRIL 5 MG TAB PO SCH (10:08)
[2019-06-29] MEDS: AMIODARONE 200 MG TAB PO SCH ×2 (10:09→20:41)
[2019-06-29] MEDS: LACTOBACILLUS RHAMNOSUS GG 1 EACH CAP PO SCH (10:09)
[2019-06-29] MEDS: QUEtiapine FUMARATE 25 MG TAB PO SCH ×2 (10:10→20:30)
[2019-06-29] MEDS: SENNA 8.6 MG TAB PO SCH ×2 (10:10→20:29)
[2019-06-29] MEDS: FAMOTIDINE 20 MG TAB PO SCH ×2 (10:10→20:29)
[2019-06-29] MEDS: RIVAROXABAN 10 MG TAB PO SCH (10:12)
[2019-06-29] MEDS: FUROSEMIDE 40 MG/4 ML VIAL IVP SCH ×2 (10:13→18:28)
--- NOTE | 2019-06-29 10:15 | NUR ---
ADMINISTERED MEDS PER MD ORDER, PATIENT TOLERATED WELL. HOLD BP MEDS LISINOPRIL AND METOPROLOL DUE TO BP IS LOW; 97/46 AND PULSE 66. EDUCATION PROVIDED TO PATIENT, REINFORCEMENT NEEDED. PATIENT AWAKE AND RESTING ON BED. 1:1 SITTER BY BEDSIDE. SAFETY MEASURES IN PLACE. BED IN LOW POSITION AND CALL LIGHT WITHIN REACH.
[2019-06-29] MEDS: NICOTINE TRANSD SYS 14 MG/24 HR PATCH TD SCH (10:19)
[2019-06-29] MEDS: NACL 0.9% 500 ML IV SCH (10:19)
[2019-06-29] MEDS: ASCORBIC ACID 500 MG/5 ML ORASYR PO SCH (10:46)
[2019-06-29] MEDS ORDERED: LISI-424 PO (11:01)
[2019-06-29] MEDS ORDERED: Foam Dressing TP (11:01)
[2019-06-29] MEDS ORDERED: QUET25TA46 PO (11:01)
[2019-06-29] MEDS ORDERED: LACT10CA PO (11:01)
[2019-06-29] MEDS ORDERED: NITR0.4T1 SL (11:01)
[2019-06-29] MEDS ORDERED: ASPI81CT95 PO (11:01)
[2019-06-29] MEDS ORDERED: FAMO20TA13 PO (11:01)
[2019-06-29] MEDS ORDERED: METO25TA PO (11:01)
[2019-06-29] MEDS ORDERED: ATOR20TA40 PO (11:01)
[2019-06-29] MEDS ORDERED: VANC1PIG IV (11:01)
[2019-06-29] MEDS ORDERED: XAR10 PO (11:01)
[2019-06-29] MEDS: VANCOMYCIN 1,000 MG in DEXTROSE 5% 250 ML IV SCH ×2 (11:43→23:49)
--- NOTE | 2019-06-29 11:43 | NUR ---
ADMINISTERED VANCOMYCIN VIA IV PER MD ORDER, PATIENT AWAKE AND WATCHING TV ON BED. RESPIRATION EVEN AND UNLABORED ON RA. DENIED PAIN AT THIS TIME. NO SIGNS OF DISTRESS NOTED. SAFETY MEASURES IN PLACE. 1:! SITTER BY BEDSIDE. BED IN LOW POSITION AND CALL LIGHT WITHIN REACH.
[2019-06-29] MEDS: INSULIN LISPRO SLIDING SCALE 100 UNITS/ML VIAL SUBQ PRN ×3 (11:58→20:58)
[2019-06-29 12:00] VITALS: BP 96/45
[2019-06-29 12:01] VITALS: BP 96/45
[2019-06-29] MEDS ORDERED: MAG SULF 2000 MG/WATER PREMIX 50 ML IV SCH ×2 (13:00→22:30)
--- NOTE | 2019-06-29 13:14 | NUR ---
WELLNESS PROGRAM MANAGER AND RN AT BEDSIDE FOR PHYSICAL HYGIENE AND REPOSITION NUTRITION PROGRAM INSTRUCTOR TO ATTEMPT [facility] THERAPY AND RES[IRATORY DRUG AT A LATER TIME
--- NOTE | 2019-06-29 13:40 | NUR ---
CLEAN AND CHANGED WOUND DRESSING ON BILTERAL FOOT AND SACRAL, MINIMAL DRAINAGE, PATIENT TOLERATED WELL. NO SIGNS OF DISTRESS NOTED. SAFETY MEASURES IN PLACE. 1:1 SITTER BY BEDSIDE. BED IN LOW POSITION AND CALL LIGHT WITHIN REACH.
--- NOTE | 2019-06-29 14:59 | NUR ---
06/29/19 RD FOLLOW UP COMPLETED PLEASE REFER TO NUTRITION ASSESSMENT UNDER CARE ACTIVITY FOR ESTIMATED NUTRITIONAL NEEDS. 1. CONTINUE PUREE DIET WITH HONEY THICK LIQUIDS TOLERATED 2. CONTINUE PROVIDING ASSISTANCE TO FEED PATIENT 3. RD TO FOLLOW-UP 3-5 DAYS, MODERATE RISK COLT RAI, MCKENZIE
--- NOTE | 2019-06-29 15:25 | NUR ---
PATIENT AWAKE AND SITTING UP ON BED. RESPIRATION EVEN AND UNLABORED ON RA. DENIED PAIN. NO SIGNS OF DISTRESS NOTED. SAFETY MEASURES IN PLACE. 1:1 BY BEDSIDE. BED IN LOW POSITION AND CALL LIGHT WITHIN REACH.
--- NOTE | 2019-06-29 17:15 | NUR ---
RECEIVED CRITICAL LAB FOR POTASSIUM 2.7. REPORTED TO DR HEATH AND DR HEATH WAS AWARE. DR VICKERS INPUT ORDER.
--- NOTE | 2019-06-29 17:45 | NUR ---
PATIENT IS SITTING ON A WHEEL CHAIR, 1:1 SITTER IS BY PATIENT' SIDE. NO SIGNS OF DISTRESS NOTED.
[2019-06-29] MEDS ORDERED: POTASSIUM CHLORIDE 40 MEQ, LIDOCAINE 1% 25 MG in NACL 0.9% 250 ML IV SCH (18:00)
[2019-06-29] MEDS ORDERED: MAGNESIUM OXIDE 400 MG TAB PO SCH (18:30)
--- NOTE | 2019-06-29 19:15 | NUR ---
RECD. SITTING ON W/C, A/0X2, CONFUSED. RESPIRATION EVEN AND UNLABORED. K-RIDER 40 MEQ IVPB INFUSING AT 68 ML/HR, RIGHT HAND G24. LEFT BELOW THE KNEE AMPUTATION, WOUNDS ON BILATERAL LOWER EXTREMITIES COVERED WITH DRESSING, DRY AND INTACT. REORIENTED TO HOSPITAL SETTING, AT TIMES STUBBORN AND UNCOOPERATIVE. PLAN OF CARE FOR THE SHIFT DISCUSSED. SEEMS NOT INTERESTED. NEEDS REINFORCEMENT. DENIES PAIN 0/10.
--- NOTE | 2019-06-29 19:25 | NUR ---
ENDORSED PATIENT AT BEDSIDE TO POLE FRAME CONSTRUCTION WORKER NURSE FOR CONTINUITY OF CARE. PATIENT AWAKE AND SITTING UP WHEELCHAIR. 1:1 SITTER IS BY PATIENT' SIDE. NO SIGNS OF DISTRESS NOTED. PATIENT IS IN STABLE CONDITION.
--- NOTE | 2019-06-29 19:40 | NUR ---
PUT BACK TO BED, SEEMS DROWSY, CLOSED EYES FOR 15 MINUTES, THEN TRIED TO GET OUT OF BED TO W/C. TRANSFERRED BACK TO W/C.
[2019-06-29 20:00] VITALS: BP 96/52
--- NOTE | 2019-06-29 20:00 | NUR ---
TRYING TO GET OUT OF THE ROOM. REORIENTED TO HOSPITAL SETTING, GETS ANGRY. SAYING BAD WORDS. WANTS TO G0 OUT AND SMOKE. EXPLAINED THAT HE IS IN THE HOSPITAL. WON'T LISTENED TO NURSES.
--- NOTE | 2019-06-29 20:00 | NUR ---
Patient's Plan of Care was discussed and reviewed with URBAN RENEWAL MANAGER: KAITY NORIEGA
[2019-06-29] MEDS: ATORVASTATIN 20 MG TAB PO SCH (20:30)
--- NOTE | 2019-06-29 20:30 | NUR ---
NELSON GARCIA CAME TO BE THE NEW SITTER. PATIENT STILL IS BEING STUBBORN.
[2019-06-30] MEDS: LORazepam 2 MG/ML VIAL IM/IVP PRN ×2 (00:06→23:21)
--- NOTE | 2019-06-30 00:06 | NUR ---
WITH AGITATION, ALWAYS TRYING TO GET OUT OF THE ROOM, MEDICATED WITH ATIVAN ORDERED.
[2019-06-30] MEDS: PIPERACILLIN/TAZOBACTAM 3.375 GM in DEXTROSE 5% 50 ML IV SCH ×4 (00:08→18:00)
--- NOTE | 2019-06-30 00:30 | NUR ---
STILL AWAKE, GOES TO BED THEN GOES BACK TO W/C. INSISTED ON GOING OUT OF THE ROOM EVEN IF NURSE DOES NOT WANT HIM TO GO OUT. WHEELED OUT HIS W/C WITH HIM SITTING ON IT AND TURN AROUND THE NURSES STATION. CALLED SECURITY AND AGREED TO STAY IN BED.
--- NOTE | 2019-06-30 00:35 | NUR ---
NO AGITATION, SLEEPING COMFORTABLY.
[2019-06-30] MEDS: Z-GUARD PASTE TP SCH ×3 (01:52→13:00)
--- NOTE | 2019-06-30 02:00 | NUR ---
AWAKE, IV GOT PULLED OUT. WILL INSERT NEW IV LINE.
--- NOTE | 2019-06-30 03:00 | NUR ---
NEW IV LINE INSERTED BY ICU NURSE VIRGIE LEFT HAND G24. RIGHT HAND SWOLLEN DUE TO IV INFILTRATION, APPLIED WARM COMPRESS.
--- NOTE | 2019-06-30 04:00 | NUR ---
SLEEPING COMFORTABLY IN BED.
[2019-06-30 05:00] VITALS: BP 97/46
--- NOTE | 2019-06-30 06:00 | NUR ---
AWAKE, NEW SITTER NEAR DOOR MONITORING PATIENT. CONDITION REMAIN STABLE.
[2019-06-30] MEDS: INSULIN LISPRO SLIDING SCALE 100 UNITS/ML VIAL SUBQ PRN ×2 (06:36→12:22)
[2019-06-30] MEDS: BLOOD GLUCOSE MONITORING 1 DEV DEV FS SCH ×4 (06:36→21:49)
[2019-06-30] MEDS: ALBUTEROL SULFATE/IPRATROPIU 3 ML SOL IH SCH ×3 (07:13→21:10)
--- NOTE | 2019-06-30 07:15 | NUR ---
ENDORSED TO AM SHIFT NURSE FOR CONTINUITY OF CARE.
[2019-06-30 07:41] LABS: BASOPHILS % (AUTO) 0.6 % (0.0-2.0); EOSINOPHILS # (AUTO) 0.1 K/uL (0-0.4); EOSINOPHILS % (AUTO) 0.7 % (0.0-4.0); HEMATOCRIT 30.8 % (36-52); HEMOGLOBIN 9.7 g/dL (12.0-18.0); LYMPHOCYTES # (AUTO) 0.9 K/uL (2.0-11.5); LYMPHOCYTES % (AUTO) 12.1 % (20.5-51.1); MEAN CORPUSCULAR HEMOGLOBIN 26 pg (27-31); MEAN CORPUSCULAR HGB CONC 31 g/dL (33-37); MEAN CORPUSCULAR VOLUME 82.9 fL (80-94); MONOCYTES # (AUTO) 0.8 K/uL (0.8-1.0); MONOCYTES % (AUTO) 10.4 % (1.7-9.3); NEUTROPHILS # (AUTO) 5.6 K/uL (1.8-7.7); NEUTROPHILS % (AUTO) 76.2 % (42.2-75.2); PLATELET COUNT (AUTO) 189 K/uL (140-450); RED BLOOD CELL COUNT(AUTO) 3.71 MIL/uL (4.20-6.10); RED CELL DISTRIBUTION WIDTH 19.7 % (11.6-13.7); WHITE BLOOD COUNT (AUTO) 7.3 K/uL (4.8-10.8)
[2019-06-30 07:47] LABS: ANION GAP 11.2 (8-16); CARBON DIOXIDE 30.5 mmol/L (21-32); CREATININE 0.9 mg/dL (0.7-1.3); POTASSIUM 3.7 mmol/L (3.5-5.1)
--- NOTE | 2019-06-30 07:51 | NUR ---
RECEIVED HAND OFF REPORT FROM PM RN. PT IS AWAKE IN BED PT HAS SITTER AT BEDSIDE. IV IN LEFT FOREARM. BED IN LOWEST LOCKED POSITION. ALL SAFETY MEASURES ARE IN PLACE WILL CONTINUE TO MONITOR.
[2019-06-30 08:03] LABS: MAGNESIUM 2.2 mg/dL (1.8-2.4); PHOSPHORUS 2.8 mg/dL (2.5-4.9)
[2019-06-30] MEDS: NICOTINE TRANSD SYS 14 MG/24 HR PATCH TD SCH ×2 (09:00→09:23)
[2019-06-30] MEDS: FUROSEMIDE 40 MG/4 ML VIAL IVP SCH ×2 (09:19→17:00)
[2019-06-30] MEDS: ASPIRIN 81 MG TAB.CHEW PO SCH (09:20)
[2019-06-30] MEDS: FAMOTIDINE 20 MG TAB PO SCH ×2 (09:20→21:39)
[2019-06-30] MEDS: QUEtiapine FUMARATE 25 MG TAB PO SCH ×2 (09:20→21:38)
[2019-06-30] MEDS: POLYETHYLENE GLYCOL 17 GM/PKT PO SCH ×3 (09:20→21:39)
[2019-06-30] MEDS: AMIODARONE 200 MG TAB PO SCH ×2 (09:20→21:38)
[2019-06-30] MEDS: METOPROLOL 25 MG TAB PO SCH ×2 (09:20→21:38)
[2019-06-30] MEDS: LACTOBACILLUS RHAMNOSUS GG 1 EACH CAP PO SCH (09:20)
[2019-06-30] MEDS: SENNA 8.6 MG TAB PO SCH ×2 (09:20→21:00)
[2019-06-30] MEDS: ASCORBIC ACID 500 MG/5 ML ORASYR PO SCH (09:22)
[2019-06-30] MEDS: FOAM DRESSING TP SCH (09:23)
[2019-06-30] MEDS: LISINOPRIL 5 MG TAB PO SCH (09:24)
[2019-06-30] MEDS: RIVAROXABAN 10 MG TAB PO SCH (09:25)
--- NOTE | 2019-06-30 09:45 | NUR ---
ADMINISTERED MORNING MEDICATION SCANNER BROKEN ON WOW 2. UNABLE TO SCAN. PT REFUSED NICOTINE PATCH , RETURNED PATCH TO [facility]. CRUSHED MEDICATIONS, AND PLACED IN THICKENED LIQUID.
[2019-06-30] MEDS: NACL 0.9% 500 ML IV SCH (10:20)
[2019-06-30] MEDS: VANCOMYCIN 1,000 MG in DEXTROSE 5% 250 ML IV SCH ×2 (11:00→22:54)
--- NOTE | 2019-06-30 12:11 | NUR ---
CALLED JOSE RAMIREZ PERSON TO CONTACT ON PT FACE SHEET AND RECEIVED VERBAL CONSENT FOR PICC LINE PLACEMENT. SECOND NURSE LEXY MEYER WITNESSED. VERBAL PHONE CONSENT. JOSE RAMIREZ [phone]
--- NOTE | 2019-06-30 12:28 | NUR ---
FINGER STICK GLUCOSE 204 4 UNITS HUMALOG GIVEN PER SLIDING SCALE. Addendum: 06/30/19 at 1255 by Samara Schaffer RN UNABLE TO SCAN MEDICATION. SCANNER BROKEN ON WOW
--- NOTE | 2019-06-30 12:56 | NUR ---
CALLED HOUSE SUPERVISIOR TO NOTIFY THAT THE CONSENT HAS BEEN SIGNED FOR PICC LINE PLACEMENT. PLACED SIGNED CONSENT IN THE PATIENT CHART.
--- NOTE | 2019-06-30 12:58 | NUR ---
UNABLE TO ADMINISTER AFTERNOON IV ANTIBIOTICS PT PULLED OUT IV WAITING FOR PICC LINE PLACEMENT.
--- NOTE | 2019-06-30 13:53 | NUR ---
TRIED TO PERFORM WOUND CARE ON PATIENT WOUNDS. PT REFUSED
--- NOTE | 2019-06-30 14:47 | NUR ---
PT REFUSED BREATHING TX STATES HIS BREATHING IS FINE. PT IN WHEEL CHAIR WITH MATERIAL SPECIALIST BEDSIDE. PT NOT IN ANY DISTRESS OR SOB. WILL CONTINUE TO MONITOR.
--- NOTE | 2019-06-30 14:52 | NUR ---
FREQUENT ROUNDING ON PT PT AWAKE AND IN WHEEL CHAIR WAS INFORMED THAT PATIENT REFUSED HIS BREATHING TREATMENT. OFFERED PT WOUND CARE AGAIN. PT STILL REFUSED. SITTER AT BEDSIDE. ALL SAFETY MEASURES ARE IN PLACE WILL CONTINUE TO MONITOR.
--- NOTE | 2019-06-30 15:42 | NUR ---
UNABLE TO ADMINISTER IV ANTIBIOTICS FOR 1100 AND 1200 VANCOMYCIN AND ZOSYN. PT DOES NOT HAVE IV. WAITING FOR PICC LINE
[2019-06-30 16:00] VITALS: BP 115/54
--- NOTE | 2019-06-30 16:09 | NUR ---
CHANGED SACRAL WOUND AND CLEANED AND APPLIED NEW HEART SHAPE BANDAGE
--- NOTE | 2019-06-30 16:28 | NUR ---
spoke to [facility] to get a list of contracted SNF. was informed to call JOSE Perry at [phone], called Cecil Perry and will talk with returned case inspector radha MEYER to get contracted facility AT [phone]. was transferred to Radha. lEFT A MESSAGE FOR RADHA.
[2019-06-30] MEDS: DEXT 5% / NACL 0.45% 1,000 ML IV SCH (17:10)
--- NOTE | 2019-06-30 17:30 | NUR ---
FINGERSTICK GLUCOSE 140 NO COVERAGE GIVEN UNABLE TO ADMINISTER LASIX AND IVF PT DOES NOT HAVE IV ACCESS WAITING FOR PICC LINE NURSE TO PLACE PICC LINE
--- NOTE | 2019-06-30 18:05 | NUR ---
UNABLE TO ADMINISTER ZOSYN STILL WAITING FOR PICC LINE PLACEMENT
--- NOTE | 2019-06-30 19:01 | NUR ---
FOLLOWED UP WITH HECTOR ABOUT PICC LINE NURSE SHE STATED SHE WILL DOUBLE CHECK
--- NOTE | 2019-06-30 19:34 | NUR ---
ENDORSED PT TO PM RN. SITTER AT BEDSIDE. PT APPEARS STABLE AND IN NO APPARENT DISTRESS. ALL SAFETY MEASURES ARE IN PLACE
--- NOTE | 2019-06-30 19:35 | NUR ---
RECEIVED REPORT FROM AM NURSE. PT AWAKE, ALERT AND ORIENTED TO SELF ONLY. ABLE TO ANSWER QUESTIONS AND FOLLOW COMMANDS. VISIBLE CHEST RISE AND FALL ON ROOM AIR, WITHOUT NOTED DISTRESS. AWAITING PICC LINE NURSE TO ARRIVE FOR PICC LINE PLACEMENT. SITTER AT BEDSIDE. FALL PRECAUTIONS IN PLACE, BED IN LOW POSITION AND BED ALARM ON. CALL LIGHT WITHIN REACH.
--- NOTE | 2019-06-30 19:55 | NUR ---
PODIATRY ARRIVED TO CHANGE PT DRESSINGS AT THIS TIME.
--- NOTE | 2019-06-30 20:45 | NUR ---
PICC LINE PROCEDURE IN PROGRESS WOOD MILLING MACHINE OPERATOR TO ATTEMPT [facility] THERAPY AND RESPIRATORY DRUG AT A LATER TIME
--- NOTE | 2019-06-30 20:45 | NUR ---
PICC LINE PLACED IN RIGHT UPPER ARM.
[2019-06-30] MEDS: ATORVASTATIN 20 MG TAB PO SCH (21:39)
--- NOTE | 2019-06-30 21:50 | NUR ---
PT REFUSING INSULIN INJECTION FOR BLOOD SUGAR 201.
--- NOTE | 2019-06-30 22:10 | NUR ---
PT PULLED OFF SACRAL DRESSING. PT REFUSING FOR NEW DRESSING TO BE PUT ON.
[2019-06-30] MEDS: guaiFENesin 600 MG TABER PO SCH (23:30)
--- NOTE | 2019-07-01 00:10 | NUR ---
PT REFUSED VITALS TO BE TAKEN.
[2019-07-01] MEDS: Z-GUARD PASTE TP SCH ×3 (01:00→13:00)
[2019-07-01] MEDS: PIPERACILLIN/TAZOBACTAM 3.375 GM in DEXTROSE 5% 50 ML IV SCH ×4 (01:19→16:50)
--- NOTE | 2019-07-01 01:19 | NUR ---
ANTIBIOTICS HUNG. PT SLEEPING. BREATHING EQUAL AND UNLABORED. SITTER AT BEDSIDE.
--- NOTE | 2019-07-01 02:00 | NUR ---
ROUNDED ON PT. PT SLEEPING RIGHT LATERAL SIDE. NO VISIBLE SIGNS OF DISTRESS. BREATHING EQUAL AND UNLABORED. SITTER AT BEDSIDE.
--- NOTE | 2019-07-01 04:32 | NUR ---
ROUNDED ON PT. PT SLEEPING LEFT LATERAL SIDE. NO VISIBLE SIGNS OF DISTRESS. SITTER AT BEDSIDE.
--- NOTE | 2019-07-01 04:53 | NUR ---
NILSA INFORMED THAT PT IS REFUSING TO BE CHANGED.
[2019-07-01] MEDS: BLOOD GLUCOSE MONITORING 1 DEV DEV FS SCH ×4 (06:31→21:00)
[2019-07-01] MEDS: INSULIN LISPRO SLIDING SCALE 100 UNITS/ML VIAL SUBQ PRN ×4 (06:35→16:50)
--- NOTE | 2019-07-01 06:59 | NUR ---
PT BLOOD GLUCOSE 485. PT REFUSING INSULIN. RESIDENT MD CAME TO SPEAK WITH PT REGARDING NEED FOR INSULIN. PT CONTINUES TO REFUSE INSULIN ADMINISTRATION. PT ALSO REMOVED DRESSING ON LEFT LEG. PT REFUSING FOR DRESSING TO BE APPLIED.
[2019-07-01] MEDS: ALBUTEROL SULFATE/IPRATROPIU 3 ML SOL IH SCH ×3 (08:09→19:55)
[2019-07-01 08:20] VITALS: BP 90/42
--- NOTE | 2019-07-01 08:29 | NUR ---
RECEIVED HAND OFF REPORT FROM PM RN PT IS ASLEEP IN BED. PT APPEARS STABLE AND IN NO APPARENT DISTRESS. SITTER IS AT BED SIDE LEFT LEG WOUND HAS NO DRESSING ON IT. WAS INFORMED THAT THE PT BLOOD SUGAR WAS [address] BADILLO AND DEYANIRA AT PT BEDSIDE BECAUSE PT IS REFUSING INSULIN. PT WAS RUNNING D51/2NS AT 50 TURNED IVF OFF DUE TO PT HYPERGLYCEMIA AND REFUSING INSULIN. INFORMED DR. MCMILLAN HE STATED HE WILL CHANGE THE ORDERS.
[2019-07-01 08:42] LABS: BASOPHILS # (AUTO) 0.1 K/uL (0.00-0.22); BASOPHILS % (AUTO) 0.9 % (0.0-2.0); EOSINOPHILS # (AUTO) 0.1 K/uL (0-0.4); EOSINOPHILS % (AUTO) 1.5 % (0.0-4.0); HEMOGLOBIN 8.2 g/dL (12.0-18.0); LYMPHOCYTES # (AUTO) 1.5 K/uL (2.0-11.5); LYMPHOCYTES % (AUTO) 19.5 % (20.5-51.1); MEAN CORPUSCULAR HEMOGLOBIN 27 pg (27-31); MEAN CORPUSCULAR HGB CONC 31 g/dL (33-37); MEAN CORPUSCULAR VOLUME 84.7 fL (80-94); MONOCYTES # (AUTO) 0.9 K/uL (0.8-1.0); MONOCYTES % (AUTO) 11.9 % (1.7-9.3); NEUTROPHILS # (AUTO) 4.9 K/uL (1.8-7.7); NEUTROPHILS % (AUTO) 66.2 % (42.2-75.2); PLATELET COUNT (AUTO) 175 K/uL (140-450); RED BLOOD CELL COUNT(AUTO) 3.07 MIL/uL (4.20-6.10); RED CELL DISTRIBUTION WIDTH 20.4 % (11.6-13.7); WHITE BLOOD COUNT (AUTO) 7.4 K/uL (4.8-10.8)
[2019-07-01] MEDS: NICOTINE TRANSD SYS 14 MG/24 HR PATCH TD SCH (09:00)
[2019-07-01] MEDS: LISINOPRIL 5 MG TAB PO SCH (09:00)
[2019-07-01] MEDS: METOPROLOL 25 MG TAB PO SCH ×2 (09:00→21:00)
[2019-07-01] MEDS: ASPIRIN 81 MG TAB.CHEW PO SCH (09:00)
[2019-07-01] MEDS: FAMOTIDINE 20 MG TAB PO SCH ×2 (09:00→20:56)
[2019-07-01] MEDS ORDERED: CHLORHEXADINE GLUC 2% CLOTH TP SCH (09:00)
[2019-07-01] MEDS: FUROSEMIDE 40 MG/4 ML VIAL IVP SCH ×2 (09:00→16:48)
[2019-07-01] MEDS: ASCORBIC ACID 500 MG/5 ML ORASYR PO SCH (09:00)
[2019-07-01] MEDS: POLYETHYLENE GLYCOL 17 GM/PKT PO SCH ×2 (09:00→21:00)
[2019-07-01] MEDS: AMIODARONE 200 MG TAB PO SCH ×2 (09:00→20:56)
[2019-07-01] MEDS: QUEtiapine FUMARATE 25 MG TAB PO SCH ×2 (09:00→20:56)
[2019-07-01] MEDS: SENNA 8.6 MG TAB PO SCH ×2 (09:00→20:56)
[2019-07-01] MEDS: LACTOBACILLUS RHAMNOSUS GG 1 EACH CAP PO SCH (09:00)
[2019-07-01] MEDS: guaiFENesin 600 MG TABER PO SCH ×2 (09:00→21:00)
[2019-07-01] MEDS: RIVAROXABAN 10 MG TAB PO SCH (09:00)
[2019-07-01 09:08] LABS: ANION GAP 7.5 (8-16); CARBON DIOXIDE 27.8 mmol/L (21-32); CREATININE 0.7 mg/dL (0.7-1.3); POTASSIUM 3.3 mmol/L (3.5-5.1)
[2019-07-01 09:37] LABS: MAGNESIUM 1.8 mg/dL (1.8-2.4); PHOSPHORUS 3.1 mg/dL (2.5-4.9)
[2019-07-01] MEDS: NACL 0.9% 500 ML IV SCH (10:20)
--- NOTE | 2019-07-01 10:20 | NUR ---
LAB CALLED PT BLOOD GLUCOSE 579. INFORMED MD DR. MCMILLAN AWARE. STATED TO GIVE 14 UNITS HUMALOG. PT REFUSED INSULIN AND ALL MORNING MEDICATIONS DR. MCMILLAN CAME TO BEDSIDE TO SPEAK TO THE PATIENT CALLED THE PATIENTS SIGNIFICANT OTHER ROSA MONTES DE OCA IN THE CHART. PT SIGNIFICANT OTHER SPOKE TO PT PT DECIDED TO TAKE ALL MEDICATIONS AND INSULIN. WILL CONTINUE TO MONITOR.
[2019-07-01] MEDS: VANCOMYCIN 1,000 MG in DEXTROSE 5% 250 ML IV SCH (12:55)
--- NOTE | 2019-07-01 13:59 | NUR ---
Tire Finisher Note: Group Home Facility placement follow up: I called Aircraft Inspector Radha from [facility] , no answer, left message, in her voicemail greeting she includes their Case Management's phone number , I dialed that number too, no answer, left message. I called and spoke with Madhuri from [facility] told her I wanted to follow up on an inquiry that was previously faxed to their facility by Aircraft Inspector Smita. Madhuri stated she was going to contact their admission coordinator Adrienne and call me back to let me know if they can accept patient or not. She requested I fax inquiry again. I faxed inquiry. Per Kerry from [facility] / , they do not have a contract with [facility], unable to accept patient. I called and spoke with Lorenza from [facility] , she stated they have a contract with [facility]. She requested inquiry. I faxed inquiry. Addendum: 07/01/19 at 1412 by Stacy Anthony SS I called and spoke with Mikaela from [facility] , she stated she is going to try to speak with Josie from their facility and find out if they were able to review inquiry that was faxed to their facility by Aircraft Inspector Smita on 06/28/19. She stated most likely Aircraft Inspector or Tire Finisher will have to call Josie on Wednesday07/03/19.
[2019-07-01] MEDS ORDERED: POTASSIUM CHLORIDE 10 MEQ TABER PO SCH (14:00)
[2019-07-01] MEDS ORDERED: POTASSIUM CHLORIDE 20% 40 MEQ/15 ML UDC PO SCH (14:30)
--- NOTE | 2019-07-01 16:20 | NUR ---
Services Engineer Note: Per Lorenza from [facility] , they might be able to accept patient with snf authorization from health insurance. She requested for one of our Lunchroom Worker to contact her on Wednesday07/03/19. They are not able to accept patient during weekend.
--- NOTE | 2019-07-01 16:21 | NUR ---
CLEANED WOUNDS AND PLACED XEROFORM AND REDRESSED WOUNDS. PT AWAKE IN BED AND COOPERATIVE
[2019-07-01 16:23] VITALS: BP 95/55
--- NOTE | 2019-07-01 18:42 | NUR ---
PT LOOKING FOR HIS WALLET. CALLED PBX THEY HAVE HIS WALLET IN THE SAFE. INFORMED PT THAT THEY HAVE IT HE REQUESTED TO HAVE THE WALLET. INFORMED THE PT HE WILL HAVE TO SIGN A RELEASE OF LIABILITY TO TAKE HIS WALLET; PT AWARE AND WANTS WALLET
--- NOTE | 2019-07-01 19:22 | NUR ---
ENDORSED PT TO PM RN PT AWAKE IN WHEEL CHAIR SITTER AT BEDSIDE. PICC LINE IN PLACE. ALL SAFETY MEASURES IN PLACE
--- NOTE | 2019-07-01 19:23 | NUR ---
RECEIVED REPORT FROM AM NURSE. PT AWAKE, ALERT AND ORIENTED X2. ABLE TO ANSWER QUESTIONS AND FOLLOW COMMANDS. VISIBLE CHEST RISE AND FALL ON ROOM AIR, NO DISTRESS NOTED. SITTER AT BEDSIDE. RIGHT UPPER ARM PICC INTACT AND PATENT. DRESSINGS ON BILATERAL LOWER EXTREMITIES INTACT. FALL PRECAUTIONS IN PLACE. PERSONAL BELONGINGS AT BEDSIDE.
[2019-07-01] MEDS: ATORVASTATIN 20 MG TAB PO SCH (20:56)
--- NOTE | 2019-07-01 20:56 | NUR ---
MEDICATIONS CRUSHED AND PLACED IN APPLESAUCE. PT TOLERATED WELL. HELD LOPRESSOR DUE TO BP 102/51, CONFIRMED WITH RESIDENT MD RON TO HOLD MEDICATION.
--- NOTE | 2019-07-01 21:40 | NUR ---
PT REMOVED SACRAL DRESSING. PT AGREEABLE TO NEW DRESSING. CLEANSED AREA AND APPLIED NEW DRESSING TO SACRAL WOUND.
--- NOTE | 2019-07-01 22:53 | NUR ---
GERMAN MARIE. PT COOPERATIVE WITH STAFF AND FOLLOWING COMMANDS BUT OCCASIONALLY ACCUSES STAFF OF "LYING". SITTER AT BEDSIDE.
[2019-07-01] MEDS ORDERED: VANCOMYCIN 1,000 MG in DEXTROSE 5% 250 ML IV SCH (23:00)
[2019-07-02] VITALS: BP 84/65
--- NOTE | 2019-07-02 00:30 | NUR ---
ROUNDED ON PT. PT SLEEPING IN BED. BREATHING EQUAL AND UNLABORED. SITTER AT BEDSIDE.
[2019-07-02] MEDS: PIPERACILLIN/TAZOBACTAM 3.375 GM in DEXTROSE 5% 50 ML IV SCH ×2 (00:44→05:24)
[2019-07-02] MEDS: Z-GUARD PASTE TP SCH (01:00)
--- NOTE | 2019-07-02 02:35 | NUR ---
ROUNDED ON PT. PT SLEEPING IN RIGHT LATERAL POSITION. NO VISIBLE SIGNS OF DISTRESS. SITTER AT BEDSIDE.
--- NOTE | 2019-07-02 05:25 | NUR ---
MICHAEL MARIE. PT IN BED SLEEPING, VISIBLE CHEST RISE AND FALL ON ROOM AIR. NO VISIBLE SIGNS OF DISTRESS. SITTER AT BEDSIDE.
[2019-07-02] MEDS: BLOOD GLUCOSE MONITORING 1 DEV DEV FS SCH (05:42)
--- NOTE | 2019-07-02 05:50 | NUR ---
DRESSING CHANGED ON RIGHT LEG. PT COOPERATIVE WITH DRESSING CHANGE.
[2019-07-02] MEDS: INSULIN LISPRO SLIDING SCALE 100 UNITS/ML VIAL SUBQ PRN (06:16)
--- NOTE | 2019-07-02 06:16 | NUR ---
INSULIN GIVEN FOR BLOOD GLUCOSE LEVEL 170. PT SITTING UP AT BEDSIDE, ORGANIZING BELONGINGS. NO C/O DISCOMFORT. SITTER AT BEDSIDE. PT IN STABLE CONDITION.
[2019-07-02] MEDS: ALBUTEROL SULFATE/IPRATROPIU 3 ML SOL IH SCH (07:09)
--- NOTE | 2019-07-02 07:25 | NUR ---
RECEIVED HAND OFF REPORT FROM PM RN PT AWAKE IN HIS WHEELCHAIR PT APPEARS STABLE PICC LINE IN PLACE. INFUSING WITH NO SIGNS OF COMPLICATIONS. WILL CONTINUE TO MONITOR
[2019-07-02 08:18] LABS: BASOPHILS # (AUTO) 0.1 K/uL (0.00-0.22); EOSINOPHILS # (AUTO) 0.1 K/uL (0-0.4); EOSINOPHILS % (AUTO) 1.5 % (0.0-4.0); HEMATOCRIT 32.5 % (36-52); HEMOGLOBIN 10.3 g/dL (12.0-18.0); LYMPHOCYTES # (AUTO) 1.6 K/uL (2.0-11.5); LYMPHOCYTES % (AUTO) 21.6 % (20.5-51.1); MEAN CORPUSCULAR HEMOGLOBIN 26 pg (27-31); MEAN CORPUSCULAR HGB CONC 32 g/dL (33-37); MEAN CORPUSCULAR VOLUME 83.3 fL (80-94); MONOCYTES # (AUTO) 0.6 K/uL (0.8-1.0); MONOCYTES % (AUTO) 8.7 % (1.7-9.3); NEUTROPHILS % (AUTO) 67.2 % (42.2-75.2); PLATELET COUNT (AUTO) 239 K/uL (140-450); RED CELL DISTRIBUTION WIDTH 20.3 % (11.6-13.7)
[2019-07-02 08:21] LABS: WHITE BLOOD COUNT (AUTO) 7.4 K/uL (4.8-10.8)
[2019-07-02 08:43] LABS: ANION GAP 10.7 (8-16); CARBON DIOXIDE 29.2 mmol/L (21-32); CREATININE 0.9 mg/dL (0.7-1.3); POTASSIUM 3.9 mmol/L (3.5-5.1)
[2019-07-02 08:45] VITALS: BP 97/61
--- NOTE | 2019-07-02 10:36 | NUR ---
PT LEFT AMA. PT STATED HE NEEDS TO GO PAY RENT AND OTHER BILLS. DR. MCMILLAN. WENT OVER THE RISK AND COMPLICATIONS OF LEAVING. PT SIGNED AMA FORM. REMOVED PT PICC LINE. PT LEFT WITH ALL PERSONAL BELONGINGS.
[2019-07-03] MEDS ORDERED: AMIO400T3 PO (20:27)
[2019-07-03] MEDS ORDERED: INSU100I7 SQ (20:28)
== END 2019-07-02 10:40 | disposition left against medical advice (07) | DRG 720 ==
LOC: MED 19:58 → MMU 23:03 → MIC 06-19 15:20 → MTU 06-26 19:20
PROVIDERS: ADMIT Family Medicine; ATTEND General Practice
PROC: 02HV33Z Insertion of Infusion Device into Superior Vena Cava, Percutaneous Approach (ICD-10-PCS; principal; 2019-06-19)
PROC: B548ZZA Ultrasonography of Superior Vena Cava, Guidance (ICD-10-PCS; 2019-06-19)
PROC: 5A1955Z Respiratory Ventilation, Greater than 96 Consecutive Hours (ICD-10-PCS; 2019-06-20)
PROC: 0BH17EZ Insertion of Endotracheal Airway into Trachea, Via Natural or Artificial Opening (ICD-10-PCS; 2019-06-20)
DX: A41.9 Sepsis, unspecified organism (principal); J96.21 Acute and chronic respiratory failure with hypoxia; I21.9 Acute myocardial infarction, unspecified; J69.0 Pneumonitis due to inhalation of food and vomit; E43 Unspecified severe protein-calorie malnutrition; I50.43 Acute on chronic combined systolic (congestive) and diastolic (congestive) heart failure; G93.41 Metabolic encephalopathy; E83.39 Other disorders of phosphorus metabolism; I42.9 Cardiomyopathy, unspecified; D50.9 Iron deficiency anemia, unspecified; F17.210 Nicotine dependence, cigarettes, uncomplicated; I21.A1 Myocardial infarction type 2; L03.115 Cellulitis of right lower limb; Z68.26 Body mass index [BMI] 26.0-26.9, adult; E87.1 Hypo-osmolality and hyponatremia; E11.69 Type 2 diabetes mellitus with other specified complication; E11.21 Type 2 diabetes mellitus with diabetic nephropathy; E11.51 Type 2 diabetes mellitus with diabetic peripheral angiopathy without gangrene; E11.65 Type 2 diabetes mellitus with hyperglycemia; E78.5 Hyperlipidemia, unspecified; E83.42 Hypomagnesemia; E87.0 Hyperosmolality and hypernatremia; E87.6 Hypokalemia; G89.29 Other chronic pain; I11.0 Hypertensive heart disease with heart failure; I35.0 Nonrheumatic aortic (valve) stenosis; I48.91 Unspecified atrial fibrillation; J44.9 Chronic obstructive pulmonary disease, unspecified; F10.10 Alcohol abuse, uncomplicated; F11.10 Opioid abuse, uncomplicated; D64.9 Anemia, unspecified; E11.621 Type 2 diabetes mellitus with foot ulcer; L97.519 Non-pressure chronic ulcer of other part of right foot with unspecified severity; F19.10 Other psychoactive substance abuse, uncomplicated; K80.20 Calculus of gallbladder without cholecystitis without obstruction; M86.8X7 Other osteomyelitis, ankle and foot; Z71.6 Tobacco abuse counseling; S10.93XA Contusion of unspecified part of neck, initial encounter; X58.XXXA Exposure to other specified factors, initial encounter; B96.5 Pseudomonas (aeruginosa) (mallei) (pseudomallei) as the cause of diseases classified elsewhere; Z53.21 Procedure and treatment not carried out due to patient leaving prior to being seen by health care provider; Z59.0 Homelessness; Z79.01 Long term (current) use of anticoagulants; Z79.891 Long term (current) use of opiate analgesic; Z89.512 Acquired absence of left leg below knee; Z91.19 Patient's noncompliance with other medical treatment and regimen; Y93.89 Activity, other specified; Y92.89 Other specified places as the place of occurrence of the external cause; Y99.8 Other external cause status
CPT/HCPCS: 31500; 36415; 36600; 70450; 71045; 71275; 73590; 73630; 76536; 76705; 76881; 80048; 80053; 80202; 80305; 81001; 82140; 82607; 82728; 82746; 82803; 82948; 83036; 83540; 83605; 83690; 83735; 83880; 84100; 84132; 84134; 84443; 84484; 85025; 85045; 85379; 85610; 85651; 85730; 86140; 86704; 86706; 86708; 86709; 86803; 87040; 87070; 87081; 87086; 87186; 87205; 87340; 89220; 92610; 93005; 93925; 93970; 94003; 94640; 96361; 96365; 96375; 99291; C1751; J0282; J1630; J1642; J1644; J1815; J1885; J1940; J2001; J2060; J2250; J2270; J2405; J2543; J2916; J3010; J3370; J3475; J3480; J3490; J7030; J7060; J7620; Q0092; Q9967

== ENCOUNTER 2019-07-03 14:01 | Inpatient (IN) | payer MEDICAID ==
[~2019-07-03] VITALS: Ht 188 cm; Wt 85.7 kg
[~2019-07-03 14:01] MED LIST: ASPI81CT95 PO; ATOR20TA PO; ATOR20TA40 PO; FAMO20TA13 PO; Foam Dressing TP; INSU100I7 SQ; LACT10CA PO; LISI-424 PO; METO25TA PO; NITR0.4T1 SL; QUET25TA46 PO; RIVA20TA4 PO; VANC1PIG IV; XAR10 PO
--- NOTE | 2019-07-03 14:02 | NUR ---
Tana alfaro in ED - 07/03/19 at 1724 by MMTHEM Patient ROSEANNE MURRIETA from [facility], transferred to bed 10. RN evaluating patient at bedside.
[2019-07-03 14:11] VITALS: BP 109/72
--- NOTE | 2019-07-03 14:22 | NUR ---
PT WHEELCHAIRED TO ER BED 06
--- NOTE | 2019-07-03 14:31 | NUR ---
DR MENA AT BEDSIDE
[2019-07-03] MEDS ORDERED: PIPERACILLIN/TAZOBACTAM 3.375 GM in DEXTROSE 5% 50 ML IV ONE (14:45)
[2019-07-03] MEDS ORDERED: VANCOMYCIN 1,000 MG in DEXTROSE 5% 250 ML IV ONE (14:45)
--- NOTE | 2019-07-03 14:45 | NUR ---
59 Y MALE BY SELF C/O OF INTERMITENT OSTEOMYELITIS X2 YEARS. PT REPORTS INFECTION IS IN RT FOOT. DENIES PAIN. -N/V OR FEVER. LEFT YESTERDAY AMA. PT STATES HE TAKES METHADONE FOR [facility]. 2 OPEN WOUNDS TO PTS R LOWER EXTREMITY: TOP OF R FOOT AND BACK OF LOWER EXTREMITY. PICTURES TAKEN AND DOCUMENTED. BED IS DOWN, LOCKED, BED RAIL X 1, ERMD TO SEE PT. MEDHX:DM, LT BKA, HTN, HLN, A-FIB, CHF RX:SEE MED REC
--- NOTE | 2019-07-03 15:20 | NUR ---
LAB AT BEDSIDE
--- NOTE | 2019-07-03 15:21 | NUR ---
UNABLE TO OBTAIN IV, PER DR MENA PT TO HAVE PICC LINE PLACED
[2019-07-03 15:36] LABS: BASOPHILS # (AUTO) 0.1 K/uL (0.00-0.22); BASOPHILS % (AUTO) 0.6 % (0.0-2.0); EOSINOPHILS % (AUTO) 0.2 % (0.0-4.0); HEMATOCRIT 31.6 % (36-52); HEMOGLOBIN 9.9 g/dL (12.0-18.0); LYMPHOCYTES # (AUTO) 0.6 K/uL (2.0-11.5); LYMPHOCYTES % (AUTO) 6.4 % (20.5-51.1); MEAN CORPUSCULAR HEMOGLOBIN 26 pg (27-31); MEAN CORPUSCULAR HGB CONC 31 g/dL (33-37); MEAN CORPUSCULAR VOLUME 83.8 fL (80-94); MONOCYTES # (AUTO) 0.8 K/uL (0.8-1.0); MONOCYTES % (AUTO) 8.6 % (1.7-9.3); NEUTROPHILS % (AUTO) 84.2 % (42.2-75.2); PLATELET COUNT (AUTO) 266 K/uL (140-450); RED BLOOD CELL COUNT(AUTO) 3.77 MIL/uL (4.20-6.10); RED CELL DISTRIBUTION WIDTH 20.7 % (11.6-13.7); WHITE BLOOD COUNT (AUTO) 9.5 K/uL (4.8-10.8)
[2019-07-03 16:13] LABS: ANION GAP 6.2 (8-16); CARBON DIOXIDE 31.9 mmol/L (21-32); POTASSIUM 4.1 mmol/L (3.5-5.1)
[2019-07-03 16:19] LABS: ALBUMIN 2.3 g/dL (3.4-5.0); TOTAL BILIRUBIN 1.5 mg/dL (0.0-1.0)
--- NOTE | 2019-07-03 16:55 | NUR ---
REQUIRING INR TO BE DRAWN BEFORE PICC ACCESS, DR MENA NOTIFIED
--- NOTE | 2019-07-03 17:01 | NUR ---
NUMBER TO CALL [phone] FOR [facility] LINE
[2019-07-03] MEDS ORDERED: ACETAMINOPHEN 325 MG TAB PO PRN (17:10)
[2019-07-03] MEDS ORDERED: VANCOMYCIN PER PHARMACY MC PRN (17:15)
[2019-07-03 17:25] LABS: PROTHROMBIN TIME 10.6 secs (10.8-13.4)
[2019-07-03 17:40] VITALS: BP 142/70
--- NOTE | 2019-07-03 17:40 | NUR ---
Patient will be admitted to care of [facility]. Admited to [facility]. Will go to room 108A. Belongings list completed. Report to SONAL MEYER. SONAL INSTRUCTED THAT PICC LINE IS TO BE PLACED AFTER INR RESULTS AND THEN RUN ANTIBIOTICS ORDERED. SONAL GIVEN CONSENT FORM FOR PICC LINE
[2019-07-03 18:10] LABS: MAGNESIUM 1.8 mg/dL (1.8-2.4)
[2019-07-03] MEDS ORDERED: VANCOMYCIN 1,000 MG in DEXTROSE 5% 250 ML IV SCH (18:30)
[2019-07-03] MEDS ORDERED: GLUCAGON 1 MG VIAL IVP PRN (19:00)
[2019-07-03] MEDS ORDERED: DEXTROSE 50% 50 ML SYR IVP PRN (19:00)
--- NOTE | 2019-07-03 19:13 | NUR ---
GAVE BEDSIDE REPORT TO KST OPERATOR NURSE. ENDORSED PATIENT IN STABLE CONDITION AND INFORMED HER THAT PICC LINE NURSE WILL BE HERE AROUND 1944, SUPPLIES READY AND ULTRASOUND INFORMED OF TIME PICC LINE NURSE WILL ARRIVE
--- NOTE | 2019-07-03 19:15 | NUR ---
RECEIVED BEDSIDE REPORT FROM DAY SHIFT NURSE. PATIENT IS AWAKE, ALERT, AND COOPERATIVE. RESPIRATION EVEN UNLABORED ON ROOM AIR. NO DISTRESS NOTED. SKIN IS WARM AND DRY. MULTIPLE WOUNDS NOTED. BKA AMPUTATE NOTED. DENIES PAIN. VITALS WERE TAKEN. MRSA SCREEN DONE. PATIENT IS ABLE TO MAKE NEEDS KNOWN. PLAN PF CARE WAS DISCUSSED. ALL SAFETY MEASURES IN PLACE. BED IS AT LOW POSITION. CALL LIGHT WITHIN REACH AND VERBALIZES ITS USE. WILL CONTINUE TO MONITOR.
[2019-07-03] MEDS ORDERED: LIDOCAINE VISCOUS 2% 20 ML UDC PO ONE (19:45)
[2019-07-03] MEDS ORDERED: THERAHONEY GEL 42.5 GM TP PRN (19:45)
[2019-07-03] MEDS ORDERED: ALUMINUM HYD/MAG/SIMETHICONE 30 ML UDC PO ONE (19:45)
[2019-07-03] MEDS ORDERED: DICYCLOMINE HCL LIQUID 10 MG/5 ML UDC PO ONE (19:45)
[2019-07-03] MEDS ORDERED: ALBUTEROL SULFATE/IPRATROPIU 3 ML SOL IH PRN (19:50)
--- NOTE | 2019-07-03 20:00 | NUR ---
INITIAL ASSESSMENT DONE. VITALS WERE TAKEN. PATIENT IN STABLE CONDITION. AWAITING FOR PICC LINE NURSE. WILL CONTINUE TO MONITOR.
--- NOTE | 2019-07-03 20:23 | NUR ---
PICC LINE NURSE DRAKE IS HERE. DID TIME OUT FOR PICC LINE PROCEDURE. WILL CONTINUE TO MONITOR.
[2019-07-03] MEDS ORDERED: AMIO400T3 PO (20:27)
[2019-07-03] MEDS ORDERED: INSU100I7 SQ (20:28)
[2019-07-03] MEDS ORDERED: NITROGLYCERIN 0.4 MG TAB SL PRN (20:30)
--- NOTE | 2019-07-03 20:55 | NUR ---
PICC LINE TO THE RIGHT UPPER ARM NOTED. FLUSHING WELL AND READY TO USE. WILL CONTINUE TO MONITOR.
--- NOTE | 2019-07-03 21:00 | NUR ---
ALL SCHEDULED MEDS WERE GIVEN PER ORDER. NO ASE NOTED. WILL CONTINUE TO MONITOR.
[2019-07-03] MEDS ORDERED: PIPERACILLIN/TAZOBACTAM 3.375 GM VIAL IV ONE (21:05)
[2019-07-03] MEDS: PIPERACILLIN/TAZOBACTAM 3.375 GM in DEXTROSE 5% 50 ML IV SCH ×2 (21:05→23:54)
[2019-07-03] MEDS: NACL 0.9% 1,000 ML IV SCH (21:05)
[2019-07-03] MEDS: BLOOD GLUCOSE MONITORING 1 DEV DEV FS SCH (21:09)
[2019-07-03] MEDS: INSULIN LISPRO SLIDING SCALE 100 UNITS/ML VIAL SUBQ PRN (21:18)
[2019-07-03] MEDS: INSULIN LANTUS 100 UNITS/ML 10 ML VIAL SUBQ SCH (21:19)
[2019-07-03] MEDS: AMIODARONE 200 MG TAB PO SCH (21:20)
[2019-07-03] MEDS: QUEtiapine FUMARATE 25 MG TAB PO SCH (21:21)
[2019-07-03] MEDS: METOPROLOL 25 MG TAB PO SCH (21:21)
[2019-07-03] MEDS: LACTOBACILLUS RHAMNOSUS GG 1 EACH CAP PO SCH (21:21)
[2019-07-03] MEDS: ATORVASTATIN 20 MG TAB PO SCH (21:21)
[2019-07-03] MEDS: FAMOTIDINE 20 MG TAB PO SCH (21:21)
[2019-07-03] MEDS ORDERED: KETOROLAC 30 MG/ML VIAL IM PRN (21:30)
--- NOTE | 2019-07-03 22:15 | NUR ---
PATIENT COMPLAINED OF SACRAL AREA PAIN 07/01. PRN PAIN MED ADMINISTERED PER ORDER. WILL MONITOR FOR ITS EFFECTIVENESS.
--- NOTE | 2019-07-03 22:45 | NUR ---
FIRST DOSE OF VANCOMYCIN 1GM GIVEN PER ORDER AFTER PICC LINE INSERTION. WILL CONTINUE TO MONITOR.
--- NOTE | 2019-07-03 23:50 | NUR ---
ADMINISTERED METHADONE 60MG AND LASIX 40MG PER ORDER. IV ZOSYN NOT ADMINISTERED DUE TO PATIENT JUST RECEIVED ZOSYN AT 2105 AFTER THE INSERTION OF PICC LINE. DR. OAKES IS AWARE OF THE SITUATION AND RECOMMEND TO ADMINISTER THE NEXT DOSE AT 6AM. WILL CONTINUE TO MONITOR.
[2019-07-03] MEDS: FUROSEMIDE 40 MG/4 ML VIAL IVP SCH (23:53)
[2019-07-03] MEDS: METHADONE 10 MG TAB PO SCH (23:53)
[2019-07-04] VITALS: BP 118/66
--- NOTE | 2019-07-04 | NUR ---
VITALS WERE TAKEN. PATIENT IN STABLE CONDITION. NO DISTRESS NOTED. WILL CONTINUE TO MONITOR.
[2019-07-04 01:07] LABS: APPEARANCE,URINE CLEAR (CLEAR); BILIRUBIN,URINE NEGATIVE (NEGATIVE); BLOOD, URINE 1+ (NEGATIVE); COLOR,URINE YELLOW (YELLOW); LEUKOCYTE ESTERASE ,URINE NEGATIVE (NEGATIVE); NITRITE, URINE NEGATIVE (NEGATIVE); PH,URINE 7.5 (5.0-9.0); UGLUCOSE 2+ (NEGATIVE)
[2019-07-04 01:45] LABS: BARBITURATE, URINE NEG. ng/ml (NEG <=200); BENZODIAZEPINE, URINE NEG. ng/mL (NEG <=200); CANNABINOID, URINE NEG. ng/mL (NEG <=50); COCAINE, URINE NEG. ng/mL (NEG <=300); OPIATE, URINE POS. ng/mL (NEG <=2000); PHENCYCLIDINE SCREEN,URINE NEG. ng/mL (NEG <=25)
[2019-07-04] MEDS ORDERED: NACL 0.9% IRR 250 ML BOTTLE IR PRN (01:50)
[2019-07-04] MEDS ORDERED: NON ADHERENT DRESSING TP PRN (01:50)
--- NOTE | 2019-07-04 02:00 | NUR ---
PATIENT TRANSFERRED TO TELEMETRY.
[2019-07-04 04:00] VITALS: BP 95/47
--- NOTE | 2019-07-04 04:00 | NUR ---
CHECKED PATIENT. PATIENT SLEEPING RESPIRATION EVEN UNLABORED ON ROOM AIR. NO DISTRESS NOTED. WILL CONTINUE TO MONITOR.
[2019-07-04 04:02] LABS: RBC,URINE 11-20 (MOD) /HPF (0-5); WBC,URINE 0-5 /HPF (0-5)
[2019-07-04] MEDS: PIPERACILLIN/TAZOBACTAM 3.375 GM in DEXTROSE 5% 50 ML IV SCH ×4 (05:00→23:22)
[2019-07-04] MEDS: INSULIN LISPRO SLIDING SCALE 100 UNITS/ML VIAL SUBQ PRN ×4 (06:22→21:40)
[2019-07-04] MEDS: BLOOD GLUCOSE MONITORING 1 DEV DEV FS SCH ×4 (06:24→21:29)
[2019-07-04] MEDS: ALBUTEROL SULFATE/IPRATROPIU 3 ML SOL IH SCH ×3 (06:54→20:24)
--- NOTE | 2019-07-04 07:16 | NUR ---
ENDORSED PATIENT TO DAY SHIFT NURSE FOR CONTINUITY OF CARE. PATIENT IN STABLE CONDITION.
--- NOTE | 2019-07-04 07:18 | NUR ---
RECEIVED REPORT FROM NIGHT RN. PT RESTING IN BED. AAOX4, NO S/S OF ACUTE DISTRESS. PT DENIES PAIN. RIGHT UPPER ARM PICC LINE NOTED. PATENT AND INTACT. CALL LIGHT WITHIN REACH. SAFETY MEASURES ENSURED. WILL CONTINUE TO MONITOR.
[2019-07-04 07:38] LABS: ANION GAP 11.1 (8-16); CARBON DIOXIDE 27.9 mmol/L (21-32); CREATININE 0.9 mg/dL (0.7-1.3)
[2019-07-04 07:43] LABS: CHOL/HDL RATIO 3.4 (1-4.5)
[2019-07-04 08:00] VITALS: BP 109/40
[2019-07-04] MEDS ORDERED: VANCOMYCIN 1,000 MG in DEXTROSE 5% 250 ML IV SCH (08:15)
--- NOTE | 2019-07-04 08:36 | NUR ---
PATIENT HAS BEEN SCREENED AND CATEGORIZED HIGH NUTRITION RISK. PATIENT WILL BE SEEN WITHIN 1-2 DAYS OF ADMISSION. 07/04/19-07/05/[address]
[2019-07-04] MEDS: LACTOBACILLUS RHAMNOSUS GG 1 EACH CAP PO SCH ×4 (08:45→21:29)
[2019-07-04] MEDS: ASPIRIN 81 MG TAB.CHEW PO SCH (08:45)
[2019-07-04] MEDS: AMIODARONE 200 MG TAB PO SCH ×2 (08:46→21:30)
[2019-07-04] MEDS: QUEtiapine FUMARATE 25 MG TAB PO SCH ×2 (08:46→21:30)
[2019-07-04] MEDS: FAMOTIDINE 20 MG TAB PO SCH ×2 (08:47→21:30)
[2019-07-04] MEDS: RIVAROXABAN 10 MG TAB PO SCH (08:47)
[2019-07-04] MEDS: FUROSEMIDE 40 MG/4 ML VIAL IVP SCH (08:48)
[2019-07-04] MEDS: NICOTINE TRANSD SYS 14 MG/24 HR PATCH TD SCH (08:49)
[2019-07-04] MEDS: CHLORHEXADINE GLUC 2% CLOTH TP SCH (08:49)
[2019-07-04] MEDS: FOAM DRESSING TP SCH (08:49)
[2019-07-04] MEDS: METOPROLOL 25 MG TAB PO SCH ×2 (08:50→21:00)
[2019-07-04] MEDS: LISINOPRIL 5 MG TAB PO SCH (08:50)
[2019-07-04] MEDS ORDERED: RIVAROXABAN 10 MG TAB PO SCH (09:00)
[2019-07-04] MEDS: VANCOMYCIN 1,000 MG in DEXTROSE 5% 250 ML IV SCH ×2 (09:16→21:32)
--- NOTE | 2019-07-04 10:51 | NUR ---
PT RESTING IN BED. NO S/S OF ACUTE DISTRESS. PT DENIES PAIN. CALL LIGHT WITHIN REACH. SAFETY MEASURES ENSURED. WILL CONTINUE TO MONITOR.
[2019-07-04 10:52] LABS: BASOPHILS % (AUTO) 0.3 % (0.0-2.0); EOSINOPHILS # (AUTO) 0.1 K/uL (0-0.4); EOSINOPHILS % (AUTO) 1.1 % (0.0-4.0); HEMATOCRIT 27.8 % (36-52); HEMOGLOBIN 8.7 g/dL (12.0-18.0); LYMPHOCYTES # (AUTO) 1.7 K/uL (2.0-11.5); LYMPHOCYTES % (AUTO) 25.5 % (20.5-51.1); MEAN CORPUSCULAR HEMOGLOBIN 27 pg (27-31); MEAN CORPUSCULAR HGB CONC 32 g/dL (33-37); MONOCYTES # (AUTO) 0.9 K/uL (0.8-1.0); NEUTROPHILS % (AUTO) 60.1 % (42.2-75.2); PLATELET COUNT (AUTO) 204 K/uL (140-450); RED BLOOD CELL COUNT(AUTO) 3.27 MIL/uL (4.20-6.10); RED CELL DISTRIBUTION WIDTH 21.3 % (11.6-13.7); WHITE BLOOD COUNT (AUTO) 6.6 K/uL (4.8-10.8)
[2019-07-04 11:10] VITALS: BP 98/52
--- NOTE | 2019-07-04 11:32 | NUR ---
Left a message for call back to medicare coordinator Mallika Chávez .
--- NOTE | 2019-07-04 13:18 | NUR ---
Called vocational case manager Mallika Chávez and left a message to call me back.
--- NOTE | 2019-07-04 13:22 | NUR ---
Spoke with Radha PIERRE [facility]. Informed Radha that I have left 3 messages for Mallika PIERRE and she hasn't called me back. Radha will follow up with Mallika and she will call me back.
[2019-07-04] MEDS ORDERED: ASCORBIC ACID 500 MG TAB PO SCH (13:34)
--- NOTE | 2019-07-04 14:01 | NUR ---
DC Planning: Faxed packet to [facility] for SNF placement.
--- NOTE | 2019-07-04 14:39 | NUR ---
07/04/19 RD INITIAL ASSESSMENT COMPLETED PLEASE REFER TO NUTRITION ASSESSMENT UNDER CARE ACTIVITY FOR ESTIMATED NUTRITIONAL NEEDS. 1. CONTINUE CCHO 60GM CARDIAC MECHANICAL SOFT DIET TOLERATED 2. RECOMMEND VITAMIN C [address] PROVIDED CHF NUTRITION THERAPY EDUCATION. MAY BENEFIT FROM REINFORCEMENT ON FOLLOW UP VISIT 4. RD TO FOLLOW-UP 3-5 DAYS, MODERATE RISK COLT RAI, RD
--- NOTE | 2019-07-04 14:46 | NUR ---
Called rn primary care Adriane and rn primary care Heber . Both no answer. Left a message to be called back.
[2019-07-04 16:00] VITALS: BP 105/54
--- NOTE | 2019-07-04 16:21 | NUR ---
PT SITTING IN WHEELCHAIR AT BEDSIDE. NO S/S OF ACUTE DISTRESS. PT DENIES PAIN. CALL LIGHT WITHIN REACH SAFETY MEASURES ENSURED. WILL CONTINUE TO MONITOR.
[2019-07-04] MEDS: NACL 0.9% 1,000 ML IV SCH (16:34)
--- NOTE | 2019-07-04 19:20 | NUR ---
REPORT RECEIVED FROM AM NURSE AT BEDSIDE. PT IN STABLE CONDITION. AAOX4. INTRODUCED SELF TO PT. BOARD UPDATED. NO COMPLAINTS OF PAIN. NO SOB. AFEBRILE. PT HAS A WHEELCHAIR THAT HE IS ABLE TO TRANSFER HIMSELF TO. IV SITE R UA PICC LINE RUNNING NS@20ML/HR PATENT AND INTACT. SKIN WARM, DRY, AND NOT INTACT DUE TO MULTIPLE WOUNDS. BED LOCKED IN LOW POSITION. CALL SMITH WITHIN REACH. SAFETY PRECAUTION IN PLACE. ALL NEEDS MET AT THIS TIME.
[2019-07-04 20:00] VITALS: BP 98/51
--- NOTE | 2019-07-04 20:33 | NUR ---
RECEIVED PATIENT ON ROOM AIR, PULSE OX 98%. SCHEDULED BREATHING TREATMENT ADMINISTERED. TOLERATED TX WELL WITHOUT ADVERSE SIDE EFFECTS. PATIENT PERFORMED INCENTIVE SPIROMETER WITH EXCELLENT EFFORT. NO ACUTE RESPIRATORY DISTRESS NOTED AT THIS TIME. WILL CONTINUE TO MONITOR.
[2019-07-04] MEDS: METHADONE 10 MG TAB PO SCH (21:00)
[2019-07-04] MEDS: ATORVASTATIN 20 MG TAB PO SCH (21:29)
--- NOTE | 2019-07-04 21:29 | NUR ---
CHIKISO HUNG AND RUNNING. CARDORONE, CULTURELLE, LIPITOR, PEPCID, AND SEROQUEL GIVEN PO. LOPRESSOR HELD DUE TO LOW BP. METHADONE REFUSED. NOTIFIED OF BOTH MEDICATIONS. BS 254. 6 UNITS OF HUMALOG GIVEN. LANTUS 20 UNITS GIVEN. PT TOLERATED WELL.
[2019-07-04] MEDS: INSULIN LANTUS 100 UNITS/ML 10 ML VIAL SUBQ SCH (21:41)
--- NOTE | 2019-07-04 23:22 | NUR ---
MICHAEL HUNG AND RUNNING. PT TOLERATING WELL.
[2019-07-05] VITALS: BP 115/63
--- NOTE | 2019-07-05 01:30 | NUR ---
PT SLEEPING COMFORTABLY IN BED. NO S/S OF DISTRESS NOTED. NO COMPLAINTS OF PAIN. NO SOB. AFEBRILE. WILL CONTINUE TO MONITOR.
--- NOTE | 2019-07-05 03:35 | NUR ---
PT AWAKE AND ALERT WATCHING TV. NO S/S OF DISTRESS NOTED. NO COMPLAINTS OF PAIN. NO SOB. AFEBRILE. WILL CONTINUE TO MONITOR.
[2019-07-05 04:00] VITALS: BP 147/66
[2019-07-05] MEDS: PIPERACILLIN/TAZOBACTAM 3.375 GM in DEXTROSE 5% 50 ML IV SCH ×4 (05:09→23:30)
--- NOTE | 2019-07-05 05:09 | NUR ---
MICHAEL HUNG AND RUNNING. PT TOLERATING WELL.
[2019-07-05] MEDS: BLOOD GLUCOSE MONITORING 1 DEV DEV FS SCH ×4 (05:35→20:06)
--- NOTE | 2019-07-05 05:35 | NUR ---
BS 178. 2 UNITS OF HUMALOG GIVEN. PT TOLERATED WELL.
[2019-07-05] MEDS: INSULIN LISPRO SLIDING SCALE 100 UNITS/ML VIAL SUBQ PRN ×4 (05:38→20:14)
[2019-07-05] MEDS: ALBUTEROL SULFATE/IPRATROPIU 3 ML SOL IH SCH ×3 (06:00→20:23)
--- NOTE | 2019-07-05 06:20 | NUR ---
PT SLEEPING COMFORTABLY BUT AROUSABLE. NO S/S OF DISTRESS NOTED. RESPIRATIONS EVEN, UNLABORED, AND WNL. WILL CONTINUE TO MONITOR.
--- NOTE | 2019-07-05 07:25 | NUR ---
Received bedside change of shift report from PM nurse. Patient A/Ox4 and able to make needs known. Vitals are stable and No SOB or signs of distress noted. On room air with clear lung sounds throughout. Double lumen PICC line on right upper arm. PICC line dressing and insertion site dry, patent, and intact; running IVF. Sacral wound with dressing dry and intact. Right lower leg/foot dressing dry and intact. History of Left BKA. Left leg dressing dry/intact and located on the distal end. Remainder of skin warm, dry, and intact with cap refill <3sec. Bowel sounds active. Urine clear sheeba color with patient using bedside urinal Bed in semi fowlers low position, call light within reach. Will continue to monitor throughout day shift.
[2019-07-05 08:00] VITALS: BP 117/64
[2019-07-05] MEDS: LACTOBACILLUS RHAMNOSUS GG 1 EACH CAP PO SCH ×4 (09:00→20:15)
[2019-07-05] MEDS: LISINOPRIL 5 MG TAB PO SCH (09:00)
[2019-07-05] MEDS ORDERED: VANCOMYCIN 1,000 MG VIAL ONE (09:08)
[2019-07-05] MEDS: ASCORBIC ACID 500 MG TAB PO SCH (09:15)
[2019-07-05] MEDS: FUROSEMIDE 40 MG/4 ML VIAL IVP SCH (09:15)
[2019-07-05] MEDS: ASPIRIN 81 MG TAB.CHEW PO SCH (09:16)
[2019-07-05] MEDS: RIVAROXABAN 10 MG TAB PO SCH (09:16)
[2019-07-05] MEDS: QUEtiapine FUMARATE 25 MG TAB PO SCH ×2 (09:17→20:03)
[2019-07-05] MEDS: AMIODARONE 200 MG TAB PO SCH ×2 (09:17→20:03)
[2019-07-05] MEDS: METOPROLOL 25 MG TAB PO SCH ×2 (09:18→20:15)
[2019-07-05] MEDS: FAMOTIDINE 20 MG TAB PO SCH ×2 (09:18→20:03)
[2019-07-05] MEDS: CHLORHEXADINE GLUC 2% CLOTH TP SCH (09:20)
[2019-07-05] MEDS: NICOTINE TRANSD SYS 14 MG/24 HR PATCH TD SCH (09:23)
[2019-07-05 09:26] LABS: BASOPHILS # (AUTO) 0.1 K/uL (0.00-0.22); EOSINOPHILS # (AUTO) 0.1 K/uL (0-0.4); EOSINOPHILS % (AUTO) 1.3 % (0.0-4.0); HEMATOCRIT 27.4 % (36-52); HEMOGLOBIN 8.7 g/dL (12.0-18.0); LYMPHOCYTES # (AUTO) 1.2 K/uL (2.0-11.5); MEAN CORPUSCULAR HEMOGLOBIN 27 pg (27-31); MEAN CORPUSCULAR HGB CONC 32 g/dL (33-37); MEAN CORPUSCULAR VOLUME 84.3 fL (80-94); MONOCYTES # (AUTO) 0.7 K/uL (0.8-1.0); MONOCYTES % (AUTO) 12.4 % (1.7-9.3); NEUTROPHILS # (AUTO) 3.8 K/uL (1.8-7.7); NEUTROPHILS % (AUTO) 64.3 % (42.2-75.2); PLATELET COUNT (AUTO) 212 K/uL (140-450); RED BLOOD CELL COUNT(AUTO) 3.25 MIL/uL (4.20-6.10); RED CELL DISTRIBUTION WIDTH 20.8 % (11.6-13.7); WHITE BLOOD COUNT (AUTO) 5.9 K/uL (4.8-10.8)
--- NOTE | 2019-07-05 09:26 | NUR ---
SCHEDULED MEDICATIONS DUE GIVEN. CONDITION UNCHANGED. WILL CONTINUE MONITOR.
--- NOTE | 2019-07-05 10:00 | NUR ---
GAVE SCHEDULED MEDS, VITALS ARE STABLE, AND NO SIGNS OF DISTRESS NOR SOB ARE NOTED AT THIS. PATIENT DID NOT NEED ANYTHING ELSE AT THIS TIME. WILL CONTINUE TO MONITOR.
[2019-07-05 10:13] LABS: MAGNESIUM 1.6 mg/dL (1.8-2.4); PHOSPHORUS 2.9 mg/dL (2.5-4.9)
[2019-07-05 10:15] LABS: ANION GAP 7.9 (8-16); CARBON DIOXIDE 30.6 mmol/L (21-32); CREATININE 0.9 mg/dL (0.7-1.3); POTASSIUM 3.5 mmol/L (3.5-5.1)
[2019-07-05] MEDS ORDERED: METHADONE 10 MG TAB PO SCH (10:30)
[2019-07-05 12:00] VITALS: BP 102/57
--- NOTE | 2019-07-05 13:00 | NUR ---
GAVE SCHEDULED MEDS, VITALS ARE STABLE, AND NO SIGNS OF DISTRESS NOR SOB ARE NOTED AT THIS. PATIENT EATING LUNCH AND DID NOT NEED ANYTHING AT THIS TIME. WILL CONTINUE TO MONITOR.
--- NOTE | 2019-07-05 13:23 | NUR ---
WOUND CARE EVALUATION NOTE: PT. LEFT AMA ON 07/02/19 AND READMITTED 07/03/2019 WITH UN-STAGEABLE PRESSURE INJURY TO SACRALCOCCYX. PT. INSISTED TO REMOVE DRESSING TO SACRALCOCCYX AREA, RISK AND BENEFITS EXPLAINED.RIGHT LE SKIN ASSESSMENT NOT DONE, IT WAS ASSESSED AND TREATED BY PODIATRY WITH IN HOUSE FOLLOW UP. INTEGUMENTARY: -SACRALCOCCYX UN-STAGEABLE PRESSURE INJURY, 7X6CM WOUND BED 100% BROWN AND YELLOW ESCHAR, BUTTERFLY SHAPE, DRY, NO ODOR, PERIWOUND SKIN PURPLE IN COLOR AND INTACT. PAIN 0/10 -LEFT BKA STUMP HEALED SCARS -RIGHT LOWER LEG DRESSING CHANGED BY PODIATRY. DRESSING DRY CLEAN AND IN PLACE. RECOMMENDATION: -PAINT SACRALCOCCYX WITH BETADINE BID AND LEAVE IT OPEN TO AIR -TURN AND REPOSITION PATIENT Q 2H -ASSESS AND MONITOR SKIN CONDITION DURING POSITION CHANGE -OFFLOAD BILATERAL HEELS BY PLACING PILLOWS UNDER CALVES AT ALL TIMES, UNLESS OTHERWISE CONTRAINDICATED -PRESSURE REDISTRIBUTION BY PLACING PILLOWS AND OFFLOADING SACRALCOCCYX -KEEP SKIN CLEAN AND DRY AT ALL TIMES. PLEASE CONTACT WOUND CARE NURSE FOR ANY QUESTION AND CHANGE OF SKIN CONDITION.
--- NOTE | 2019-07-05 14:00 | NUR ---
GAVE SCHEDULED MEDS, VITALS ARE STABLE, AND NO SIGNS OF DISTRESS NOR SOB ARE NOTED AT THIS. GAVE PATIENT JELLO AND CRACKERS.PATIENT DID NOT NEED ANYTHING ELSE AT THIS TIME. WILL CONTINUE TO MONITOR.
[2019-07-05] MEDS: VANCOMYCIN 1,250 MG in DEXTROSE 5% 250 ML IV SCH (14:11)
--- NOTE | 2019-07-05 15:30 | NUR ---
PATIENT SITTING IN BED COMFORTABLY. NO DISTRESS NOTED. CONDITION UNCHANGED. WILL CONTINUE TO MONITOR.
[2019-07-05 16:00] VITALS: BP 106/60
[2019-07-05] MEDS ORDERED: MAG SULF 2000 MG/WATER PREMIX 50 ML IV SCH (16:00)
[2019-07-05] MEDS ORDERED: GAUZE TP PRN (16:20)
--- NOTE | 2019-07-05 16:30 | NUR ---
GAVE SCHEDULED MEDS, VITALS ARE STABLE, AND NO SIGNS OF DISTRESS NOR SOB ARE NOTED AT THIS. WOUND CARE TO EXTREMITIES AND SACRAL AREA WAS PERFORMED AT THIS TIME. PATIENT DID NOT NEED ANYTHING ELSE AT THIS TIME. WILL CONTINUE TO MONITOR.
[2019-07-05] MEDS: NACL 0.9% 1,000 ML IV SCH (17:29)
--- NOTE | 2019-07-05 19:20 | NUR ---
GAVE REPORT TO [employer] NURSE FOR CONTINUITY OF CARE. PATIENT IN STABLE CONDITION.
--- NOTE | 2019-07-05 19:21 | NUR ---
REPORT RECEIVED FROM AM NURSE AT BEDSIDE. PT IN STABLE CONDITION. AAOX4. INTRODUCED SELF TO PT. BOARD UPDATED. NO COMPLAINTS OF PAIN. NO SOB. AFEBRILE. PT USES A WHEELCHAIR AND IS ABLE TO TRANSFER HIMSELF ONTO HIS CHAIR FROM BED. IV SITE R UA PICC LINE DOUBLE LUMEN RUNNING NS@20ML/HR PATENT AND INTACT. SKIN WARM, DRY, AND NON-INTACT DUE TO MULTIPLE OPEN WOUNDS AND A SACRAL WOUND. BED LOCKED IN LOW POSITION. CALL SMTIH WITHIN REACH. SAFETY PRECAUTION IN PLACE. ALL NEEDS MET AT THIS TIME.
[2019-07-05 20:00] VITALS: BP 97/72
[2019-07-05] MEDS: ATORVASTATIN 20 MG TAB PO SCH (20:03)
--- NOTE | 2019-07-05 20:03 | NUR ---
CORDARONE, CULTURELLE, LIPITOR, PEPCID, AND SEROQUEL GIVEN PO. BS 254. 6 UNITS OF HUMALOG GIVEN. 20 UNITS OF LANTUS GIVEN SUBQ. PT TOLERATED WELL.
[2019-07-05] MEDS: INSULIN LANTUS 100 UNITS/ML 10 ML VIAL SUBQ SCH (20:14)
--- NOTE | 2019-07-05 20:26 | NUR ---
RECEIVED PATIENT ON ROOM AIR, PULSE OX SAT 99%. PATIENT REFUSED SCHEDULED BREATHING TREATMENT AT THIS TIME. PATIENT DENIES SOB AND IN NO RESPIRATORY DISTRESS. WILL CONTINUE TO MONITOR.
--- NOTE | 2019-07-05 21:50 | NUR ---
PT AWAKE AND ALERT WATCHING TV. NO S/S OF DISTRESS NOTED. WILL CONTINUE TO MONITOR.
--- NOTE | 2019-07-05 23:30 | NUR ---
MICHAEL HUNG AND RUNNING. PT TOLERATING WELL.
[2019-07-06] VITALS: BP 95/45
[2019-07-06] MEDS: VANCOMYCIN 1,250 MG in DEXTROSE 5% 250 ML IV SCH ×2 (00:31→14:22)
--- NOTE | 2019-07-06 00:31 | NUR ---
CHIKISO HUNG AND RUNNING. PT TOLERATING WELL. SACRAL WOUND GAUZED AND CLEANED WITH BETADINE. LEFT OPEN TO AIR ORDERED.
[2019-07-06] MEDS: GAUZE TP SCH ×2 (00:32→13:11)
--- NOTE | 2019-07-06 02:15 | NUR ---
PT SLEEPING COMFORTABLY IN BED BUT AROUSABLE. NO S/S OF DISTRESS NOTED. NO COMPLAINTS OF PAIN. NO SOB. AFEBRILE. WILL CONTINUE TO MONITOR.
[2019-07-06 04:00] VITALS: BP 104/52
--- NOTE | 2019-07-06 04:10 | NUR ---
PT AWAKE AND ALERT WATCHING TV. NO S/S OF DISTRESS NOTED. RESPIRATIONS EVEN, UNLABORED, AND WNL. WILL CONTINUE TO MONITOR.
[2019-07-06] MEDS: PIPERACILLIN/TAZOBACTAM 3.375 GM in DEXTROSE 5% 50 ML IV SCH ×4 (05:01→23:17)
--- NOTE | 2019-07-06 05:01 | NUR ---
MICHAEL HUNG AND RUNNING. PT TOLERATING WELL.
[2019-07-06] MEDS: BLOOD GLUCOSE MONITORING 1 DEV DEV FS SCH ×4 (05:08→21:53)
--- NOTE | 2019-07-06 05:08 | NUR ---
BS 169. 2 UNITS OF HUMALOG GIVEN.
[2019-07-06] MEDS: INSULIN LISPRO SLIDING SCALE 100 UNITS/ML VIAL SUBQ PRN ×4 (05:09→22:01)
--- NOTE | 2019-07-06 06:05 | NUR ---
PT IN STABLE CONDITION. AAOX4.
[2019-07-06] MEDS: ALBUTEROL SULFATE/IPRATROPIU 3 ML SOL IH SCH ×3 (07:14→19:00)
--- NOTE | 2019-07-06 07:20 | NUR ---
RECEIVED REPORT FROM SPINDLE CARVER NURSE. PATIENT LYING DOWN IN BED SLEEPING, AROUSABLE BY VOICE. NO DISTRESS NOTED. DENIES ANY PAIN. RESPIRATIONS EVEN, UNLABORED, ON ROOM AIR. RUARM PICC LINE INTACT, PATENT, AND INFUSING IVF PER MD ORDERS. ABDOMEN SOFT, NON-DISTENDED. AAOX4, CALM, COOPERATIVE, SKIN COLOR APPROPRIATE TO ETHNICITY. LEFT BKA WITH STUMP WOUND, DRESSING DRY AND INTACT. RLE WOUND AND RIGHT FOOT WOUND NOTED, DRESSING DRY AND INTACT. REVIEWED PLAN OF CARE WITH PATIENT. PATIENT VERBALIZED UNDERSTANDING. SAFETY MEASURES IN PLACE, CALL LIGHT WITHIN REACH. WILL CONTINUE TO MONITOR.
[2019-07-06 07:45] LABS: ANION GAP 9.9 (8-16); CARBON DIOXIDE 28.6 mmol/L (21-32); CREATININE 0.8 mg/dL (0.7-1.3); POTASSIUM 3.5 mmol/L (3.5-5.1)
[2019-07-06 07:48] LABS: BASOPHILS % (AUTO) 0.7 % (0.0-2.0); EOSINOPHILS # (AUTO) 0.1 K/uL (0-0.4); HEMATOCRIT 27.2 % (36-52); HEMOGLOBIN 8.6 g/dL (12.0-18.0); LYMPHOCYTES # (AUTO) 1.4 K/uL (2.0-11.5); LYMPHOCYTES % (AUTO) 22.3 % (20.5-51.1); MEAN CORPUSCULAR HEMOGLOBIN 27 pg (27-31); MEAN CORPUSCULAR HGB CONC 32 g/dL (33-37); MEAN CORPUSCULAR VOLUME 84.5 fL (80-94); MONOCYTES # (AUTO) 0.7 K/uL (0.8-1.0); MONOCYTES % (AUTO) 11.4 % (1.7-9.3); NEUTROPHILS # (AUTO) 4.1 K/uL (1.8-7.7); NEUTROPHILS % (AUTO) 63.6 % (42.2-75.2); PLATELET COUNT (AUTO) 235 K/uL (140-450); RED BLOOD CELL COUNT(AUTO) 3.22 MIL/uL (4.20-6.10); RED CELL DISTRIBUTION WIDTH 21.6 % (11.6-13.7); WHITE BLOOD COUNT (AUTO) 6.4 K/uL (4.8-10.8)
[2019-07-06 07:50] LABS: MAGNESIUM 1.8 mg/dL (1.8-2.4); PHOSPHORUS 2.7 mg/dL (2.5-4.9)
[2019-07-06 08:00] VITALS: BP 105/55
[2019-07-06] MEDS: LISINOPRIL 5 MG TAB PO SCH (09:00)
[2019-07-06] MEDS ORDERED: FOAM DRESSING TP SCH (09:00)
[2019-07-06] MEDS: LACTOBACILLUS RHAMNOSUS GG 1 EACH CAP PO SCH ×4 (09:00→21:53)
[2019-07-06] MEDS: METOPROLOL 25 MG TAB PO SCH ×2 (09:00→21:53)
[2019-07-06] MEDS: RIVAROXABAN 10 MG TAB PO SCH (09:47)
[2019-07-06] MEDS: FAMOTIDINE 20 MG TAB PO SCH ×2 (09:49→21:53)
[2019-07-06] MEDS: METHADONE 10 MG TAB PO SCH (09:49)
[2019-07-06] MEDS: AMIODARONE 200 MG TAB PO SCH ×2 (09:50→21:54)
[2019-07-06] MEDS: ASCORBIC ACID 500 MG TAB PO SCH (09:50)
[2019-07-06] MEDS: FUROSEMIDE 40 MG/4 ML VIAL IVP SCH (09:50)
--- NOTE | 2019-07-06 09:50 | NUR ---
PATIENT LYING DOWN IN BED SLEEPING, AROUSABLE BY VOICE. NO DISTRESS NOTED. DENIES ANY PAIN. SCHEDULED MEDICATIONS DUE GIVEN. WILL CONTINUE TO MONITOR.
[2019-07-06] MEDS: NICOTINE TRANSD SYS 14 MG/24 HR PATCH TD SCH (09:51)
[2019-07-06] MEDS: QUEtiapine FUMARATE 25 MG TAB PO SCH ×2 (09:51→21:00)
[2019-07-06] MEDS: ASPIRIN 81 MG TAB.CHEW PO SCH (09:51)
[2019-07-06] MEDS: CHLORHEXADINE GLUC 2% CLOTH TP SCH (09:55)
--- NOTE | 2019-07-06 12:00 | NUR ---
PATIENT SITTING IN BED WITH LUNCH TRAY IN FRONT. NO DISTRESS NOTED. CONDITION UNCHANGED. WILL CONTINUE TO MONITOR.
[2019-07-06] MEDS: DRY DRESSING TP SCH (13:10)
--- NOTE | 2019-07-06 14:27 | NUR ---
PATIENT SITTING DOWN IN BED WATCHING TV. NO DISTRESS NOTED. DENIES ANY PAIN. SCHEDULED MEDICATIONS DUE GIVEN. WILL CONTINUE TO MONITOR.
[2019-07-06 16:00] VITALS: BP 92/56
--- NOTE | 2019-07-06 16:47 | NUR ---
LATE ENTRY: CONTACTED IGNACIO POPE AT [phone], NO ANSWER. LEFT VOICE MESSAGE.
[2019-07-06] MEDS: NACL 0.9% 1,000 ML IV SCH ×2 (17:08→23:17)
--- NOTE | 2019-07-06 17:19 | NUR ---
PATIENT SITTING DOWN IN WHEELCHAIR AT BEDSIDE WATCHING TV. NO DISTRESS NOTED. DENIES ANY PAIN. SCHEDULED MEDICATIONS DUE GIVEN. WILL CONTINUE TO MONITOR.
--- NOTE | 2019-07-06 19:25 | NUR ---
GAVE REPORT TO LITERACY TUTOR NURSE FOR CONTINUITY OF CARE. PATIENT IN STABLE CONDITION.
--- NOTE | 2019-07-06 19:30 | NUR ---
received endorsement from AM shift RN; patient A/Ox4, able to make needs known, Montenegrin speaking, on bedrest. Patient watching TV; introduced self, updated board. No SOB or distress noted, on room air. IV site on right upper arm PICC line double lumen, running IVF at 20mL/hr. Skin non-intact; BKA and multiple wounds noted on RLE and has a sacral wound. Bed in the lowest position, call light within reach. Initial assessment done. Will continue to monitor.
--- NOTE | 2019-07-06 19:31 | NUR ---
PT REFUSED HHN TX. PT SAID HE DOESN'T NEED ONE. NO SOB OR DISTRESS NOTED. ON ROOM AIR SPO2 97%. PT AWAKE AND ALERT WATCHING TV.WILL CONTINUE TO MONITOR.
[2019-07-06] MEDS: ATORVASTATIN 20 MG TAB PO SCH (21:53)
[2019-07-06] MEDS: INSULIN LANTUS 100 UNITS/ML 10 ML VIAL SUBQ SCH (21:58)
--- NOTE | 2019-07-06 21:58 | NUR ---
Due meds given, tolerated well.
[2019-07-07] VITALS: BP 120/68
--- NOTE | 2019-07-07 00:10 | NUR ---
Vitals taken, no distress noted.
[2019-07-07] MEDS: VANCOMYCIN 1,250 MG in DEXTROSE 5% 250 ML IV SCH ×2 (00:34→14:12)
[2019-07-07] MEDS: GAUZE TP SCH ×2 (00:36→13:57)
--- NOTE | 2019-07-07 02:05 | NUR ---
Checks made; patient asleep, eyes closed, visible chest rise and fall noted.
--- NOTE | 2019-07-07 04:20 | NUR ---
Rounds done; no distress noted.
[2019-07-07] MEDS: PIPERACILLIN/TAZOBACTAM 3.375 GM in DEXTROSE 5% 50 ML IV SCH ×3 (05:30→17:04)
[2019-07-07] MEDS: BLOOD GLUCOSE MONITORING 1 DEV DEV FS SCH ×4 (06:06→16:56)
[2019-07-07] MEDS: INSULIN LISPRO SLIDING SCALE 100 UNITS/ML VIAL SUBQ PRN ×3 (06:10→17:08)
--- NOTE | 2019-07-07 06:10 | NUR ---
Vitals stable, due meds given. Will endorse to AM shift RN for continuity of care.
[2019-07-07] MEDS: ALBUTEROL SULFATE/IPRATROPIU 3 ML SOL IH SCH ×2 (07:00→14:07)
[2019-07-07 07:21] LABS: ANION GAP 9.1 (8-16); CARBON DIOXIDE 28.1 mmol/L (21-32); CREATININE 0.9 mg/dL (0.7-1.3); EOSINOPHILS # (AUTO) 0.1 K/uL (0-0.4); HEMATOCRIT 26.9 % (36-52); HEMOGLOBIN 8.6 g/dL (12.0-18.0); LYMPHOCYTES # (AUTO) 1.2 K/uL (2.0-11.5); LYMPHOCYTES % (AUTO) 24.6 % (20.5-51.1); MEAN CORPUSCULAR HEMOGLOBIN 27 pg (27-31); MEAN CORPUSCULAR HGB CONC 32 g/dL (33-37); MEAN CORPUSCULAR VOLUME 84.9 fL (80-94); MONOCYTES # (AUTO) 0.7 K/uL (0.8-1.0); MONOCYTES % (AUTO) 13.8 % (1.7-9.3); NEUTROPHILS # (AUTO) 2.9 K/uL (1.8-7.7); NEUTROPHILS % (AUTO) 58.6 % (42.2-75.2); PLATELET COUNT (AUTO) 212 K/uL (140-450); POTASSIUM 3.2 mmol/L (3.5-5.1); RED BLOOD CELL COUNT(AUTO) 3.17 MIL/uL (4.20-6.10); RED CELL DISTRIBUTION WIDTH 21.8 % (11.6-13.7)
--- NOTE | 2019-07-07 07:25 | NUR ---
PT REFUSED BREATHING TX. EXPLAINED BENEFITS/INDICATIONS PT STILL REFUSED. PT NOT SOB, B.S CLEAR BILATERALLY. WILL CONTINUE TO MONITOR.
--- NOTE | 2019-07-07 07:36 | NUR ---
RECEIVED REPORT FROM PLANTING MATERIAL CARRIER RN. PT IN STABLE CONDITION AT THIS TIME. WILL MONITOR PT CLOSELY THROUGHOUT THE SHIFT.
[2019-07-07 07:39] LABS: MAGNESIUM 1.9 mg/dL (1.8-2.4); PHOSPHORUS 2.6 mg/dL (2.5-4.9)
[2019-07-07 08:00] VITALS: BP 98/56
[2019-07-07] MEDS: FUROSEMIDE 40 MG/4 ML VIAL IVP SCH (09:00)
[2019-07-07] MEDS: LACTOBACILLUS RHAMNOSUS GG 1 EACH CAP PO SCH ×2 (09:00→09:29)
[2019-07-07] MEDS: METOPROLOL 25 MG TAB PO SCH (09:00)
[2019-07-07] MEDS: FOAM DRESSING TP SCH (09:00)
[2019-07-07] MEDS: LISINOPRIL 5 MG TAB PO SCH (09:00)
[2019-07-07] MEDS: NICOTINE TRANSD SYS 14 MG/24 HR PATCH TD SCH (09:00)
[2019-07-07] MEDS: RIVAROXABAN 10 MG TAB PO SCH (09:27)
[2019-07-07] MEDS: ASPIRIN 81 MG TAB.CHEW PO SCH (09:27)
[2019-07-07] MEDS: METHADONE 10 MG TAB PO SCH (09:28)
[2019-07-07] MEDS: FAMOTIDINE 20 MG TAB PO SCH (09:28)
[2019-07-07] MEDS: ASCORBIC ACID 500 MG TAB PO SCH (09:28)
[2019-07-07] MEDS: AMIODARONE 200 MG TAB PO SCH (09:29)
[2019-07-07] MEDS: QUEtiapine FUMARATE 25 MG TAB PO SCH (09:29)
[2019-07-07] MEDS: CHLORHEXADINE GLUC 2% CLOTH TP SCH (09:32)
--- NOTE | 2019-07-07 09:34 | NUR ---
ADMINISTERED MORNING MEDS TO PT. PT TOLERATED THEM WELL. FOAM DRESSING ORDERED WAS REFUSED BY PT. I INSISTED ON CHECKING THE SACRAL AREA BUT PT REFUSED. WILL CONTINUE TO ROUND FREQUENTLY ON PT.
--- NOTE | 2019-07-07 11:12 | NUR ---
PT SITTING IN WHEELCHAIR AT BEDSIDE. ALL NEEDS CURRENTLY MET. WILL CONTINUE TO ROUND FREQUENTLY ON PT.
--- NOTE | 2019-07-07 11:24 | NUR ---
FAXED ALL THE INQUIRY TO THE CONTRACTED FACILITY, [facility] AND [facility]. CALLED [facility] ,SPOKE WITH SULEMA PIERRE [phone] ,NOTIFIED HER THAT [facility] WILL ACCEPT PT IF THEY HAVE THE LETTER OF AGREEMENT , PER SULEMA SHE WILL CONTACT THE [facility] ADMISSION OFFICE AND WILL CALL BACK
--- NOTE | 2019-07-07 11:31 | NUR ---
I RECEIVED A CALL FROM HERMIN[facility] JONES SPOKE WITH [facility] UNABLE TO ACCEPT THE PATIENT
[2019-07-07] MEDS ORDERED: POTASSIUM CHLORIDE 10 MEQ TABER PO SCH (12:00)
--- NOTE | 2019-07-07 13:30 | NUR ---
PT LAYING IN BED WATCHING TV. ALL NEEDS CURRENTLY MET. WILL CONTINUE TO ROUND FREQUENTLY ON PT. BED IN LOW POSITION, CALL LIGHT WITHIN REACH.
[2019-07-07] MEDS: DRY DRESSING TP SCH (13:57)
--- NOTE | 2019-07-07 14:10 | NUR ---
VANCOMYCIN BEING GIVEN LATE DUE TO WAITING IN VANCO TROUGH LEVEL FROM LAB. SAFE TO GIVE TO PT. WILL START INFUSION NOW.
--- NOTE | 2019-07-07 14:20 | NUR ---
CALLED [facility] ,SPOKE WITH LEELA REGARDING THE REQUEST PER LEELA STILL CHECKING THE PAPER WORK AND WILL CALL BACK. CALLED SULEMA PIERRE FROM [facility], LEFT A MESSAGE FOR [facility] STILL WAITING. CALLED JERED FROM [place] [phone] LEFT A MESSAGE.
[2019-07-07] MEDS ORDERED: KETOROLAC 30 MG/ML VIAL IM PRN (15:05)
--- NOTE | 2019-07-07 15:45 | NUR ---
I RECEIVED A CALL FROM CHARLES [phone] [facility] ,WILL ACCEPT THE PATIENT LONG THEY GET THE PAU LETTER. [facility] IGNACIO LEONE'S NUMBER , AND WILL CALL BACK.
--- NOTE | 2019-07-07 15:47 | NUR ---
PT RESTING IN BED. ALL NEEDS CURRENTLY MET. WILL CONTINUE TO ROUND FREQUENTLY ON PT
[2019-07-07 16:00] VITALS: BP 120/60
--- NOTE | 2019-07-07 16:32 | NUR ---
I RECEIVED A CALL FROM [facility] [phone] ACCEPTED PATIENT AND PT CAN GO TO ROOM [address] , [address] # TO GIVE REPORT [phone] , ARRANGED TRANSPORT [phone] SPOKE WITH ELODIA YARN [facility]ER TIME WILL BE 4 HRS WINDOW FROM 5PM TO 8:45 PM . NOTIFIED LEXY MEYER
--- NOTE | 2019-07-07 16:52 | NUR ---
I RECEIVED A CALL FROM, [facility] STATED [facility] WILL LEASE ANALYST THE PATIENT AT 7PM
[2019-07-07] MEDS ORDERED: Gauze TP ×2 (17:11)
[2019-07-07] MEDS ORDERED: DOL10 PO (17:11)
[2019-07-07] MEDS ORDERED: PIPE1PDS26 IV (17:11)
[2019-07-07] MEDS ORDERED: Vancomycin Per Pharmacy MC (17:11)
[2019-07-07] MEDS ORDERED: AMIO200T59 PO (17:11)
[2019-07-07] MEDS ORDERED: HUMSLIDE SUBQ (17:11)
[2019-07-07] MEDS ORDERED: FURO-570 PO (17:12)
--- NOTE | 2019-07-07 17:47 | NUR ---
PT REFUSING TO HAVE DRESSINGS CHANGED. PICTURES NEEDED FOR DISCHARGE BUT PT REFUSING. EXPLAINED IMPORTANCE OF CHANGING DRESSING TO PT. PT VERBALIZED UNDERSTANDING BUT REFUSED ANYWAYS. SUPPLIES GIVEN TO PT SO HE CAN CHANGE DRESSING.
[2019-07-07 18:04] VITALS: BP 120/60
--- NOTE | 2019-07-07 19:12 | NUR ---
PT LEFT WITH [facility] TRANSPORT TEAM. PT DISCHARGE PAPERS SIGNED. ALL PERSONAL BELONGINGS TAKEN WITH PT. PICC LINE LEFT IN PLACE DUE TO CONTINUATION OF IV ABX THERAPY. WILL CALL TO GIVE REPORT. PT LEFT IN STABLE CONDITION.
--- NOTE | 2019-07-07 19:45 | NUR ---
CALLED AND GAVE REPORT TO [facility] WHERE PT IS GOING. # CALLED IS [phone]
[2019-07-08] MEDS ORDERED: LACTOBACILLUS RHAMNOSUS GG 1 EACH CAP PO SCH (09:00)
== END 2019-07-07 19:15 | DRG 720 ==
LOC: MED 14:01 → MTU 17:13
PROVIDERS: ADMIT General Practice; ATTEND General Practice
PROC: 02HV33Z Insertion of Infusion Device into Superior Vena Cava, Percutaneous Approach (ICD-10-PCS; principal; 2019-07-03)
PROC: B54MZZA Ultrasonography of Right Upper Extremity Veins, Guidance (ICD-10-PCS; 2019-07-03)
DX: A41.9 Sepsis, unspecified organism (principal); E43 Unspecified severe protein-calorie malnutrition; I50.43 Acute on chronic combined systolic (congestive) and diastolic (congestive) heart failure; L89.152 Pressure ulcer of sacral region, stage 2; J18.9 Pneumonia, unspecified organism; K31.84 Gastroparesis; E11.51 Type 2 diabetes mellitus with diabetic peripheral angiopathy without gangrene; E11.43 Type 2 diabetes mellitus with diabetic autonomic (poly)neuropathy; E83.42 Hypomagnesemia; E11.621 Type 2 diabetes mellitus with foot ulcer; I48.0 Paroxysmal atrial fibrillation; E87.1 Hypo-osmolality and hyponatremia; E78.00 Pure hypercholesterolemia, unspecified; I11.0 Hypertensive heart disease with heart failure; M86.8X7 Other osteomyelitis, ankle and foot; E11.69 Type 2 diabetes mellitus with other specified complication; E78.5 Hyperlipidemia, unspecified; I35.0 Nonrheumatic aortic (valve) stenosis; K76.0 Fatty (change of) liver, not elsewhere classified; B15.9 Hepatitis A without hepatic coma; B19.10 Unspecified viral hepatitis B without hepatic coma; B19.20 Unspecified viral hepatitis C without hepatic coma; E11.65 Type 2 diabetes mellitus with hyperglycemia; L97.519 Non-pressure chronic ulcer of other part of right foot with unspecified severity; E87.6 Hypokalemia; Z87.891 Personal history of nicotine dependence; Z89.512 Acquired absence of left leg below knee; Z59.0 Homelessness; Z79.82 Long term (current) use of aspirin; Z79.899 Other long term (current) drug therapy; Z91.14 Patient's other noncompliance with medication regimen; Z68.24 Body mass index [BMI] 24.0-24.9, adult; Z79.84 Long term (current) use of oral hypoglycemic drugs
CPT/HCPCS: 36415; 71045; 80048; 80053; 80202; 80305; 81001; 82948; 83036; 83605; 83735; 83880; 84100; 84484; 85025; 85610; 85651; 86140; 87040; 87081; 87086; 93005; 94640; 97110; 97161-GP; 97530; 99285; C1751; J1815; J1885; J1940; J2543; J3370; J3475; J7030; J7060; J7620; Q0092

== ENCOUNTER 2019-12-06 12:14 | Emergency (ER) | payer MEDICAID ==
[~2019-12-06] VITALS: Ht 188 cm; Wt 111.1 kg
[~2019-12-06 12:14] MED LIST changes: +AMIO200T59 PO; -ATOR20TA40 PO; +DOL10 PO; +FURO-570 PO; +Gauze TP; +HUMSLIDE SUBQ; +PIPE1PDS26 IV; -RIVA20TA4 PO; -VANC1PIG IV; +Vancomycin Per Pharmacy MC
[2019-12-06 12:39] VITALS: BP 152/98
[2019-12-06 15:44] VITALS: BP 157/82
== END 2019-12-06 15:45 | disposition home or self-care (01) ==
LOC: MED 12:14
DX: S81.801A Unspecified open wound, right lower leg, initial encounter (principal); E11.9 Type 2 diabetes mellitus without complications; I10 Essential (primary) hypertension; Z89.519 Acquired absence of unspecified leg below knee; Z79.4 Long term (current) use of insulin; Z79.82 Long term (current) use of aspirin; Z79.899 Other long term (current) drug therapy; X58.XXXA Exposure to other specified factors, initial encounter
CPT/HCPCS: 99283

== ENCOUNTER 2021-01-10 21:42 | Inpatient (IN) | payer OTHER, MEDICAID ==
[~2021-01-10] VITALS: Ht 188 cm; Wt 51.3 kg
[~2021-01-10 21:42] MED LIST changes: -AMIO200T59 PO; +AMIO200T66 PO; -LISI-424 PO; +LISI-648 PO
[2021-01-10 22:10] VITALS: BP 120/76
[2021-01-10] MEDS ORDERED: ASPIRIN 81 MG TAB.CHEW PO ONE (22:10)
[2021-01-10] MEDS ORDERED: NACL 0.9% 1,000 ML IV ONE (22:10)
--- NOTE | 2021-01-10 22:13 | NUR ---
Pt c/o SOB and pain in sacral pressure injury. Noted with some difficulty breathing, 88-91% on RA. Applied 2L NC, O2 now 98%. Noted with rapid afib, aware. Pulse of 155-175. A/Ox4. States he uses wheelchair and walker at home. Picture taken of sacral and Rt foot wounds. Hx of DM, HTN, hyperlipidemia, Prostate CA, asthma, afib, CHF. Ultrasound guided RAC 20g IV placed by .
--- NOTE | 2021-01-10 22:13 | NUR ---
PT W/C TO BED 7
[2021-01-10] MEDS ORDERED: FUROSEMIDE 40 MG/4 ML VIAL IVP ONE (22:15)
[2021-01-10] MEDS ORDERED: NITROGLYCERIN 2% 1 GM PKT TP ONE (22:15)
[2021-01-10] MEDS ORDERED: DILTIAZEM 25 MG/5 ML VIAL IVP ONE ×2 (22:15→22:45)
[2021-01-10 22:43] LABS: BASOPHILS # (AUTO) 0.1 K/uL (0.00-0.22); BASOPHILS % (AUTO) 1.2 % (0.0-2.0); EOSINOPHILS % (AUTO) 0.2 % (0.0-4.0); HEMATOCRIT 40.9 % (36-52); HEMOGLOBIN 13.2 g/dL (12.0-18.0); LYMPHOCYTES # (AUTO) 1.3 K/uL (2.0-11.5); LYMPHOCYTES % (AUTO) 11.2 % (20.5-51.1); MEAN CORPUSCULAR HEMOGLOBIN 30 pg (27-31); MEAN CORPUSCULAR HGB CONC 32 g/dL (33-37); MEAN CORPUSCULAR VOLUME 91.4 fL (80-94); MONOCYTES # (AUTO) 1.2 K/uL (0.8-1.0); MONOCYTES % (AUTO) 10.2 % (1.7-9.3); NEUTROPHILS # (AUTO) 9.2 K/uL (1.8-7.7); NEUTROPHILS % (AUTO) 77.2 % (42.2-75.2); PLATELET COUNT (AUTO) 257 K/uL (140-450); RED BLOOD CELL COUNT(AUTO) 4.48 MIL/uL (4.20-6.10); RED CELL DISTRIBUTION WIDTH 14.6 % (11.6-13.7); WHITE BLOOD COUNT (AUTO) 11.9 K/uL (4.8-10.8)
--- NOTE | 2021-01-10 22:56 | NUR ---
PT MOVED FROM BED 7 TO BED 10.
[2021-01-10 23:05] LABS: ANION GAP 19.6 (8-16); CARBON DIOXIDE 21.9 mmol/L (21-32); CREATININE 1.4 mg/dL (0.6-1.3); POTASSIUM 4.5 mmol/L (3.5-5.1); TOTAL BILIRUBIN 3.1 mg/dL (0.0-1.0)
[2021-01-10 23:07] LABS: D-DIMER 3120 ng/ml (0-400)
[2021-01-10 23:14] LABS: C-REACTIVE PROTEIN QUANT 3.7 mg/dL (0.0-0.9); LACTATE DEHYDROGENASE 798 U/L (85-227)
[2021-01-10] MEDS ORDERED: NACL 0.9% 3,500 ML IV ONE (23:15)
[2021-01-10] MEDS ORDERED: LEVOFLOXACIN 500 MG/D5W PREMIX 100 ML IV ONE (23:15)
[2021-01-10] MEDS ORDERED: cefTRIAXone 1,000 MG VIAL ONE (23:28)
[2021-01-10 23:29] LABS: PROTHROMBIN TIME 18.4 secs (10.8-13.4)
[2021-01-10 23:42] LABS: RSV NEGATIVE (NEGATIVE)
[2021-01-10] MEDS ORDERED: DILTIAZEM 125 MG in DEXTROSE 5% 100 ML IV ONE (23:45)
[2021-01-10] MEDS ORDERED: DILTIAZEM 125 MG/25 ML VIAL IV ONE (23:57)
[2021-01-10 23:59] LABS: FIBRINOGEN 359 mg/dL (200-400)
[2021-01-11] VITALS (17 sets, daily range): BP systolic 88–163; BP diastolic 50–108
--- NOTE | 2021-01-11 00:05 | NUR ---
Diltiazim drip started, pt HR 156-170. See IV flowsheet.
--- NOTE | 2021-01-11 00:10 | NUR ---
When attempting to hang IV Diltiazem drip, pt noted with IV infiltrated. notified, stated to find RN who can start another US guided IV. Called to ICU, RN stated they will come start IV. Will cont to f/u.
--- NOTE | 2021-01-11 00:20 | NUR ---
Per joaquin Kyle that IV NS bolus is infusing slowly d/t small and sluggish catheter.
[2021-01-11] MEDS ORDERED: METF500T2 PO (00:33)
[2021-01-11] MEDS ORDERED: CARV3.12 PO (00:33)
[2021-01-11] MEDS ORDERED: INSU-1163 SQ (00:33)
[2021-01-11] MEDS ORDERED: LANTUS SC (00:33)
[2021-01-11] MEDS ORDERED: ONDANSETRON 4 MG/2 ML VIAL IVP ONE ×2 (02:05→04:20)
[2021-01-11] MEDS ORDERED: ONDANSETRON 4 MG/2 ML VIAL ONE ×2 (02:06→04:20)
[2021-01-11] MEDS ORDERED: METOPROLOL 5 MG/5 ML VIAL IVP ONE (02:35)
--- NOTE | 2021-01-11 02:51 | NUR ---
Per pullman car repairer Marni, unable to obtain second lactate d/t pt is difficult stick. States she will endorse to [facility] pullman car repairer @[phone].
[2021-01-11 02:53] LABS: APPEARANCE,URINE CLEAR (CLEAR); BILIRUBIN,URINE NEGATIVE (NEGATIVE); BLOOD, URINE NEGATIVE (NEGATIVE); COLOR,URINE ORANGE (YELLOW); LEUKOCYTE ESTERASE ,URINE NEGATIVE (NEGATIVE); NITRITE, URINE NEGATIVE (NEGATIVE); PH,URINE 5.5 (5.0-9.0); UGLUCOSE TRACE (NEGATIVE)
--- NOTE | 2021-01-11 02:53 | NUR ---
urine sent to lab
[2021-01-11 03:07] LABS: RBC,URINE 0-5 /HPF (0-5); WBC,URINE 0-5 /HPF (0-5)
[2021-01-11 03:08] LABS: HYALINE CASTS, URINE 0-5 /LPF (None Seen)
[2021-01-11] MEDS ORDERED: DOL10 PO (03:11)
--- NOTE | 2021-01-11 03:40 | NUR ---
Spoke with Samantha case management from [facility] for updated status. Answered all questions.
--- NOTE | 2021-01-11 05:09 | NUR ---
Pt tolerating Diltiazim drip well. Brought to toilet via WC, monitored closely throughout transfer. Pulse currently 105-119. See IV Spreadsheet for updated vitals and titration.
[2021-01-11] MEDS ORDERED: ASPIRIN 325 MG TAB PO ONE (05:20)
[2021-01-11] MEDS ORDERED: ENOXAPARIN 100 MG/ML SYR SUBQ ONE (05:20)
--- NOTE | 2021-01-11 06:00 | NUR ---
Patient will be admitted to care of Walter MEYER in ICU. Admited to 127. Belongings list completed. Transported on gurney with signals collection technician and RN on floor assembler with Diltiazim drip running at 15ml/hr. HR 105-110. Report given to Walter RN, notified him of PICC line order. Pt transported with all belongings.
[2021-01-11] MEDS ORDERED: ONDANSETRON 4 MG/2 ML VIAL IM/IVP PRN (06:30)
[2021-01-11] MEDS ORDERED: ACETAMINOPHEN 325 MG TAB PO PRN (06:30)
[2021-01-11] MEDS ORDERED: HYDROcodone/APAP 7.5/325 MG 1 TAB PO PRN (06:30)
[2021-01-11] MEDS ORDERED: DEXTROSE 50% 50 ML SYR IVP PRN (06:30)
[2021-01-11] MEDS ORDERED: ALBUTEROL HFA MDI 90 MCG/ACTUATION 8 GM INH PRN (06:30)
[2021-01-11] MEDS ORDERED: POTASSIUM CHLORIDE 10 MEQ TABER PO PRN (06:30)
--- NOTE | 2021-01-11 06:45 | NUR ---
RECEIVED REPORT FROM ED NURSE; PT AAOX4 UNCONTROLLED AFIB 120S ON CARDIZEM DRIP @ 15MG/HR. DENIES CP SOB @ THIS TIME. IV TO R UPPER AXILLARY AREA. SKIN INTACT. NO ACUTE DISTRESS WILL CONTINUE TO OBSERVE.
[2021-01-11] MEDS: BLOOD GLUCOSE MONITORING 1 DEV DEV FS SCH ×4 (07:30→20:45)
--- NOTE | 2021-01-11 07:30 | NUR ---
RECEIVED REPORT FROM VASC TECH NURSE. PATIENT IN BED, ALERT AND ORIENTED X4. SPO2 97% RA. R SHOULDER 20G, R ARMPIT 22G, CLEAN DRY INTACT. NO INFUSIONS AT THIS TIME, WILL CONTACT DR MEEK IN REGARDS TO CARDIZEM DRIP HE WAS RECEIVING IN ED. BED IN LOW POSITION, CALL LIGHT WITHIN REACH, OIL FIELD EQUIPMENT MECHANIC IN PLACE, SAFETY MEASURES IN PLACE.
--- NOTE | 2021-01-11 07:30 | NUR ---
REPORT GIVEN TO DAY SHIFT FOR CONTINUITY OF CARE.
--- NOTE | 2021-01-11 07:30 | NUR ---
PATIENT ENDORSED TO WARP CHANGER NURSE FOR CONTINUITY OF CARE. WARP CHANGER NURSE AWARE OF FAX SENT OUT TO PATIENT CLINIC FOR [facility]. PATIENT STABLE AT THIS TIME.
[2021-01-11 07:53] LABS: CHOL/HDL RATIO 5.2 (1-4.5); FREE T4 (FREE THYROXINE) 1.56 ng/dL (0.76-1.46); MAGNESIUM 1.9 mg/dL (1.8-2.4); PHOSPHORUS 4.7 mg/dL (2.5-4.9); THYROID STIMULATING HORMONE 1.98 uIU/mL (0.34-3.74)
--- NOTE | 2021-01-11 08:19 | NUR ---
PATIENT HAS BEEN SCREENED AND CATEGORIZED HIGH NUTRITION RISK. PATIENT WILL BE SEEN WITHIN 1-2 DAYS OF ADMISSION. 01/11/2021-01/12/[address]
[2021-01-11] MEDS: INSULIN LISPRO SLIDING SCALE 100 UNITS/ML VIAL SUBQ PRN ×2 (08:36→11:36)
--- NOTE | 2021-01-11 08:46 | NUR ---
PER [facility] JULIANN [phone] FABIAN VICTORIA, PT IS CURRENTLY TAKING METHADONE 80MG LIQ DAILY. LAST DOSE YESTERDAY 01/10/2021. WILL ASK PT FOR AUTHORIZATION OF DISCLOSURE AND REQUEST INFO VIA FAX [phone]
[2021-01-11] MEDS ORDERED: AZITHROMYCIN 250 MG TAB PO SCH (09:00)
[2021-01-11] MEDS: ASPIRIN 81 MG TAB.CHEW PO SCH (09:31)
[2021-01-11] MEDS: AMIODARONE 200 MG TAB PO SCH (09:32)
[2021-01-11] MEDS: QUEtiapine FUMARATE 25 MG TAB PO SCH ×2 (09:32→20:39)
[2021-01-11] MEDS: FAMOTIDINE 20 MG TAB PO SCH ×2 (09:32→20:36)
--- NOTE | 2021-01-11 09:40 | NUR ---
ADMINISTERED SCHEDULED MEDS PER MD ORDER. METOPROLOL HELD DUE TO LOW BP. MED EDUCATION PROVIDED, PATIENT VERBALIZES UNDERSTANDING.
[2021-01-11] MEDS: METOPROLOL 25 MG TAB PO SCH ×2 (11:10→20:55)
--- NOTE | 2021-01-11 11:15 | NUR ---
PATIENT COMPLAINING OF HEARTBURN, NEW MED ORDERED BY DR MEEK.
[2021-01-11] MEDS: DOCUSATE SODIUM 100 MG GELCAP PO PRN (11:34)
[2021-01-11] MEDS: PANTOPRAZOLE 40 MG TABEC PO SCH (11:34)
[2021-01-11] MEDS: NOREPINEPHRINE 4 MG in DEXTROSE 5% 250 ML IV PRN ×2 (12:10→22:00)
--- NOTE | 2021-01-11 12:28 | NUR ---
OFFICE OF DR RENTERIA PAGEDavid FOR CARDIAC CONSULT. PT WITH HISTORY OF AFIB, HTN, CHF EXPERIENCING HYPOTENSION. STARTED ON LEVOPHED DRIP. WILL MONITOR CLOSELY.
--- NOTE | 2021-01-11 14:00 | NUR ---
PATIENT'S CLINIC FAXED IN REGARDS TO [facility]. NO RETURN FAX WITH INFORMATION OF THIS TIME.
[2021-01-11] MEDS: DILTIAZEM 125 MG in DEXTROSE 5% 100 ML IV SCH (19:30)
--- NOTE | 2021-01-11 20:00 | NUR ---
RECEIVED REPORT FROM DAY SHIFT RN. PT IS ALERT AND ORIENTED X4. ABLE TO MAKE NEEDS KNOWN TO STAFF. RESPIRATION EVEN AND UNLABORED. ON ROOM AIR. ORAL MUCOSA PINK AND MOIST. ABDOMEN SOFT, LARGE, NONTENDER. SKIN WARM, DRY WITH REDNESS ON THE SACRUM. PICC ACCESS ON THE RIGHT UPPER ARM. RIGHT SHOULDER 20G, RIGHT ARMPIT 22G. LINES ASYMPTOMATIC, PATENT AND INTACT. PT ON LEVOPHED @ 6MCG/MIN, RESTARTED ON CARDIZEM 5 MG/HR, STARTED WITH NS @ 60MLS/HR. SAFETY PRECAUTIONS IN PLACE. SIDE RAILS UP. BED IN LOW AND LOCKED POSITION. WILL CONTINUE TO MONITOR.
--- NOTE | 2021-01-11 20:07 | NUR ---
THE TIME IS 193
[2021-01-11] MEDS: NACL 0.9% 1,000 ML IV SCH (20:12)
[2021-01-11] MEDS: CALCIUM CARBONATE 500 MG TAB.CHEW PO SCH (20:36)
[2021-01-11] MEDS: ATORVASTATIN 20 MG TAB PO SCH (20:37)
[2021-01-11] MEDS: BUMETANIDE 1 MG TAB PO SCH (20:38)
[2021-01-11] MEDS: metroNIDAZOLE 500 MG/NS PREMIX 100 ML IV SCH (20:40)
[2021-01-11] MEDS: LEVOFLOXACIN 500 MG/D5W PREMIX 100 ML IV SCH (20:58)
[2021-01-12] VITALS (24 sets, daily range): BP systolic 89–129; BP diastolic 54–78
--- NOTE | 2021-01-12 | NUR ---
PT RESTING IN BED. NO DISTRESS OBSERVED. WILL CONTINUE TO MONITOR.
--- NOTE | 2021-01-12 04:00 | NUR ---
NO COMPLAINTS AND CONCERNS AT THIS TIME. PT RESTING IN BED WITH EYES CLOSED. NO ACUTE DISTRESS NOTED. WILL CONTINUE TO MONITOR.
[2021-01-12] MEDS: metroNIDAZOLE 500 MG/NS PREMIX 100 ML IV SCH ×3 (05:00→20:39)
[2021-01-12] MEDS: NACL 0.9% 1,000 ML IV SCH ×2 (07:00→15:50)
[2021-01-12] MEDS: BLOOD GLUCOSE MONITORING 1 DEV DEV FS SCH ×4 (07:30→19:39)
[2021-01-12] MEDS: INSULIN LISPRO SLIDING SCALE 100 UNITS/ML VIAL SUBQ PRN ×4 (07:30→19:37)
--- NOTE | 2021-01-12 07:30 | NUR ---
RECEIVED REPORT FROM DAY SHIFT RN. AOX4. VERBAL AND ABLE TO MAKE NEEDS KNOWN. NO C/O PAIN, RESPIRATION EVEN AND UNLABORED. ON ROOM AIR. WITH DEO PICC. RIGHT SHOULDER 20G, RIGHT ARMPIT 22G. LINES ASYMPTOMATIC, PATENT AND INTACT. ON LEVOPHED @ 2MCG/MIN, ON CARDIZEM 10 MG/HR, NS @ 60MLS/HR. SAFETY PRECAUTIONS IN PLACE. SIDE RAILS UP. BED IN LOW AND LOCKED POSITION. WILL CONTINUE TO MONITOR.
[2021-01-12 07:52] LABS: BASOPHILS # (AUTO) 0.1 K/uL (0.00-0.22); BASOPHILS % (AUTO) 1.1 % (0.0-2.0); EOSINOPHILS # (AUTO) 0.1 K/uL (0-0.4); EOSINOPHILS % (AUTO) 1.8 % (0.0-4.0); HEMATOCRIT 37.6 % (36-52); HEMOGLOBIN 12.2 g/dL (12.0-18.0); LYMPHOCYTES # (AUTO) 0.9 K/uL (2.0-11.5); MEAN CORPUSCULAR HEMOGLOBIN 30 pg (27-31); MEAN CORPUSCULAR HGB CONC 32 g/dL (33-37); MEAN CORPUSCULAR VOLUME 91.6 fL (80-94); MONOCYTES # (AUTO) 0.7 K/uL (0.8-1.0); MONOCYTES % (AUTO) 9.8 % (1.7-9.3); NEUTROPHILS # (AUTO) 5.4 K/uL (1.8-7.7); NEUTROPHILS % (AUTO) 75.3 % (42.2-75.2); PLATELET COUNT (AUTO) 162 K/uL (140-450); RED BLOOD CELL COUNT(AUTO) 4.11 MIL/uL (4.20-6.10); RED CELL DISTRIBUTION WIDTH 14.8 % (11.6-13.7); WHITE BLOOD COUNT (AUTO) 7.2 K/uL (4.8-10.8)
[2021-01-12 08:02] LABS: ANION GAP 6.9 (8-16); CARBON DIOXIDE 31.2 mmol/L (21-32); CREATININE 0.9 mg/dL (0.6-1.3); POTASSIUM 3.1 mmol/L (3.5-5.1)
--- NOTE | 2021-01-12 08:20 | NUR ---
RECEIVED FAX FROM [facility], PLACED IN CHART, PRIMARY NURSE NOTIFIED, WILL NOTIFY .
--- NOTE | 2021-01-12 08:45 | NUR ---
SEEN BY DR HOWARD, NO NEW ORDERS
[2021-01-12] MEDS: METHADONE 10 MG TAB PO SCH (09:00)
[2021-01-12] MEDS: ASPIRIN 81 MG TAB.CHEW PO SCH (09:00)
[2021-01-12] MEDS: METOPROLOL 25 MG TAB PO SCH ×2 (09:00→20:42)
[2021-01-12] MEDS: BUMETANIDE 1 MG TAB PO SCH ×2 (09:00→20:39)
[2021-01-12] MEDS: CALCIUM CARBONATE 500 MG TAB.CHEW PO SCH ×2 (09:00→20:41)
[2021-01-12] MEDS: FAMOTIDINE 20 MG TAB PO SCH ×2 (09:00→20:39)
[2021-01-12] MEDS: QUEtiapine FUMARATE 25 MG TAB PO SCH ×2 (09:00→20:40)
[2021-01-12] MEDS: PANTOPRAZOLE 40 MG TABEC PO SCH (09:00)
[2021-01-12] MEDS: AMIODARONE 200 MG TAB PO SCH (09:00)
[2021-01-12 09:06] LABS: T4 (THYROXINE) 7.6 ug/dL (4.5-12.0)
--- NOTE | 2021-01-12 09:15 | NUR ---
DUE MORNING MEDS GIVEN ORDERED. COLACE AND POTASSIUM PRN GIVEN
[2021-01-12] MEDS: DILTIAZEM 125 MG in DEXTROSE 5% 100 ML IV SCH (10:10)
[2021-01-12] MEDS: DOCUSATE SODIUM 100 MG GELCAP PO PRN (10:11)
--- NOTE | 2021-01-12 11:56 | NUR ---
SOCIAL WORK NOTE: DUSTIN WAS UNABLE TO MEET PATIENT AT BEDSIDE. DUSTIN LEFT WITH PATIENT'S EMERGENCY CONTACT ELISE SOLIS [phone]. DUSTIN WILL FOLLOW UP TO COMPLETE ASSESSMENT. Addendum: 01/13/21 at 1222 by Grant Abreu DUSTIN CONTACTED RN TO SEE IF ANY ADDITIONAL CONTACT INFORMATION WAS AVAILABLE FOR FAMILY. PER RN, PATIENT'S FRIEND ELISE SOLIS HAS CONTACTED [facility]. DUSTIN CONTACTED JOSE [phone] AND LEFT .
--- NOTE | 2021-01-12 13:45 | NUR ---
SEEN BY DR MEEK
--- NOTE | 2021-01-12 14:00 | NUR ---
01/12/21 RD INITIAL ASSESSMENT COMPLETED PLEASE REFER TO INITIAL ASSESSMENT NOTE UNDER CARE ACTIVITY FOR ESTIMATED NUTRITION NEEDS. RD RECOMMENDATIONS: 1.RECOMMEND DIET MODIFICATION OF APPROVED CCHO DIET TO 75GM CCHO DIET TO MEET THE INDIVIDUAL NEEDS PF THE PATIENT. 2. F/U 2-3 DAYS; HIGH RISK ARABELLA COX MBA, RD
--- NOTE | 2021-01-12 14:00 | NUR ---
PT IN BED WITH COMPLAINT OF CHEST DISCOMFORT. INSTRUCTED TO SIT UP OR TO ELEVATE HOB WHEN IN BED. VITAL SIGN AND O2SAT WITHIN NORMAL LIMITS
--- NOTE | 2021-01-12 18:50 | NUR ---
O2SAT AND VITAL SIGNS WITHIN NORMAL LIMITS. PT ON ROOM AIR, ON CARDIZEM DRIP 5MG/HR. STILL WITH C/O MILD SOB AND CHEST DISCOMFORT
--- NOTE | 2021-01-12 20:00 | NUR ---
RECEIVED REPORT FROM DAY SHIFT RN. PT IS ALERT AND ORIENTED X4. ABLE TO MAKE NEEDS KNOWN TO STAFF. RESPIRATION EVEN AND UNLABORED. ON ROOM AIR. ORAL MUCOSA PINK AND MOIST. ABDOMEN SOFT, LARGE, NONTENDER. SKIN WARM, DRY WITH REDNESS ON THE SACRUM. LEFT BKA. PICC ACCESS ON THE RIGHT UPPER ARM. LINE ASYMPTOMATIC, PATENT AND INTACT. PT ON CARDIZEM 5 MG/HR, NS @ 60MLS/HR. SAFETY PRECAUTIONS IN PLACE. SIDE RAILS UP. BED IN LOW AND LOCKED POSITION. WILL CONTINUE TO MONITOR.
[2021-01-12] MEDS ORDERED: QUEtiapine FUMARATE 25 MG TAB ONE (20:17)
[2021-01-12] MEDS: ATORVASTATIN 20 MG TAB PO SCH (20:39)
[2021-01-12] MEDS: LEVOFLOXACIN 500 MG/D5W PREMIX 100 ML IV SCH (20:42)
[2021-01-13] VITALS (20 sets, daily range): BP systolic 100–139; BP diastolic 58–87
--- NOTE | 2021-01-13 | NUR ---
PT COMPLAINTS OF SOB. HOOKED WITH 2L NC. RT AT BEDSIDE. WILL CONTINUE TO MONITOR.
--- NOTE | 2021-01-13 02:00 | NUR ---
JELLO(NO SUGAR ADDED) GIVEN PER PT'S REQUEST. NO COMPLAINTS AT THIS TIME. WILL CONTINUE TO MONITOR.
--- NOTE | 2021-01-13 04:30 | NUR ---
PT RESTING IN BED COMFORTABLY. WILL CONTINUE TO MONITOR.
[2021-01-13] MEDS: metroNIDAZOLE 500 MG/NS PREMIX 100 ML IV SCH ×3 (04:32→21:20)
[2021-01-13 06:13] LABS: BASOPHILS # (AUTO) 0.1 K/uL (0.00-0.22); BASOPHILS % (AUTO) 1.2 % (0.0-2.0); EOSINOPHILS # (AUTO) 0.1 K/uL (0-0.4); EOSINOPHILS % (AUTO) 1.7 % (0.0-4.0); HEMATOCRIT 37.7 % (36-52); HEMOGLOBIN 12.2 g/dL (12.0-18.0); LYMPHOCYTES # (AUTO) 0.9 K/uL (2.0-11.5); LYMPHOCYTES % (AUTO) 10.3 % (20.5-51.1); MEAN CORPUSCULAR HEMOGLOBIN 30 pg (27-31); MEAN CORPUSCULAR HGB CONC 32 g/dL (33-37); MEAN CORPUSCULAR VOLUME 92.3 fL (80-94); NEUTROPHILS # (AUTO) 6.4 K/uL (1.8-7.7); NEUTROPHILS % (AUTO) 74.8 % (42.2-75.2); PLATELET COUNT (AUTO) 187 K/uL (140-450); RED BLOOD CELL COUNT(AUTO) 4.09 MIL/uL (4.20-6.10); RED CELL DISTRIBUTION WIDTH 15.4 % (11.6-13.7); WHITE BLOOD COUNT (AUTO) 8.6 K/uL (4.8-10.8)
[2021-01-13 06:36] LABS: ANION GAP 10.2 (8-16); CARBON DIOXIDE 28.7 mmol/L (21-32); CREATININE 1.1 mg/dL (0.6-1.3); POTASSIUM 3.9 mmol/L (3.5-5.1)
[2021-01-13] MEDS: BLOOD GLUCOSE MONITORING 1 DEV DEV FS SCH ×4 (07:59→20:28)
--- NOTE | 2021-01-13 08:00 | NUR ---
NN - RECEIVED REPORT ON PATIENT. PATIENT SLEEPING IN BED, NO ACUTE DISTRESS NOTED. PICC LINE PATIENT AND INFUSING. BREAKFAST PROVIDED TO PATIENT. WILL CONTINUE TO MONITOR.
[2021-01-13] MEDS: QUEtiapine FUMARATE 25 MG TAB PO SCH ×3 (09:00→21:21)
--- NOTE | 2021-01-13 09:00 | NUR ---
NN - PATIENT SAT AT BED BEDSIDE AND DANGLED HIS LEGS WHILE EATING BREAKFAST. HE TOLERATED WELL AND REQUESTED THAT I FIND SOMEONE TO FIX HIS TV. CALLED TO HAVE THE TV FIXED.
--- NOTE | 2021-01-13 09:00 | NUR ---
NN - PATIENT REFUSED SEROQUEL THIS MORNING BECAUSE HE WANTS TO BE MORE AWAKE. WILL CONTINUE TO MONITOR.
[2021-01-13] MEDS: NACL 0.9% 1,000 ML IV SCH (09:11)
[2021-01-13] MEDS: CALCIUM CARBONATE 500 MG TAB.CHEW PO SCH ×2 (09:11→21:21)
[2021-01-13] MEDS: METHADONE 10 MG TAB PO SCH (09:12)
[2021-01-13] MEDS: PANTOPRAZOLE 40 MG TABEC PO SCH (09:12)
[2021-01-13] MEDS: BUMETANIDE 1 MG TAB PO SCH ×2 (09:12→21:21)
[2021-01-13] MEDS: ASPIRIN 81 MG TAB.CHEW PO SCH (09:12)
[2021-01-13] MEDS: METOPROLOL 25 MG TAB PO SCH ×2 (09:13→21:21)
[2021-01-13] MEDS: FAMOTIDINE 20 MG TAB PO SCH ×2 (09:13→21:21)
[2021-01-13] MEDS: AMIODARONE 200 MG TAB PO SCH (09:13)
--- NOTE | 2021-01-13 13:00 | NUR ---
NN - PATIENT SAT AT BEDSIDE AGAIN FOR LUNCH AND TOLERATED WELL. TV WAS FIX AND PATIENT HAS NO QUESTIONS OR REQUESTS AT THIS TIME. WILL CONTINUE TO MONITOR.
--- NOTE | 2021-01-13 14:09 | NUR ---
DISCHARGE PLANNING: THIS IS A 60 Y/O MALE PATIENT FROM HOME, WHO CAME IN DUE TO SOB. PAST MEDICAL HISTORY INCLUDE A FIB, DIABETES, CHF, BKA AND HEROIN USE. INITIAL DIAGNOSIS OF A FIB WITH RVR, SEPTIC SHOCK, RIGHT LOWER LOBE PNA AND TYPE 2 DIABETES. CURRENT LABS INCLUDE WBC 8.6, H/H 12.2/37.7, NA/K 138/3.9, BUN/CREA 27/1.1, TROP 0.220. ON METHADONE, METRONIDAZOLE, LEVOFLOXACIN. CARDIO, NEPHRO, ID AND PULMO CONSULTS IN PLACE. FOR POSSIBLE DOWNGRADE TO TELE TODAY. Addendum: 01/14/21 at 1342 by Smita Calderon CM DOWNGRADED TO TELE TODAY. Addendum: 01/15/21 at 1056 by Ashley Dunham RN DC PLANNING: SEEN BY NEPHRO, CARDIO PULMO AND ID RECOMMENDED PATIENT IS CLINICALLY STABLE POSSIBLE DC HOME TODAY. CM TO FOLLOW Addendum: 01/15/21 at 1340 by Chaparrita Cha CM CHARMAINE BEST: RECEIVED ORDER FOR SNF FOR PT. FAXED TO [facility]. WILL FOLLOW UP FOR CONTRACTED FACILITIES Addendum: 01/15/21 at 1356 by Chaparrita Cha CM DC NASIR: SPOKE TO IGNACIO HOWE AT [facility] [phone] SHE WILL FAX US A LIST OF CONTRACTED FACILITIES. SHE STATED ONCE WE HAVE AN ACCEPTING TO CALL BACK AND SHE WILL PROVIDE US AUTH. Addendum: 01/15/21 at 1529 by Chaparrita Cha CM DC FLIGHT DISPATCHER: [facility] IS ABLE TO ACCEPT PATIENT ROOM # 24-B. Addendum: 01/15/21 at 1531 by Chaparrita Cha CM CHARMAINE BEST: [facility] [address] [place] [address] NUMBER FOR REPORT:[phone] ACCEPTING DOCTOR: DR MCCAULEY Addendum: 01/15/21 at 1532 by Chaparrita Cha CM DC FLIGHT DISPATCHER: SPOKE TO PADMINI AT [facility] SHE STATED I WILL RECEIVE A PHONE CALL BACK REGARDING AUTH FOR SNF AND TRANSPORTATION . Addendum: 01/16/21 at 0859 by Chaparrita Cha CM DC FLIGHT DISPATCHER: RECEIVED A PHONE CALL FROM [facility] STATING PATIENT DOES NOT WANT TO GO TO SNF HE WANTS TO GO HOME. Addendum: 01/16/21 at 1130 by Ashley Dunham RN DC PLANNING: SPOKE WITH THE PATIENT REGARDING THE CONCERNS AND ISSUE ABOUT THE CAR. PT'S CONCERN WAS HE HAS NO ONE TO TAKE THE CAR TO HIS HOUSE AND NEEDS TRANSPORT FROM [facility] TO [facility]. DISCUSSED WITH THE ADMIN AND PER ELVA GUILLEN TO LEAVE THE CARE AT [facility] UNTIL HE DC FROM [facility] AND [facility] WILL PROVIDE A TAXI UPON DISCHARGE. WILL NOTIFY SECURITY. CM TO FOLLOW Addendum: 01/16/21 at 1153 by Chaparrita Cha CM DC FLIGHT DISPATCHER: ARRANGED TRANSPORTATION WITH [facility] [phone]. SET UP WITH [facility] AND 3.0 L O2. ETA OF TRANSPORTATION IS 1:50 PM.
--- NOTE | 2021-01-13 15:42 | NUR ---
NN - PATIENT RESTING WITH NO CURRENT COMPLAINTS. WILL CONTINUE TO MONITOR.
[2021-01-13] MEDS: INSULIN LISPRO SLIDING SCALE 100 UNITS/ML VIAL SUBQ PRN (16:18)
[2021-01-13] MEDS ORDERED: DIGOXIN 0.25 MG/ML AMP IV PRN (17:15)
--- NOTE | 2021-01-13 17:19 | NUR ---
NN - DR. CASTRO CALLED REGARDING HR OF 120s. ORDERS RECEIVED, WILL CONTINUE TO MONITOR.
[2021-01-13] MEDS ORDERED: DIGOXIN 0.25 MG/ML AMP IV SCH (17:30)
--- NOTE | 2021-01-13 19:48 | NUR ---
RECEIVED REPORT FROM DAY SHIFT RN. PT AWAKE ALERT AND ORIENTED X4. PT ON ROOM AIR; RESPIRATIONS CLEAR EVEN AND UNLABORED. ABDOMEN SOFT, LARGE, NONTENDER ACTIVE BOWEL SOUNDS. PT VOIDING IN URINAL, YELLOW URINE NOTED. SKIN WARM, DRY WITH REDNESS TO THE SACRUM. LEFT BKA. PICC LINE TO THE RIGHT UPPER ARM, PATENT AND INTACT;NS @ 60MLS/HR. SAFETY PRECAUTIONS IN PLACE. SIDE RAILS UP. BED IN LOW AND LOCKED POSITION. WILL CONTINUE TO MONITOR.
[2021-01-13] MEDS: LEVOFLOXACIN 500 MG/D5W PREMIX 100 ML IV SCH (21:21)
[2021-01-13] MEDS: ATORVASTATIN 20 MG TAB PO SCH (21:21)
--- NOTE | 2021-01-13 22:15 | NUR ---
PT SITTING UP WATCHING TELEVISION; DENIES PAIN @ THIS TIME. WILL CONTINUE TO MONITOR.
[2021-01-14] VITALS (12 sets, daily range): BP systolic 98–144; BP diastolic 47–86
--- NOTE | 2021-01-14 00:15 | NUR ---
PT HAS EYES CLOSED; AROUSABLE FLACC 0 AFIB 100S, NO ACUTE DISTRESS NOTED. WILL CONTINUE TO OBSERVE.
[2021-01-14] MEDS: NACL 0.9% 1,000 ML IV SCH (01:26)
--- NOTE | 2021-01-14 04:30 | NUR ---
PT IN CONTROLLED AFIB 90-100S. NO ACUTE DISTRESS NOTED. WILL CONTINUE TO OBSERVE.
[2021-01-14] MEDS: metroNIDAZOLE 500 MG/NS PREMIX 100 ML IV SCH ×3 (05:00→21:53)
[2021-01-14 06:07] LABS: HEPATITIS A ANTIBODY IGM Negative (Negative); HEPATITIS B CORE AB TOTAL Positive (Negative); HEPATITIS B SURFACE ANTIBODY Reactive (.); HEPATITIS B SURFACE ANTIGEN Negative (Negative)
[2021-01-14 06:47] LABS: BASOPHILS # (AUTO) 0.1 K/uL (0.00-0.22); BASOPHILS % (AUTO) 1.2 % (0.0-2.0); EOSINOPHILS # (AUTO) 0.2 K/uL (0-0.4); EOSINOPHILS % (AUTO) 2.6 % (0.0-4.0); HEMATOCRIT 37.7 % (36-52); HEMOGLOBIN 12.2 g/dL (12.0-18.0); LYMPHOCYTES # (AUTO) 0.7 K/uL (2.0-11.5); LYMPHOCYTES % (AUTO) 10.6 % (20.5-51.1); MEAN CORPUSCULAR HEMOGLOBIN 30 pg (27-31); MEAN CORPUSCULAR HGB CONC 32 g/dL (33-37); MEAN CORPUSCULAR VOLUME 91.7 fL (80-94); MONOCYTES # (AUTO) 0.7 K/uL (0.8-1.0); MONOCYTES % (AUTO) 10.1 % (1.7-9.3); NEUTROPHILS # (AUTO) 5.1 K/uL (1.8-7.7); NEUTROPHILS % (AUTO) 75.5 % (42.2-75.2); PLATELET COUNT (AUTO) 138 K/uL (140-450); RED BLOOD CELL COUNT(AUTO) 4.11 MIL/uL (4.20-6.10); RED CELL DISTRIBUTION WIDTH 15.1 % (11.6-13.7); WHITE BLOOD COUNT (AUTO) 6.8 K/uL (4.8-10.8)
[2021-01-14 06:48] LABS: ANION GAP 9.3 (8-16); CARBON DIOXIDE 30.4 mmol/L (21-32); CREATININE 0.8 mg/dL (0.6-1.3); POTASSIUM 3.7 mmol/L (3.5-5.1)
[2021-01-14] MEDS: BLOOD GLUCOSE MONITORING 1 DEV DEV FS SCH ×4 (07:03→21:01)
[2021-01-14] MEDS: INSULIN LISPRO SLIDING SCALE 100 UNITS/ML VIAL SUBQ PRN ×4 (07:03→21:45)
--- NOTE | 2021-01-14 07:10 | NUR ---
RECEIVED REPORT FROM SWIMMING POOL SERVICER NURSE, YRIS RN, FOR CONTINUITY OF CARE. AOX4, ABLE TO MAKE NEEDS KNOWN, ON RA, AFIB ON MONITOR, IN COMFORTABLE POSITION, DIAMOND PICKER IN PLACE, PULSE OXIMETER IN PLACE, SAFETY MEASURES IN PLACE, BED IN LOW POSITION, WILL CONTINUE TO MONITOR
--- NOTE | 2021-01-14 07:25 | NUR ---
report given to day shift for continuity of care.
[2021-01-14] MEDS: BUMETANIDE 1 MG TAB PO SCH ×2 (08:28→21:34)
[2021-01-14] MEDS: FAMOTIDINE 20 MG TAB PO SCH ×2 (08:28→21:34)
[2021-01-14] MEDS: CALCIUM CARBONATE 500 MG TAB.CHEW PO SCH ×2 (08:29→21:33)
[2021-01-14] MEDS: DIGOXIN 0.125 MG TAB PO SCH (08:29)
[2021-01-14] MEDS: QUEtiapine FUMARATE 25 MG TAB PO SCH ×2 (08:29→21:00)
[2021-01-14] MEDS: ASPIRIN 81 MG TAB.CHEW PO SCH (08:29)
[2021-01-14] MEDS: METOPROLOL 25 MG TAB PO SCH ×2 (08:30→21:36)
[2021-01-14] MEDS: PANTOPRAZOLE 40 MG TABEC PO SCH (08:30)
[2021-01-14] MEDS: AMIODARONE 200 MG TAB PO SCH (08:30)
--- NOTE | 2021-01-14 08:30 | NUR ---
ADMINISTERED SCHEDULED AM MEDS, AOX4, ON RA, O2 SAT AT 98, ABLE TO MAKE NEEDS KNOWN, REFUSED SEROQUEL, PATIENT STATES THAT IT MAKES HIM DROWSY, HYGIENE CARE, ORAL CARE, AND CHG BATH PROVIDED, WILL CONTINUE TO MONITOR.
[2021-01-14] MEDS: METHADONE 10 MG TAB PO SCH (08:31)
--- NOTE | 2021-01-14 09:20 | NUR ---
DR. LEVI ALCARAZ UPDATED ON PATIENT STATUS, RECOMMEND TO TAKE PICTURE SACRAL REDNESS, AND DOWNGRADE TO TELE.
--- NOTE | 2021-01-14 11:20 | NUR ---
CHECKED BLOOD SUGAR, 282, COVERED WITH 6 UNITS PER MD SLIDING SCALE, MOVED PATIENT TO ROOM 124, WILL CONTINUE TO MONITOR.
--- NOTE | 2021-01-14 11:50 | NUR ---
DR.SYED ALCARAZ, UPDATED ON PATIENT STATUS, RECOMMENDED TO DC THE IVF, WILL CONTINUE TO MONITOR.
--- NOTE | 2021-01-14 15:00 | NUR ---
CHECKED ON PATIENT, NO SIGNS OF DISTRESS, WILL CONTINUE TO MONITOR.
--- NOTE | 2021-01-14 16:25 | NUR ---
CHECKED PATIENTS BLOOD SUGAR, 281, COVERED WITH 6 UNITS PER MD SLIDING SCALE. PATIENT IN COMFORTABLE POSITION, WILL CONTINUE TO MONITOR.
--- NOTE | 2021-01-14 16:50 | NUR ---
PT TRANSFERRED TO [facility] AT THIS TIME. ENDORSEMENT RECEIVED. PT IS STABLE LAYING IN BED DENIES ANY DISTRESS. SAFETY MEASURES IN PLACE. PLAN OF CARE DISCUSSED WILL CONTINUE POC.
--- NOTE | 2021-01-14 16:50 | NUR ---
ENDORSED TO TELE NURSE, LOGAN MEYER, FOR CONTINUITY OF CARE.
--- NOTE | 2021-01-14 17:41 | NUR ---
UA SPECIMEN COLLECTED AND ROUTED TO LAB
--- NOTE | 2021-01-14 18:19 | NUR ---
PT RESTING IN BED IN NO DISTRESS. CALL LIGHT WITHIN REACH
--- NOTE | 2021-01-14 19:25 | NUR ---
PT ENDORSED TO INVESTMENT ADVISOR RN FOR CONTINUITY OF CARE. PT IS STABLE
--- NOTE | 2021-01-14 19:26 | NUR ---
RECEIVED REPORT FROM ANGEL FOSTER. PT AOX4 ON RA. NO S/S RESPIRATORY DISTRESS NOTED. NO C/O PAIN AT THIS TIME. HAS DEO PICC PATENT INTACT. SAFETY MEASURES IN PLACE. CALL LIGHT WITHIN REACH. WILL CONTINUE TO MONITOR
[2021-01-14] MEDS: ATORVASTATIN 20 MG TAB PO SCH (21:35)
[2021-01-14] MEDS: DOCUSATE SODIUM 100 MG GELCAP PO PRN (21:44)
--- NOTE | 2021-01-14 21:56 | NUR ---
ADMINISTERED SCHEDULED MEDS, REFUSED SEROQUEL. MEDICATION EDUCATION PROVIDED. NO DISTRESS NOTED. WILL CONTINUE TO MONITOR
[2021-01-14 22:39] LABS: BARBITURATE, URINE NEGATIVE ng/ml (NEG <=200); BENZODIAZEPINE, URINE NEGATIVE ng/mL (NEG <=200); CANNABINOID, URINE NEGATIVE ng/mL (NEG <=50); COCAINE, URINE NEGATIVE ng/mL (NEG <=300); OPIATE, URINE POSITIVE ng/mL (NEG <=2000); PHENCYCLIDINE SCREEN,URINE NEGATIVE ng/mL (NEG <=25)
[2021-01-14] MEDS: LEVOFLOXACIN 500 MG/D5W PREMIX 100 ML IV SCH (23:04)
[2021-01-15] VITALS (7 sets, daily range): BP systolic 119–152; BP diastolic 71–98
--- NOTE | 2021-01-15 00:29 | NUR ---
PT ASLEEP IN BED. RESPIRATIONS EVEN UNLABORED. NO DISTRESS NOTED. WILL CONTINUE TO MONITOR
[2021-01-15] MEDS: metroNIDAZOLE 500 MG/NS PREMIX 100 ML IV SCH ×3 (04:07→20:21)
--- NOTE | 2021-01-15 04:35 | NUR ---
DUE MEDICATION GIVE. CLEANED CHANGED REPOSITIONED PT, TOLERATED WELL. DENIES CHEST PAIN. DENIES DISCOMFORT. NO DISTRESS NOTED. SAFETY MEASURES IN PLACE. CALL LIGHT WITHIN REACH. WILL CONTINUE TO MONITOR
[2021-01-15 06:00] LABS: ANION GAP 7.3 (8-16); CARBON DIOXIDE 30.8 mmol/L (21-32); CREATININE 0.7 mg/dL (0.6-1.3); POTASSIUM 4.1 mmol/L (3.5-5.1)
[2021-01-15] MEDS: BLOOD GLUCOSE MONITORING 1 DEV DEV FS SCH ×4 (06:01→21:28)
[2021-01-15 06:07] LABS: BASOPHILS % (AUTO) 0.6 % (0.0-2.0); EOSINOPHILS # (AUTO) 0.2 K/uL (0-0.4); EOSINOPHILS % (AUTO) 1.8 % (0.0-4.0); HEMATOCRIT 37.4 % (36-52); HEMOGLOBIN 12.3 g/dL (12.0-18.0); LYMPHOCYTES # (AUTO) 0.6 K/uL (2.0-11.5); LYMPHOCYTES % (AUTO) 7.5 % (20.5-51.1); MEAN CORPUSCULAR HEMOGLOBIN 30 pg (27-31); MEAN CORPUSCULAR HGB CONC 33 g/dL (33-37); MONOCYTES # (AUTO) 0.7 K/uL (0.8-1.0); MONOCYTES % (AUTO) 8.7 % (1.7-9.3); NEUTROPHILS % (AUTO) 81.4 % (42.2-75.2); PLATELET COUNT (AUTO) 147 K/uL (140-450); RED BLOOD CELL COUNT(AUTO) 4.07 MIL/uL (4.20-6.10); RED CELL DISTRIBUTION WIDTH 15.2 % (11.6-13.7); WHITE BLOOD COUNT (AUTO) 8.6 K/uL (4.8-10.8)
[2021-01-15] MEDS: INSULIN LISPRO SLIDING SCALE 100 UNITS/ML VIAL SUBQ PRN ×4 (06:17→21:25)
--- NOTE | 2021-01-15 06:29 | NUR ---
4 UNITS HUMALOG GIVEN SUBQ FOR BLOOD SUGAR 224. NO DISTRESS NOTED. SAFETY MEASURES IN PLACE. CALL LIGHT WITHIN REACH. WILL CONTINUE TO MONITOR
--- NOTE | 2021-01-15 07:13 | NUR ---
ENDORSED PT TO DAY RN FOR CONTINUITY OF CARE. PT IS IN STABLE CONDITION
--- NOTE | 2021-01-15 08:00 | NUR ---
PATIENT AWAKE, ALERT AND ORIENTED X4, ABLE TO MAKE NEEDS KNOW. NOTED TO BE ON 2LPM VIA NASAL CANULA. DENIES PAIN AT THIS TIME. ABLE TO MAKE POSITIONAL CHANGES INDEPENDENTLY IN BED. 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 NOTED BRUISING TO RIGHT ARMPIT, INTACT. RIGHT UPPER ARM DOUBLE LUMEN PICC LINE NOTED, PATENT AND INTACT. CALL LIGHT WITHIN EASY REACH. BED IN LOWEST POSITION. PATIENT EDUCATED TO CALL FOR ASSISTANCE BEFORE GETTING OUT OF BED.
[2021-01-15] MEDS: DIGOXIN 0.125 MG TAB PO SCH (09:34)
[2021-01-15] MEDS: QUEtiapine FUMARATE 25 MG TAB PO SCH ×2 (09:34→20:22)
[2021-01-15] MEDS: CALCIUM CARBONATE 500 MG TAB.CHEW PO SCH ×2 (09:35→20:23)
[2021-01-15] MEDS: AMIODARONE 200 MG TAB PO SCH (09:35)
[2021-01-15] MEDS: FAMOTIDINE 20 MG TAB PO SCH ×2 (09:35→20:22)
[2021-01-15] MEDS: METOPROLOL 25 MG TAB PO SCH ×2 (09:36→20:23)
[2021-01-15] MEDS: PANTOPRAZOLE 40 MG TABEC PO SCH (09:37)
[2021-01-15] MEDS: BUMETANIDE 1 MG TAB PO SCH ×2 (09:37→20:28)
[2021-01-15] MEDS: ASPIRIN 81 MG TAB.CHEW PO SCH (09:38)
[2021-01-15] MEDS: METHADONE 10 MG TAB PO SCH (09:38)
--- NOTE | 2021-01-15 10:15 | NUR ---
WOUND CARE EVALUATION NOTE: PT. ADMITTED WITH CHF ACUTE RESPIRATORY FAILURE AND PRESSURE INJURY TO SACRALCOCCYX. PT. IS AAX4, POC DISCUSSED, ALL QUESTION ANSWERED. INTEGUMENTARY: -SCROTAL MAD SKIN RASHES / RED -SACRALCOCCYX PRESSURE INJURY STAGE 4, 0.7X0.6X0.3CM WOUND BED 100% WHITE, DRY AND, NO ODOR, PERIWOUND SKIN HEALED SCARS PALE PINK IN COLOR AND INTACT. PAIN 0/10 -LEFT BKA STUMP HEALED SCARS -RIGHT LOWER LEG TO DORSAL FOOT XEROSIS THICK DRY SKIN, NO OPEN WOUND -RIGHT FOOT AND HEELS OLD HEALED SCARS WITH XEROSIS SKIN, NO OPEN WOUND -FUNGAL NAILS AND INTER DIGIT SPACES DRY FISSURES WITH DEBRIS NO OPEN WOUND RECOMMENDATION: -CLEANSE SACRALCOCCYX WITH NS. PAT DRY APPLY HYDROGEL TO WOUND BED AND COVER WITH DRY DRESSING QD AND PRN IF SOILING -CLEANSE SCROTAL AREA AND RIGHT FOOT WITH SOAP AND WATER, RINSE AND PAT DRY, APPLY ANTIFUNGAL CREAMS BID AND YARDER ENGINEER -APPLY HYDRAGUARD TO RLE/FOOT BID AND LEAVE IT OPEN TO AIR -CLEANSE SACRALCOCCYX WITH NS, PAT DRY, APPLY HYDROGEL AND COVER WITH DRY DRESSING QD AND PRN IF SOILING -TURN AND REPOSITION PATIENT Q 2H -ASSESS AND MONITOR SKIN CONDITION DURING POSITION CHANGE -OFFLOAD BILATERAL HEELS BY PLACING PILLOWS UNDER CALVES AT ALL TIMES, UNLESS OTHERWISE CONTRAINDICATED -PRESSURE REDISTRIBUTION BY PLACING PILLOWS AND OFFLOADING SACRALCOCCYX -KEEP SKIN CLEAN AND DRY AT ALL TIMES. PLEASE CONTACT WOUND CARE NURSE FOR ANY QUESTION AND CHANGE OF SKIN CONDITION.
[2021-01-15] MEDS: SKINTEGRITY HYDROGEL TP SCH (14:00)
--- NOTE | 2021-01-15 14:45 | NUR ---
01/15/21 RD FOLLOW UP COMPLETED PLEASE REFER TO NUTRITION ASSESSMENT UNDER CARE ACTIVITY FOR ESTIMATED NUTRITIONAL NEEDS. 1. RECOMMEND MECHANICAL SOFT 75GM CCHO DIET TOLERATED 2. RECOMMEND TAMMI 1 PACK BID FOR WOUND HEALING 3. RD PROVIDE CHF AND CONSISTENT CARBOHYDRATE NUTRITION EDUCATION 4. RD TO FOLLOW-UP 3-5 DAYS, MODERATE RISK COLT RAI RD
[2021-01-15] MEDS: HYDRAGUARD CREAM TP SCH (15:29)
--- NOTE | 2021-01-15 19:00 | NUR ---
PATIENT ASLEEP AT THIS TIME. TOLERATED DINNER WELL. DENIES PAIN. CONTINUITY OF CARE ENDORSED TO PM NURSE.
[2021-01-15] MEDS: ATORVASTATIN 20 MG TAB PO SCH (20:24)
[2021-01-15] MEDS: LEVOFLOXACIN 500 MG/D5W PREMIX 100 ML IV SCH (21:27)
[2021-01-16] VITALS: BP 125/81
[2021-01-16] MEDS: HYDRAGUARD CREAM TP SCH ×2 (01:29→12:44)
[2021-01-16 04:00] VITALS: BP 127/89
[2021-01-16 05:53] LABS: BASOPHILS # (AUTO) 0.1 K/uL (0.00-0.22); BASOPHILS % (AUTO) 0.9 % (0.0-2.0); EOSINOPHILS # (AUTO) 0.1 K/uL (0-0.4); EOSINOPHILS % (AUTO) 1.1 % (0.0-4.0); HEMATOCRIT 39.9 % (36-52); HEMOGLOBIN 12.6 g/dL (12.0-18.0); LYMPHOCYTES # (AUTO) 1.1 K/uL (2.0-11.5); LYMPHOCYTES % (AUTO) 10.9 % (20.5-51.1); MEAN CORPUSCULAR HEMOGLOBIN 30 pg (27-31); MEAN CORPUSCULAR HGB CONC 32 g/dL (33-37); MEAN CORPUSCULAR VOLUME 93.4 fL (80-94); MONOCYTES # (AUTO) 1.1 K/uL (0.8-1.0); MONOCYTES % (AUTO) 10.2 % (1.7-9.3); NEUTROPHILS % (AUTO) 76.9 % (42.2-75.2); PLATELET COUNT (AUTO) 143 K/uL (140-450); RED BLOOD CELL COUNT(AUTO) 4.28 MIL/uL (4.20-6.10); RED CELL DISTRIBUTION WIDTH 15.5 % (11.6-13.7); WHITE BLOOD COUNT (AUTO) 10.4 K/uL (4.8-10.8)
[2021-01-16] MEDS: INSULIN LISPRO SLIDING SCALE 100 UNITS/ML VIAL SUBQ PRN ×2 (06:14→12:46)
[2021-01-16 06:41] LABS: ANION GAP 8.8 (8-16); CARBON DIOXIDE 29.3 mmol/L (21-32); CREATININE 0.7 mg/dL (0.6-1.3); POTASSIUM 4.1 mmol/L (3.5-5.1)
[2021-01-16] MEDS: BLOOD GLUCOSE MONITORING 1 DEV DEV FS SCH ×2 (06:45→11:30)
--- NOTE | 2021-01-16 07:35 | NUR ---
RECEIVED REPORT FROM PROGRAM ATTENDANT NURSE. PATIENT IN STABLE CONDITION. SAFETY MEASURES IN PLACE, CALL LIGHT WITHIN REACH. WILL CONTINUE TO MONITOR.
[2021-01-16 08:00] VITALS: BP 131/88
[2021-01-16] MEDS: ASPIRIN 81 MG TAB.CHEW PO SCH (09:03)
[2021-01-16] MEDS: BUMETANIDE 1 MG TAB PO SCH (09:03)
[2021-01-16] MEDS: METOPROLOL 25 MG TAB PO SCH (09:04)
[2021-01-16] MEDS: FAMOTIDINE 20 MG TAB PO SCH (09:04)
[2021-01-16] MEDS: CALCIUM CARBONATE 500 MG TAB.CHEW PO SCH (09:04)
[2021-01-16] MEDS: QUEtiapine FUMARATE 25 MG TAB PO SCH (09:04)
[2021-01-16] MEDS: DIGOXIN 0.125 MG TAB PO SCH (09:04)
[2021-01-16] MEDS: PANTOPRAZOLE 40 MG TABEC PO SCH (09:04)
[2021-01-16] MEDS: METHADONE 10 MG TAB PO SCH (09:04)
[2021-01-16] MEDS: AMIODARONE 200 MG TAB PO SCH (09:05)
--- NOTE | 2021-01-16 09:18 | NUR ---
SCHEDULED MEDICATIONS DUE GIVEN. WILL CONTINUE TO MONITOR.
--- NOTE | 2021-01-16 09:19 | NUR ---
PHYSICAL THERAPY AT BEDSIDE WORKING WITH PATIENT. WILL CONTINUE TO MONITOR.
[2021-01-16] MEDS ORDERED: BUME1TAB92 PO (10:45)
[2021-01-16] MEDS ORDERED: DIGO0.122 PO (10:45)
[2021-01-16] MEDS ORDERED: LEVO750T51 PO (10:47)
[2021-01-16] MEDS: SKINTEGRITY HYDROGEL TP SCH (12:44)
--- NOTE | 2021-01-16 12:46 | NUR ---
SCHEDULED MEDICATIONS DUE GIVEN. WILL CONTINUE TO MONITOR.
[2021-01-16] MEDS ORDERED: ANTIFUNGAL CLEAR OINTMENT TP SCH (13:00)
--- NOTE | 2021-01-16 13:15 | NUR ---
CALLED [facility] AND GAVE REPORT TO EVELYN MEYER. ANSWERED ALL OF HIS QUESTIONS REGARDING TRANSFER. NOTIFIED HIM OF EXPECTED PICKUP TIME OF 1350. [facility] TO AWAIT FOR PATIENT ARRIVAL PROVIDED DISCHARGE INSTRUCTIONS TO PATIENT. INSTRUCTIONS ON NEW MEDICATION REGIMEN AND SIDE EFFECTS, DIET REGIMEN, FLUID RESTRICTIONS, AND MANAGEMENT OF PNEUMONIA. ANSWERED ALL OF PATIENT'S QUESTIONS REGARDING DISCHARGE. AWAITING TRANSPORTERS TO ARRIVE TO TAKE HIM TO [facility]. WILL CONTINUE TO MONITOR.
--- NOTE | 2021-01-16 17:55 | NUR ---
TRANSPORTERS ON UNIT TO TAKE PATIENT TO [facility]. ID BANDS REMOVED. IV SITE REMOVED WITH MINIMAL BLOOD AND LUMEN COMPLETELY INTACT. PATIENT TRANSFERRED AT THIS TIME TO [facility] IN STABLE CONDITION.
== END 2021-01-16 17:57 | DRG 720 ==
LOC: MED 21:42 → MTU 01-11 05:32 → MMU 01-11 05:56 → MTU 01-14 11:48
PROVIDERS: ADMIT Emergency Medicine; ATTEND Emergency Medicine
PROC: 02HV33Z Insertion of Infusion Device into Superior Vena Cava, Percutaneous Approach (ICD-10-PCS; principal; 2021-01-11)
DX: A41.9 Sepsis, unspecified organism (principal); J18.9 Pneumonia, unspecified organism; J96.00 Acute respiratory failure, unspecified whether with hypoxia or hypercapnia; G93.41 Metabolic encephalopathy; I48.91 Unspecified atrial fibrillation; Z20.822 Contact with and (suspected) exposure to COVID-19; E43 Unspecified severe protein-calorie malnutrition; I21.A1 Myocardial infarction type 2; I11.0 Hypertensive heart disease with heart failure; N17.0 Acute kidney failure with tubular necrosis; R16.2 Hepatomegaly with splenomegaly, not elsewhere classified; I42.9 Cardiomyopathy, unspecified; E11.51 Type 2 diabetes mellitus with diabetic peripheral angiopathy without gangrene; I25.119 Atherosclerotic heart disease of native coronary artery with unspecified angina pectoris; R65.21 Severe sepsis with septic shock; E78.00 Pure hypercholesterolemia, unspecified; I50.23 Acute on chronic systolic (congestive) heart failure; Z89.512 Acquired absence of left leg below knee; Z79.82 Long term (current) use of aspirin; Z79.4 Long term (current) use of insulin; Z79.899 Other long term (current) drug therapy; Z85.46 Personal history of malignant neoplasm of prostate; Z92.3 Personal history of irradiation; Z68.1 Body mass index [BMI] 19.9 or less, adult
CPT/HCPCS: 36415; 36600; 71045; 76705; 76770; 80048; 80053; 80305; 81001; 82550; 82728; 82803; 82948; 83036; 83605; 83615; 83735; 83880; 84100; 84436; 84439; 84443; 84479; 84484; 85025; 85379; 85384; 85610; 85730; 86140; 86704; 86706; 86708; 86709; 86803; 87040; 87081; 87086; 87340; 87420; 87804; 96365; 96367; 96375; 96376; 97110; 97530; 99291; A6248; J0696; J1160; J1644; J1650; J1940; J1956; J2405; J3490; J7030; J7042; J7060; U0003